=== PATIENT | female | born 1935 | race Caucasian/White ===

== ENCOUNTER 2019-02-10 20:53 | Observation (INO) | payer MEDICARE ==
[2019-02-10] MEDS ORDERED: PANTOPRAZOLE 40 MG/10 ML VIAL IVP ONE (22:08)
--- NOTE | 2019-02-10 22:09 | ED ---
General Adult HPI - General Chief complaint: GI Bleed Stated complaint: Coughing blood, stent on saturday Time Seen by Provider: 02/10/19 21:10 Source: patient Mode of arrival: wheelchair Limitations: no limitations - History of Present Illness Initial comments: Dictation was produced using [employer] dictation software. please excuse any gr ammatical, word or spelling errors. Chief Complaint: 84-year-old female past medical history dyslipidemia hypertension diabetes and coronary artery disease presents with oral bleeding. History of Present Illness: Is an 84-year-old female she was just discharged from [facility] on Saturday for coronary artery disease. Patient had an elective catheterization with stent placement. She was discharged with no significant complications. She has pain in her usual state of health. At approximate 9 PM she was eating ice cream with her family. She noted that there was some blood on her ice cream. Her aspirin was not taking any red ingredients. She then reached for a [employer] and spit up and noted that there is bright red blood. Patient denies any coughing at that time. Patient has any abdominal pain or epigastric pain. Patient does not have a history of ulcer. She has not have been having any postprandial symptoms. Patient denies any coughing during these episodes. The ROS documented in this emergency department record has been reviewed and confirmed by me. Those systems with pertinent positive or negative responses have been documented in the HPI. All other systems are other negative and/or noncontributory. PHYSICAL EXAM: General Impression: Alert and oriented x3, not in acute distress HEENT: Normocephalic atraumatic, extra-ocular movements intact, pupils equal and reactive to light bilaterally, mucous membranes moist, no oral lesions. Cardiovascular: Heart regular rate and rhythm, S1&S2 audible, no murmurs, rubs or gallops Chest: Lungs clear to auscultation bilaterally, no rhonchi, no wheeze, no rales Abdomen: Bowel sounds present, abdomen soft, non-tender, non-distended, no organomegaly Musculoskeletal: Pulses present and equal in all extremities, no peripheral edema Motor: no focal deficits noted Neurological: CN II-XII grossly intact, no focal motor or sensory deficits noted Skin: Intact with no visualized rashes Psych: Normal affect and mood ED course: 84-year-old female presents with bleeding noted from her mouth. Is unclear whether it's hemoptysis or hematemesis given that the bleeding is not associated with coughing or retching. On arrival are within acceptable limits. Patient was observed in emergency department should he have another episode. There was no coughing. There is more suspicion of hematemesis versus hemoptysis.Laboratory evaluation obtained. Leukocytosis of 18.3. This is likely related to recent cardiac catheterization and stress. Coag panel unremarkable. Metabolic panel is negative for any acute issues. Acute abdominal series is read by radiologist. They noted there is patchy bilateral interstitial airspace opacities. Sulci large cardiac silhouette. There is some lucency noted the diaphragmatic region which may represent pneumoperitoneum. Patient denies any abdominal pain whatsoever today. Likely not pneumoperitoneum based on physical examination. Patient continued to have couple episodes of blood in her spit up. Patient given Protonix. We will place patient in observ ation unit with GI on consultation. - Related Data Home Medications Medication Instructions Recorded Confirmed Cyanocobalamin [Vitamin B-12] 1,000 mcg PO DAILY 03/05/15 02/10/19 Multivitamins, Thera [Multivitamin 1 tab PO DAILY 03/05/15 02/10/19 (formulary)] Potassium 99 mg PO DAILY 03/05/15 02/10/19 Atorvastatin [Lipitor] 20 mg PO HS 03/11/15 02/10/19 Aspirin EC [Ecotrin Low Dose] 81 mg PO DAILY 02/10/19 02/10/19 Cetirizine HCl [Zyrtec] 10 mg PO DAILY PRN 02/10/19 02/10/19 Cholecalciferol [Vitamin D3 (25 1,000 unit PO DAILY 02/10/19 02/10/19 Mcg = 1000 Iu)] Clopidogrel [Plavix] 75 mg PO DAILY 02/10/19 02/10/19 Famotidine [Pepcid] 20 mg PO DAILY 02/10/19 02/10/19 Felodipine [Felodipine ER] 10 mg PO DAILY 02/10/19 02/10/19 Ferrous Sulfate [Feosol] 325 mg PO DAILY 02/10/19 02/10/19 L.acidoph,Paracasei, B.lactis 1 cap PO DAILY 02/10/19 02/10/19 [Probiotic] Linagliptin [Tradjenta] 5 mg PO DAILY 02/10/19 02/10/19 amLODIPine [Norvasc] 5 mg PO DAILY 02/10/19 02/10/19 Allergies Allergy/AdvReac Type Severity Reaction Status Date / Time articaine HCl Allergy Rash/Hives Verified 02/10/19 21:21 [From Septocaine] codeine Allergy Rash/Hives Verified 02/10/19 21:21 epinephrine [From Septocaine] Allergy Rash/Hives Verified 02/10/19 21:21 erythromycin base Allergy Rash/Hives Verified 02/10/19 21:21 Iodinated Contrast- Oral and Allergy Rash/Hives Verified 02/10/19 21:21 IV Dye [Iodinated Contrast Media - IV Dye] morphine Allergy Nausea & Verified 02/10/19 21:21 Vomiting phenazopyridine HCl Allergy Rash/Hives Verified 02/10/19 21:21 [From Pyridium] streptomycin Allergy Rash/Hives Verified 02/10/19 21:21 Sulfa (Sulfonamide Allergy Rash/Hives Verified 02/10/19 21:21 Antibiotics) Review of Systems ROS Statement: Those systems with pertinent positive or pertinent negative responses have been documented in the HPI. ROS Other: All systems not noted in ROS Statement are negative. Past Medical History Past Medical History: Hyperlipidemia, Hypertension History of Any Multi-Drug Resistant Organisms: None Reported Past Surgical History: Appendectomy, Heart Catheterization With Stent Additional Past Surgical History / Comment(s): Rt foot hammer toe repair, breast biopsy Past Anesthesia/Blood Transfusion Reactions: No Reported Reaction Past Psychological History: No Psychological Hx Reported Smoking Status: Former smoker Past Alcohol Use History: None Reported Past Drug Use History: None Reported - Past Family History Mother Family Medical History: Diabetes Mellitus General Exam Limitations: no limitations Course Vital Signs 02/10/19 21:05 Temperature 98.1 F Pulse Rate 61 Respiratory 18 Rate Blood Pressure 125/56 O2 Sat by Pulse 94 L Oximetry Medical Decision Making - Lab Data Result diagrams: 02/10/19 22:31 02/10/19 22:31 Lab Results 02/10/19 02/10/19 02/10/19 Range/Units 22:31 22:31 22:31 WBC 18.3 H (3.8-10.6) k/uL RBC 3.83 (3.80-5.40) m/uL Hgb 11.5 (11.4-16.0) gm/dL Hct 35.6 (34.0-46.0) % MCV 93.1 (80.0-100.0) fL MCH 30.0 (25.0-35.0) pg MCHC 32.2 (31.0-37.0) g/dL RDW 16.0 H (11.5-15.5) % Plt Count 343 (150-450) k/uL Neutrophils % 83 % Lymphocytes % 10 % Monocytes % 6 % Eosinophils % 1 % Basophils % 0 % Neutrophils # 15.1 H (1.3-7.7) k/uL Lymphocytes # 1.8 (1.0-4.8) k/uL Monocytes # 1.0 (0-1.0) k/uL Eosinophils # 0.1 (0-0.7) k/uL Basophils # 0.0 (0-0.2) k/uL Anisocytosis Slight PT 10.9 (9.0-12.0) sec INR 1.0 (<1.2) Sodium 141 (137-145) mmol/L Potassium 3.8 (3.5-5.1) mmol/L Chloride 106 (98-107) mmol/L Carbon Dioxide 26 (22-30) mmol/L Anion Gap 9 mmol/L BUN 47 H (7-17) mg/dL Creatinine 1.34 H (0.52-1.04) mg/dL Est GFR (CKD-EPI)AfAm 42 (>60 ml/min/1.73 sqM) Est GFR (CKD-EPI)NonAf 37 (>60 ml/min/1.73 sqM) Glucose 126 H (74-99) mg/dL Calcium 10.1 (8.4-10.2) mg/dL Total Bilirubin 0.4 (0.2-1.3) mg/dL AST 22 (14-36) U/L ALT 17 (9-52) U/L Alkaline Phosphatase 39 (38-126) U/L Total Protein 6.4 (6.3-8.2) g/dL Albumin 3.6 (3.5-5.0) g/dL Disposition Clinical Impression: Hematemesis Disposition: ADMITTED IP TO THIS [facility] Condition: Fair Referrals: Josh Llanos MD [Primary Care Provider] - 1-2 days Time of Disposition: 23:11 Decision Time: 23:11
--- NOTE | 2019-02-10 22:39 | XR ---
EXAM: XR Abdomen 2 Views With XR Chest CLINICAL HISTORY: ITS.REASON XR Reason: Pain TECHNIQUE: Frontal view of the chest, frontal view of the abdomen/pelvis and upright or decubitus view of the abdomen. COMPARISON: No relevant prior studies available. FINDINGS: Lungs: Patchy bilateral interstitial and airspace opacities. Pleural space: No significant pleural effusion. Heart: Enlarged cardiac silhouette. Mediastinum: Unremarkable. Intraperitoneal space: Lucency in the diaphragmatic region, cannot exclude pneumoperitoneum. Gastrointestinal tract: Nonspecific bowel gas pattern. Moderate amount of stool in the colon. Bones/joints: Degenerative changes. IMPRESSION: 1. Patchy bilateral interstitial and airspace opacities. Correlate clinically regarding infection or edema. 2. Enlarged cardiac silhouette. 3. Lucency in the diaphragmatic region, cannot exclude pneumoperitoneum. Correlate with history of recent surgery versus perforated hollow viscus. CT may be considered if indicated. <MYCVCSECTION> Critical [employer] 02/10/19 22:53 Verify Receipt Verified receipt with MELODY Harvey for Dr. Carias on 02/10 22:52 (-04:00)
[2019-02-10 22:45] LABS: Anisocytosis Slight; Basophils % (A) 0 %; Eosinophils # (A) 0.1 k/uL (0-0.7); Eosinophils % (A) 1 %; HCT 35.6 % (34.0-46.0); HGB 11.5 gm/dL (11.4-16.0); Lymphocytes # (A) 1.8 k/uL (1.0-4.8); Lymphocytes % (A) 10 %; MCHC 32.2 g/dL (31.0-37.0); MCV 93.1 fL (80.0-100.0); Mean Platelet Volume 7.7; Monocytes % (A) 6 %; Neutrophils # (A) 15.1 k/uL (1.3-7.7); Neutrophils % (A) 83 %; Platelet Count 343 k/uL (150-450); RBC 3.83 m/uL (3.80-5.40); WBC 18.3 k/uL (3.8-10.6)
[2019-02-10 22:49] LABS: Prothrombin Time 10.9 sec (9.0-12.0)
[2019-02-10 22:53] LABS: Albumin 3.6 g/dL (3.5-5.0); Calcium 10.1 mg/dL (8.4-10.2); Potassium 3.8 mmol/L (3.5-5.1); Total Bilirubin 0.4 mg/dL (0.2-1.3); Total Protein 6.4 g/dL (6.3-8.2)
[2019-02-10] MEDS ORDERED: NALOXONE 0.4 MG/ML 1 ML VIAL IV PRN (23:05)
[2019-02-10] MEDS ORDERED: ONDANSETRON 4 MG/2 ML VIAL IVP PRN (23:05)
[2019-02-11] MEDS: SODIUM CHLORIDE 0.9% 1,000 ML IV SCH ×2 (01:28→09:30)
[2019-02-11] MEDS ORDERED: PANTOPRAZOLE 40 MG/10 ML VIAL IV SCH ×2 (09:00→21:00)
[2019-02-11 11:58] LABS: Anisocytosis Slight; Basophils # (A) 0.1 k/uL (0-0.2); Basophils % (A) 0 %; Eosinophils # (A) 0.5 k/uL (0-0.7); Eosinophils % (A) 4 %; HCT 33.4 % (34.0-46.0); HGB 10.6 gm/dL (11.4-16.0); Lymphocytes # (A) 1.8 k/uL (1.0-4.8); Lymphocytes % (A) 13 %; MCH 30.1 pg (25.0-35.0); MCHC 31.6 g/dL (31.0-37.0); MCV 95.2 fL (80.0-100.0); Mean Platelet Volume 7.9; Monocytes # (A) 0.6 k/uL (0-1.0); Monocytes % (A) 4 %; Neutrophils # (A) 10.6 k/uL (1.3-7.7); Neutrophils % (A) 78 %; Platelet Count 309 k/uL (150-450); RBC 3.51 m/uL (3.80-5.40); RDW 16.2 % (11.5-15.5); WBC 13.7 k/uL (3.8-10.6)
[2019-02-11 12:02] LABS: Glucose,Whole Blood 84 mg/dL (75-99)
[2019-02-11] MEDS: ASPIRIN 81 MG PO SCH ×2 (12:23→14:42)
[2019-02-11] MEDS: CLOPIDOGREL 75 MG TAB PO SCH ×2 (12:23→14:42)
--- NOTE | 2019-02-11 12:30 | P.CONS ---
History of Present Illness - Reason for Consult Consult date: 02/11/19 GI bleed evaluation Requesting physician: Diallo Cerda - Chief Complaint Oral bleeding - History of Present Illness 84-year-old female with a past medical history of CAD with recent heart catheterization PCI drug eluting stent placement 5 days ago for 70% blockage of the LAD at [facility] placed on dual antiplatelet therapy, obesity, diabetes, hypertension, hyperlipidemia. Patient presents with an episode of oral bleeding. She describes it as eating a spoon of vanilla ice cream and noticing some red-colored blood. Patient is unsure if this was coming from her stomach nose or mouth. She did have a small nosebleed yesterday. But she is very adamant that she did not vomit blood. She denies hematochezia or melena. She reports darker color bowel movements secondary to iron therapy. No recent EGD however she did have an EGD colonoscopy around 3 years ago at [facility] to her memory was unremarkable. Admission white count 18.3. Presently 13.7. Hemoglobin 11.5 presently 10.6. MCV 93-95. Platelets 309. INR 1.0. BUN 47. Creatinine 1.3. LFTs within normal limits. Takes Pepcid at home. No history of peptic ulcer. Denies abdominal pain or weight loss. Abdominal chest x-rays reported patchy bilateral interstitial and airspace opacities. Correlate clinically regarding infection or edema. Enlarged cardiac silhouette. Lucency in the diaphragmatic region cannot exclude pneumoperitoneum correlate with recent surgery versus perforated hollow viscus. Review of previous CBCs average hemoglobin trends around 12 range. No NSAIDs excessive aspirin or alcohol consumption. Review of Systems Constitutional: Denies fever, chills, sweats, weight gain, or loss. HEENT: Negative for migraines, blurred vision or loss, earaches, drainage, tinnitus, oral mucosal lesions, dysphagia, or odynophagia. CARDIAC: Negative for chest pain, arrhythmias, or palpitation. RESPIRATORY: Negative for shortness of breath, hemoptysis, cough, or sputum production. GI: See HPI for pertinent findings. : Negative for hematuria, urgency, frequency, polyuria, or dysuria. GYNc: Denies possibility of . Negative vaginal discharge. MUSCULOSKELETAL: Negative for muscle aches, swelling, arthritis, and arthralgia s. NEUROLOGIC: Negative for stroke or TIA. ENDOCRINE: Negative for thyroid problems. SKIN: Negative for rash or itching. PSYCHIATRIC: Negative history for depression and anxiety Past Medical History Past Medical History: Hyperlipidemia, Hypertension History of Any Multi-Drug Resistant Organisms: None Reported Past Surgical History: Appendectomy, Heart Catheterization With Stent Additional Past Surgical History / Comment(s): Rt foot hammer toe repair, breast biopsy, right leg surgery Past Anesthesia/Blood Transfusion Reactions: No Reported Reaction Date of Last Stent Placement:: na pt. dosnt remember Past Psychological History: No Psychological Hx Reported Smoking Status: Former smoker Past Alcohol Use History: None Reported Past Drug Use History: None Reported - Past Family History Mother Family Medical History: Diabetes Mellitus Medications and Allergies Home Medications Medication Instructions Recorded Confirmed Type Cyanocobalamin [Vitamin B-12] 1,000 mcg PO DAILY 03/05/15 02/10/19 History Multivitamins, Thera [Multivitamin 1 tab PO DAILY 03/05/15 02/10/19 History (formulary)] Potassium 99 mg PO DAILY 03/05/15 02/10/19 History Atorvastatin [Lipitor] 20 mg PO HS 03/11/15 02/10/19 History Aspirin EC [Ecotrin Low Dose] 81 mg PO DAILY 02/10/19 02/10/19 History Cetirizine HCl [Zyrtec] 10 mg PO DAILY PRN 02/10/19 02/10/19 History Cholecalciferol [Vitamin D3 (25 1,000 unit PO DAILY 02/10/19 02/10/19 History Mcg = 1000 Iu)] Clopidogrel [Plavix] 75 mg PO DAILY 02/10/19 02/10/19 History Famotidine [Pepcid] 20 mg PO DAILY 02/10/19 02/10/19 History Felodipine [Felodipine ER] 10 mg PO DAILY 02/10/19 02/10/19 History Ferrous Sulfate [Feosol] 325 mg PO DAILY 02/10/19 02/10/19 History L.acidoph,Paracasei, B.lactis 1 cap PO DAILY 02/10/19 02/10/19 History [Probiotic] Linagliptin [Tradjenta] 5 mg PO DAILY 02/10/19 02/10/19 History amLODIPine [Norvasc] 5 mg PO DAILY 02/10/19 02/10/19 History Allergies Allergy/AdvReac Type Severity Reaction Status Date / Time articaine HCl Allergy Rash/Hives Verified 02/10/19 21:21 [From Septocaine] codeine Allergy Rash/Hives Verified 02/10/19 21:21 epinephrine [From Septocaine] Allergy Rash/Hives Verified 02/10/19 21:21 erythromycin base Allergy Rash/Hives Verified 02/10/19 21:21 Iodinated Contrast- Oral and Allergy Rash/Hives Verified 02/10/19 21:21 IV Dye [Iodinated Contrast Media - IV Dye] morphine Allergy Nausea & Verified 02/10/19 21:21 Vomiting phenazopyridine HCl Allergy Rash/Hives Verified 02/10/19 21:21 [From Pyridium] streptomycin Allergy Rash/Hives Verified 02/10/19 21:21 Sulfa (Sulfonamide Allergy Rash/Hives Verified 02/10/19 21:21 Antibiotics) Physical Exam Vitals: Vital Signs Temp Pulse Pulse Resp BP BP Pulse Ox 02/11/19 07:05 97.6 F 71 16 110/56 91 L 02/11/19 01:16 97.8 F 91 15 135/77 92 L 02/11/19 00:08 92 18 149/74 94 L 02/10/19 21:05 98.1 F 61 18 125/56 94 L Intake and Output 02/10/19 02/11/19 02/11/19 22:59 06:59 14:59 Other: Voiding Method Toilet # Voids 1 Weight 97.069 kg General appearance: The patient is alert, oriented, in no acute distress. HET: Head is normocephalic and atraumatic. Pupils are equal and reactive. Oropharynx is clear without lesions. Neck: Supple without lymphadenopathy. Trachea midline. Heart: S1 S2. Regular rate and rhythm. Lungs: No crackles or wheezes are heard. Abdomen: Soft, nontender, nondistended with bowel sounds. No peritoneal signs. No palpable organomegaly or masses. Extremities: Normal skin color and turgor. No cyanosis, rash, ulceration, clubbing, or edema. Radial and pedal pulses are 2/4 bilaterally. Neurological: No focal deficits. Strength and sensation are grossly intact. Results CBC & Chem 7: 02/11/19 11:42 02/10/19 22:31 Labs: Abnormal Lab Results - Last 24 Hours (Table) 02/10/19 02/10/19 02/11/19 Range/Units 22:31 22:31 11:42 WBC 18.3 H 13.7 H (3.8-10.6) k/uL RBC 3.51 L (3.80-5.40) m/uL Hgb 10.6 L (11.4-16.0) gm/dL Hct 33.4 L (34.0-46.0) % RDW 16.0 H 16.2 H (11.5-15.5) % Neutrophils # 15.1 H 10.6 H (1.3-7.7) k/uL BUN 47 H (7-17) mg/dL Creatinine 1.34 H (0.52-1.04) mg/dL Glucose 126 H (74-99) mg/dL Abdominal x-ray: report reviewed (Dr. Mora) Assessment and Plan (1) Anemia Narrative/Plan: 84-year-old female history of underlying iron deficiency anemia recent heart catheterization placement of drug eluting stent LAD 5 days ago at outside facility maintained on dual antiplatelet therapy presents with an isolated episode of oral bleeding and nosebleed unclear source with suspected component of acute blood loss. Clinically she has a benign abdomen without overt symptoms of an acute GI bleed however an underlying occult upper GI bleed cannot be excluded with elevated BUN and episode of oral bleeding. Patient vehemently denies abdominal pain, hematemesis, hematochezia or melena. Chest abdominal x- rays on admission could not exclude pneumoperitoneum. Current Visit: Yes Status: Acute Code(s): D64.9 - ANEMIA, UNSPECIFIED SNOMED Code(s): 890325440 (2) Elevated BUN Current Visit: Yes Status: Acute Code(s): R79.9 - ABNORMAL FINDING OF BLOOD CHEMISTRY, UNSPECIFIED SNOMED Code(s): 295423902 (3) S/P cardiac cath Current Visit: Yes Status: Acute Code(s): Z98.890 - OTHER SPECIFIED POSTPROCEDURAL STATES SNOMED Code(s): 82188856220266 (4) Hx of heart artery stent Current Visit: Yes Status: Acute Code(s): Z95.5 - PRESENCE OF CORONARY ANGIOPLASTY IMPLANT AND GRAFT SNOMED Code(s): 007442190 Plan: 1. STAT CT A/P. 2. GS consult. 3. NPO. 4. Hold DAPT until CT can be reviewed by GS. 5. Protonix 40 mg IV daily. Thank you for this kind referral and the opportunity to participate in the care of your patient. This consultation was discussed with Dr. Mora. The impre ssion and plan of care have been directed as dictated.
[2019-02-11] MEDS ORDERED: LORATADINE 10 MG TAB PO PRN (12:37)
--- NOTE | 2019-02-11 13:17 | CT ---
EXAMINATION TYPE: CT ChestAbdPelvis wo con DATE OF EXAM: 02/11/2019 COMPARISON: Same day acute abdominal series with chest x-ray HISTORY: Questionable free air on Xray. Abnormal x-ray. CT DLP: 1121.8 mGycm. Automated Exposure Control for Dose Reduction was Utilized. TECHNIQUE: CT scan of the thorax, abdomen and pelvis is performed without oral or IV contrast. FINDINGS: LUNGS: Small to tiny bilateral pleural effusions are seen. There is scattered parenchymal fibrosis in cluding bilateral peripheral reticulation with some honeycombing in the mid to lower lungs. There is 9 x 8 mm right mid lung nodule axial image 28 which warrants follow-up. No pneumothorax is seen bilat erally. No suspicious focal infiltrate. MEDIASTINUM: There are no greater than 1 cm noncalcified hilar or mediastinal lymph nodes. Prominent but partially calcified pericarinal lymph node noted axial image 19. No pericardial effusion is seen . Cardiomegaly is present. Coronary artery dilatation and/or stents are seen. LIVER/GB: Dependent gallstone in gallbladder. PANCREAS: No significant abnormality is seen. SPLEEN: Numerous calcifications throughout the spleen. Finding consistent with product of old granulo matous disease. ADRENALS: Low dense thickening to left adrenal gland is consistent with benign lipid rich hyperplasia . KIDNEYS: Cortical thinning of both kidneys is seen. No hydronephrosis is present. There is vascular c alcification of the upper pole of the left kidney axial image 51. BOWEL: No suspicious small and large bowel dilatation. Scattered colonic diverticula without CT evide nce for acute diverticulitis. Poorly distended stomach which is most suboptimally evaluated. GENITAL ORGANS: Anteverted uterus. LYMPH NODES: No greater than 1cm abdominal or pelvic lymph nodes are appreciated. OSSEOUS STRUCTURES: S- shaped scoliosis with moderate multilevel spurring. OTHER: Moderate calcified plaque of aorta extends into branch vessels. IMPRESSION: No free air is present. Moderate to severe parenchymal changes bilateral lungs raise conc kandice for underlying IPF. No acute intrathoracic or intra-abdominal process .
--- NOTE | 2019-02-11 13:50 | P.GSCN ---
<Sharri Gamboa - Last Filed: 02/11/19 16:16> History of Present Illness Consult date: 02/11/19 Reason for Consult: possible free air Requesting physician: Aurea Rios History of present illness: CHIEF COMPLAINT: possible free air HISTORY OF PRESENT ILLNESS: 84 year old female who recently underwent cardiac catheterization with stent placement on Wednesday February 06, 2019 at [facility] and was started on aspirin and plavix. Patient states she was discharged home Saturday and has been feeling well. She was eating ice cream yesterday and when she removed the spoon from her mouth she noticed there was some bright red blood on her spoon. She reports "After that, I spit up a little blood like how a baby spits up". Patient presented to the ER for further evaluation. She reports having a small nosebleed on the way to the hospital also. She denies further bleeding since that time. She denies nausea or vomiting. Denies abdominal pain. She reports having a bowel movement yesterday that was normal in characteristics. Patient denies any bright red blood. She does report her stools are usually darker in color secondary to daily iron. Patient reports last EGD/colonoscopy was two [facility] at [facility]. Patient states she underwent EGD and colonoscopy at that time secondary to anemia. Patient states she was told EGD and colonoscopy were normal. Patient denies history of diverticulosis. General surgery was consulted for further evaluation of possible free air per radiology dictation of x-rays. PAST MEDICAL HISTORY: See list. PAST SURGICAL HISTORY: See list. MEDICATIONS: See list. ALLERGIES: See list. SOCIAL HISTORY: No illicit drug use. REVIEW OF SYSTEMS: CONSTITUTIONAL: Denies fever or chills. HEENT: Denies blurred vision, vision changes, or eye pain. Reports recent nosebleed. ENDOCRINE: Denies heat or cold intolerance. CARDIOVASCULAR: Denies chest pain or pressure. Recent cardiac cath with stent placement. RESPIRATORY: No shortness of breath. GASTROINTESTINAL: See HPI for pertinent information NEURO: Denies history of seizures. PSYCH: No depression or suicidal ideation HEMATOLOGIC: Denies bleeding disorders. Reports history of anemia. LYMPHATIC: The patient denies any lumps and bumps around the neck. GENITOURINARY: Denies any blood in urine or increased urinary frequency. MUSCULOSKELETAL: Denies myalgias. Denies joint swelling. Denies decreased range of motion beyond patients baseline. SKIN: Denies pruitis. Denies rash. PHYSICAL EXAM: VITAL SIGNS: Currently stable. GENERAL: Well-developed in no acute distress. HEENT: No sclera icterus. Extraocular movements grossly intact. Moist buccal mucosa. Head is atraumatic, normocephalic. Hears conversational speech. No nasal drain age. NECK: Supple without lymphadenopathy. CHEST: Non-labored respirations and equal bilateral excursions. CARDIOVASCULAR: Regular rate with regular rhythm. Palpable 2+ radial pulses. ABDOMEN: Obese. Soft. Nondistended. Nontender. Positive bowel sounds. Ecchymosis to left lower quadrant and right lower quadrant. No signs of peritonitis. MUSCULOSKELETAL: No clubbing, cyanosis or edema. NEUROLOGIC: No focal or lateralizing signs. Cranial nerves II through XII grossly intact. PSYCH: Appropriate affect. Alert and oriented to person, place and time. SKIN: Well perfused. Good skin turgor. LABORATORY DATA: Laboratory data on admission reveals white count 18.3. Hemoglobin 11.5. Sodium 141. Potassium 3.8. BUN 47. Creatinine 1.34. Repeat white count this morning 13.7. Hemoglobin 10.6. IMAGING: Per radiology dictation: 1. Abdomen and chest XR: Patchy bilateral interstitial and airspace opacities. Correlate clinically regarding infection or edema. Enlarged cardiac silhouette. Lucency in diaphragmatic region. Cannot exclude pneumoperitoneum. Correlate with history of recent surgery versus perforated hollow viscus. 2. CT abdomen/pelvis: No free air is present. No suspicious small or large bowel dilation. Scattered colonic diverticula without CT evidence for acute diverticulitis. ASSESSMENT: 1. Episode of bleeding from oral cavity and nosebleed, resolved, possible upper GI bleed 2. Pneumoperitoneum, ruled out 3. Coronary artery disease with recent stent placement, started on aspirin and plavix 4. History of iron deficiency anemia with possible component of acute blood loss anemia PLAN: Patient clinically doing well without pneumoperitoneum. No surgical intervention recommended. Okay to resume aspirin and plavix from surgical standpoint. Will defer to medicine Okay to resume diet from a surgical standpoint. Will defer to GI Nurse practitioner note has been reviewed by physician. Signing provider agrees with the documented findings, assessment, and plan of care. Past Medical History Past Medical History: Hyperlipidemia, Hypertension History of Any Multi-Drug Resistant Organisms: None Reported Past Surgical History: Appendectomy, Heart Catheterization With Stent Additional Past Surgical History / Comment(s): Rt foot hammer toe repair, breast biopsy, right leg surgery Past Anesthesia/Blood Transfusion Reactions: No Reported Reaction Date of Last Stent Placement:: na pt. dosnt remember Past Psychological History: No Psychological Hx Reported Smoking Status: Former smoker Past Alcohol Use History: None Reported Past Drug Use History: None Reported - Past Family History Mother Family Medical History: Diabetes Mellitus Medications and Allergies Home Medications Medication Instructions Recorded Confirmed Type Cyanocobalamin [Vitamin B-12] 1,000 mcg PO DAILY 03/05/15 02/10/19 History Multivitamins, Thera [Multivitamin 1 tab PO DAILY 03/05/15 02/10/19 History (formulary)] Potassium 99 mg PO DAILY 03/05/15 02/10/19 History Atorvastatin [Lipitor] 20 mg PO HS 03/11/15 02/10/19 History Aspirin EC [Ecotrin Low Dose] 81 mg PO DAILY 02/10/19 02/10/19 History Cetirizine HCl [Zyrtec] 10 mg PO DAILY PRN 02/10/19 02/10/19 History Cholecalciferol [Vitamin D3 (25 1,000 unit PO DAILY 02/10/19 02/10/19 History Mcg = 1000 Iu)] Clopidogrel [Plavix] 75 mg PO DAILY 02/10/19 02/10/19 History Famotidine [Pepcid] 20 mg PO DAILY 02/10/19 02/10/19 History Felodipine [Felodipine ER] 10 mg PO DAILY 02/10/19 02/10/19 History Ferrous Sulfate [Feosol] 325 mg PO DAILY 02/10/19 02/10/19 History L.acidoph,Paracasei, B.lactis 1 cap PO DAILY 02/10/19 02/10/19 History [Probiotic] Linagliptin [Tradjenta] 5 mg PO DAILY 02/10/19 02/10/19 History amLODIPine [Norvasc] 5 mg PO DAILY 02/10/19 02/10/19 History Allergies Allergy/AdvReac Type Severity Reaction Status Date / Time articaine HCl Allergy Rash/Hives Verified 02/10/19 21:21 [From Septocaine] codeine Allergy Rash/Hives Verified 02/10/19 21:21 epinephrine [From Septocaine] Allergy Rash/Hives Verified 02/10/19 21:21 erythromycin base Allergy Rash/Hives Verified 02/10/19 21:21 Iodinated Contrast- Oral and Allergy Rash/Hives Verified 02/10/19 21:21 IV Dye [Iodinated Contrast Media - IV Dye] morphine Allergy Nausea & Verified 02/10/19 21:21 Vomiting phenazopyridine HCl Allergy Rash/Hives Verified 02/10/19 21:21 [From Pyridium] streptomycin Allergy Rash/Hives Verified 02/10/19 21:21 Sulfa (Sulfonamide Allergy Rash/Hives Verified 02/10/19 21:21 Antibiotics) Surgical - Exam Vital Signs Temp Pulse Resp BP Pulse Ox 98.1 F 61 18 125/56 94 L 02/10/19 21:05 02/10/19 21:05 02/10/19 21:05 02/10/19 21:05 02/10/19 21:05 Results - Labs 02/11/19 11:42 02/10/19 22:31 Abnormal Lab Results - Last 24 Hours (Table) 02/10/19 02/10/19 02/11/19 Range/Units 22:31 22:31 11:42 WBC 18.3 H 13.7 H (3.8-10.6) k/uL RBC 3.51 L (3.80-5.40) m/uL Hgb 10.6 L (11.4-16.0) gm/dL Hct 33.4 L (34.0-46.0) % RDW 16.0 H 16.2 H (11.5-15.5) % Neutrophils # 15.1 H 10.6 H (1.3-7.7) k/uL BUN 47 H (7-17) mg/dL Creatinine 1.34 H (0.52-1.04) mg/dL Glucose 126 H (74-99) mg/dL Diabetes panel 02/10/19 Range/Units 22:31 Sodium 141 (137-145) mmol/L Potassium 3.8 (3.5-5.1) mmol/L Chloride 106 (98-107) mmol/L Carbon Dioxide 26 (22-30) mmol/L BUN 47 H (7-17) mg/dL Creatinine 1.34 H (0.52-1.04) mg/dL Glucose 126 H (74-99) mg/dL Calcium 10.1 (8.4-10.2) mg/dL AST 22 (14-36) U/L ALT 17 (9-52) U/L Alkaline Phosphatase 39 (38-126) U/L Total Protein 6.4 (6.3-8.2) g/dL Albumin 3.6 (3.5-5.0) g/dL Calcium panel 02/10/19 Range/Units 22:31 Calcium 10.1 (8.4-10.2) mg/dL Albumin 3.6 (3.5-5.0) g/dL Pituitary panel 02/10/19 Range/Units 22:31 Sodium 141 (137-145) mmol/L Potassium 3.8 (3.5-5.1) mmol/L Chloride 106 (98-107) mmol/L Carbon Dioxide 26 (22-30) mmol/L BUN 47 H (7-17) mg/dL Creatinine 1.34 H (0.52-1.04) mg/dL Glucose 126 H (74-99) mg/dL Calcium 10.1 (8.4-10.2) mg/dL Adrenal panel 02/10/19 Range/Units 22:31 Sodium 141 (137-145) mmol/L Potassium 3.8 (3.5-5.1) mmol/L Chloride 106 (98-107) mmol/L Carbon Dioxide 26 (22-30) mmol/L BUN 47 H (7-17) mg/dL Creatinine 1.34 H (0.52-1.04) mg/dL Glucose 126 H (74-99) mg/dL Calcium 10.1 (8.4-10.2) mg/dL Total Bilirubin 0.4 (0.2-1.3) mg/dL AST 22 (14-36) U/L ALT 17 (9-52) U/L Alkaline Phosphatase 39 (38-126) U/L Total Protein 6.4 (6.3-8.2) g/dL Albumin 3.6 (3.5-5.0) g/dL Assessment and Plan (1) Mouth bleeding Current Visit: Yes Status: Acute Code(s): K13.79 - OTHER LESIONS OF ORAL MUCOSA SNOMED Code(s): 86661063 (2) Hx of heart artery stent Current Visit: Yes Status: Acute Code(s): Z95.5 - PRESENCE OF CORONARY ANGIOPLASTY IMPLANT AND GRAFT SNOMED Code(s): 624469720 (3) S/P cardiac cath Current Visit: Yes Status: Acute Code(s): Z98.890 - OTHER SPECIFIED POSTPROCEDURAL STATES SNOMED Code(s): 32395544684174 <Kati Ames N - Last Filed: 02/11/19 19:17> History of Present Illness History of present illness: Patient seen and evaluated. She reports recently being seen at [facility] for stent placement. She went to the bathroom today denies any hematemesis or blood in her stools earlier this afternoon including at the time of my assessment. I personally reviewed her abdominal x-ray which demonstrated no free air that is disconcordant with the radiologist's interpretation. I personally reviewed her computed tomography scan also demonstrated an umbilical hernia and she is asymptomatic. No surgical intervention. Patient is clear from a surgical standpoint for discharge when medically stable. Surgical - Exam Vital Signs Temp Pulse Resp BP Pulse Ox 98.1 F 61 18 125/56 94 L 02/10/19 21:05 02/10/19 21:05 02/10/19 21:05 02/10/19 21:05 02/10/19 21:05 Results - Labs 02/11/19 11:42 02/10/19 22:31 Abnormal Lab Results - Last 24 Hours (Table) 02/10/19 02/10/19 02/11/19 Range/Units 22:31 22:31 11:42 WBC 18.3 H 13.7 H (3.8-10.6) k/uL RBC 3.51 L (3.80-5.40) m/uL Hgb 10.6 L (11.4-16.0) gm/dL Hct 33.4 L (34.0-46.0) % RDW 16.0 H 16.2 H (11.5-15.5) % Neutrophils # 15.1 H 10.6 H (1.3-7.7) k/uL BUN 47 H (7-17) mg/dL Creatinine 1.34 H (0.52-1.04) mg/dL Glucose 126 H (74-99) mg/dL Diabetes panel 02/10/19 Range/Units 22:31 Sodium 141 (137-145) mmol/L Potassium 3.8 (3.5-5.1) mmol/L Chloride 106 (98-107) mmol/L Carbon Dioxide 26 (22-30) mmol/L BUN 47 H (7-17) mg/dL Creatinine 1.34 H (0.52-1.04) mg/dL Glucose 126 H (74-99) mg/dL Calcium 10.1 (8.4-10.2) mg/dL AST 22 (14-36) U/L ALT 17 (9-52) U/L Alkaline Phosphatase 39 (38-126) U/L Total Protein 6.4 (6.3-8.2) g/dL Albumin 3.6 (3.5-5.0) g/dL Calcium panel 02/10/19 Range/Units 22:31 Calcium 10.1 (8.4-10.2) mg/dL Albumin 3.6 (3.5-5.0) g/dL Pituitary panel 02/10/19 Range/Units 22:31 Sodium 141 (137-145) mmol/L Potassium 3.8 (3.5-5.1) mmol/L Chloride 106 (98-107) mmol/L Carbon Dioxide 26 (22-30) mmol/L BUN 47 H (7-17) mg/dL Creatinine 1.34 H (0.52-1.04) mg/dL Glucose 126 H (74-99) mg/dL Calcium 10.1 (8.4-10.2) mg/dL Adrenal panel 02/10/19 Range/Units 22:31 Sodium 141 (137-145) mmol/L Potassium 3.8 (3.5-5.1) mmol/L Chloride 106 (98-107) mmol/L Carbon Dioxide 26 (22-30) mmol/L BUN 47 H (7-17) mg/dL Creatinine 1.34 H (0.52-1.04) mg/dL Glucose 126 H (74-99) mg/dL Calcium 10.1 (8.4-10.2) mg/dL Total Bilirubin 0.4 (0.2-1.3) mg/dL AST 22 (14-36) U/L ALT 17 (9-52) U/L Alkaline Phosphatase 39 (38-126) U/L Total Protein 6.4 (6.3-8.2) g/dL Albumin 3.6 (3.5-5.0) g/dL
[2019-02-11] MEDS: INSULIN ASPART (NovoLOG) 100 UNIT/ML VIAL SQ SCH ×3 (14:06→22:21)
[2019-02-11] MEDS: FERROUS SULFATE 325 MG TAB PO SCH (14:41)
--- NOTE | 2019-02-11 15:36 | P.HPIM ---
History of Present Illness H&P Date: 02/11/19 Chief Complaint: Blood from the mouth History of presenting complaint: This is a very pleasant 84-year-old patient of Dr. Dr. Josh Llanos. Chronic stable medical conditions include hypertension, hyperlipidemia, coronary artery disease with stent. Patient had a stent placed about a week ago at an outside hospital. Patient is on aspirin and Plavix. Patient noticed yesterday when she opened her mouth blood was coming out. She is unable to tell me if she coughed it up or she vomited. She stated that she simply opened about the blood came out. It happened a few occasions. No abdominal pain. No tongue biting. No history of peptic ulcer disease. Patient does feel a bit tired. Admitted for the same. GI was consulted. Review of systems: GEN.: Tired EYES: None HEENT: None NECK: None RESPIRATORY: None CARDIOVASCULAR: None GASTROINTESTINAL: None GENITOURINARY: None MUSCULOSKELETAL: Some pain in the joints LYMPHATICS: None HEMATOLOGICAL: None PSYCHIATRY: None NEUROLOGICAL: None Past medical history: Hypertension, hyperlipidemia coronary artery disease with stent 1 week ago Social history: . Did smoke in the past. No significant drink alcohol. Physical examination: VITAL SIGNS: 98.7, 80, 16, 135/73, 93% room air GENERAL: BMI 37.9, sitting up in a chair, comfortable. EYES: Pupils equal. Conjunctiva normal. HEENT: External appearance of nose and ears normal, oral cavity grossly normal. NECK: JVD not raised; masses not palpable. HEART: First and second heart sounds are normal; no edema. LUNGS: Respiratory rate normal; clear to auscultation. ABDOMEN: Soft, nontender, liver spleen not palpable, no masses palpable. PSYCH: Alert and oriented x3; mood and affect normal. NEUROLOGICAL: Cranial nerves grossly intact; no facial asymmetry, power and sensation grossly intact. LYMPHATICS: No lymph nodes palpable in the axilla and neck MUSCULAR skeletal: Evidence of OA especially in the hands and knees Investigations, reviewed and the clinical context: White count 18.3, hemoglobin 11.5, repeat 10.6 platelets 343 potassium 3.8. Bun 47 and creatinine 1.34 Assessment: -This is a patient who is on aspirin and Plavix states that she presented with bleeding through the oral cavity. It is unclear if this bleeding was from the mouth or the GI tract as patient is unable to tell us if she at least vomited or coughed up blood. -Obesity BMI 37.9 -Hyperlipidemia -Essential hypertension -Coronary artery disease with a stent placed a week ago -Primary osteoarthritis of the hands and knees( Plan: Cardiology and gastroenterology was consulted. All medications resumed. Aspirin Plavix was okay to be continued by GI. Care was discussed with the patient. Follow with my consultants. Watch and repeat H&H Past Medical History Past Medical History: Hyperlipidemia, Hypertension History of Any Multi-Drug Resistant Organisms: None Reported Past Surgical History: Appendectomy, Heart Catheterization With Stent Additional Past Surgical History / Comment(s): Rt foot hammer toe repair, breast biopsy, right leg surgery Past Anesthesia/Blood Transfusion Reactions: No Reported Reaction Date of Last Stent Placement:: na pt. dosnt remember Past Psychological History: No Psychological Hx Reported Smoking Status: Former smoker Past Alcohol Use History: None Reported Past Drug Use History: None Reported - Past Family History Mother Family Medical History: Diabetes Mellitus Medications and Allergies Home Medications Medication Instructions Recorded Confirmed Type Cyanocobalamin [Vitamin B-12] 1,000 mcg PO DAILY 03/05/15 02/10/19 History Multivitamins, Thera [Multivitamin 1 tab PO DAILY 03/05/15 02/10/19 History (formulary)] Potassium 99 mg PO DAILY 03/05/15 02/10/19 History Atorvastatin [Lipitor] 20 mg PO HS 03/11/15 02/10/19 History Aspirin EC [Ecotrin Low Dose] 81 mg PO DAILY 02/10/19 02/10/19 History Cetirizine HCl [Zyrtec] 10 mg PO DAILY PRN 02/10/19 02/10/19 History Cholecalciferol [Vitamin D3 (25 1,000 unit PO DAILY 02/10/19 02/10/19 History Mcg = 1000 Iu)] Clopidogrel [Plavix] 75 mg PO DAILY 02/10/19 02/10/19 History Famotidine [Pepcid] 20 mg PO DAILY 02/10/19 02/10/19 History Felodipine [Felodipine ER] 10 mg PO DAILY 02/10/19 02/10/19 History Ferrous Sulfate [Feosol] 325 mg PO DAILY 02/10/19 02/10/19 History L.acidoph,Paracasei, B.lactis 1 cap PO DAILY 02/10/19 02/10/19 History [Probiotic] Linagliptin [Tradjenta] 5 mg PO DAILY 02/10/19 02/10/19 History amLODIPine [Norvasc] 5 mg PO DAILY 02/10/19 02/10/19 History Allergies Allergy/AdvReac Type Severity Reaction Status Date / Time articaine HCl Allergy Rash/Hives Verified 02/10/19 21:21 [From Septocaine] codeine Allergy Rash/Hives Verified 02/10/19 21:21 epinephrine [From Septocaine] Allergy Rash/Hives Verified 02/10/19 21:21 erythromycin base Allergy Rash/Hives Verified 02/10/19 21:21 Iodinated Contrast- Oral and Allergy Rash/Hives Verified 02/10/19 21:21 IV Dye [Iodinated Contrast Media - IV Dye] morphine Allergy Nausea & Verified 02/10/19 21:21 Vomiting phenazopyridine HCl Allergy Rash/Hives Verified 02/10/19 21:21 [From Pyridium] streptomycin Allergy Rash/Hives Verified 02/10/19 21:21 Sulfa (Sulfonamide Allergy Rash/Hives Verified 02/10/19 21:21 Antibiotics) Physical Exam Vitals: Vital Signs Temp Pulse Pulse Resp BP BP Pulse Ox 02/11/19 14:52 98.7 F 80 16 135/73 93 L 02/11/19 07:05 97.6 F 71 16 110/56 91 L 02/11/19 01:16 97.8 F 91 15 135/77 92 L 02/11/19 00:08 92 18 149/74 94 L 02/10/19 21:05 98.1 F 61 18 125/56 94 L Intake and Output 02/11/19 02/11/19 02/11/19 06:59 14:59 22:59 Other: Voiding Method Toilet # Voids 1 3 Results CBC & Chem 7: 02/11/19 11:42 02/10/19 22:31 Labs: Abnormal Lab Results - Last 24 Hours (Table) 02/10/19 02/10/19 02/11/19 Range/Units 22:31 22:31 11:42 WBC 18.3 H 13.7 H (3.8-10.6) k/uL RBC 3.51 L (3.80-5.40) m/uL Hgb 10.6 L (11.4-16.0) gm/dL Hct 33.4 L (34.0-46.0) % RDW 16.0 H 16.2 H (11.5-15.5) % Neutrophils # 15.1 H 10.6 H (1.3-7.7) k/uL BUN 47 H (7-17) mg/dL Creatinine 1.34 H (0.52-1.04) mg/dL Glucose 126 H (74-99) mg/dL Thrombosis Risk Factor Assmnt - Choose All That Apply Each Risk Factor Represents 3 Points: Age 75 years or older, History of DVT/PE Thrombosis Risk Factor Assessment Total Risk Factor Score: 6 Thrombosis Risk Factor Assessment Level: High Risk
[2019-02-11 16:40] LABS: Glucose,Whole Blood 96 mg/dL (75-99)
--- NOTE | 2019-02-11 17:44 | P.CRDCN ---
History of Present Illness Consult date: 02/11/19 History of present illness: This is a 84-year-old female with history of hypertension, hyperlipidemia who was recently evaluated by Dr. Lazarus Biggs. Apparently, patient was having some issues with her breathing. She was sent to see ent physician at [facility], and also a attenuator and meal attendant. She was told to have stage III renal failure. She apparently had a stress test and subsequently had a cardiac catheterization and stent placement of the left anterior descending coronary artery about a week ago. She was on aspirin and Plavix. Yesterday she noticed some bleeding in the nose and subsequently notices some blood in the mouth Also. She was concerned and came to the emergency room. She was seen by traffic court referee and also surgeon. They could not find any obvious source of bleeding. At this time is suggested that patient go back on aspirin and Plavix and continue monitoring her hemoglobin. If there is any further drop in hemoglo bin or any further evidence of bleeding, further evaluation with endoscopy will be considered. Patient denied any chest pain and apparently did not have any chest pain before the stent placement. Her white count is elevated. There is a slight drop in hemoglobin. No evidence of blood in the stool. Patient has a chronically dark stools from iron supplement. No complaints of abdominal pain Review of Systems As per the chart Past Medical History Past Medical History: Hyperlipidemia, Hypertension History of Any Multi-Drug Resistant Organisms: None Reported Past Surgical History: Appendectomy, Heart Catheterization With Stent Additional Past Surgical History / Comment(s): Rt foot hammer toe repair, breast biopsy, right leg surgery Past Anesthesia/Blood Transfusion Reactions: No Reported Reaction Date of Last Stent Placement:: na pt. dosnt remember Past Psychological History: No Psychological Hx Reported Smoking Status: Former smoker Past Alcohol Use History: None Reported Past Drug Use History: None Reported - Past Family History Mother Family Medical History: Diabetes Mellitus Medications and Allergies Home Medications Medication Instructions Recorded Confirmed Type Cyanocobalamin [Vitamin B-12] 1,000 mcg PO DAILY 03/05/15 02/10/19 History Multivitamins, Thera [Multivitamin 1 tab PO DAILY 03/05/15 02/10/19 History (formulary)] Potassium 99 mg PO DAILY 03/05/15 02/10/19 History Atorvastatin [Lipitor] 20 mg PO HS 03/11/15 02/10/19 History Aspirin EC [Ecotrin Low Dose] 81 mg PO DAILY 02/10/19 02/10/19 History Cetirizine HCl [Zyrtec] 10 mg PO DAILY PRN 02/10/19 02/10/19 History Cholecalciferol [Vitamin D3 (25 1,000 unit PO DAILY 02/10/19 02/10/19 History Mcg = 1000 Iu)] Clopidogrel [Plavix] 75 mg PO DAILY 02/10/19 02/10/19 History Famotidine [Pepcid] 20 mg PO DAILY 02/10/19 02/10/19 History Felodipine [Felodipine ER] 10 mg PO DAILY 02/10/19 02/10/19 History Ferrous Sulfate [Feosol] 325 mg PO DAILY 02/10/19 02/10/19 History L.acidoph,Paracasei, B.lactis 1 cap PO DAILY 02/10/19 02/10/19 History [Probiotic] Linagliptin [Tradjenta] 5 mg PO DAILY 02/10/19 02/10/19 History amLODIPine [Norvasc] 5 mg PO DAILY 02/10/19 02/10/19 History Allergies Allergy/AdvReac Type Severity Reaction Status Date / Time articaine HCl Allergy Rash/Hives Verified 02/10/19 21:21 [From Septocaine] codeine Allergy Rash/Hives Verified 02/10/19 21:21 epinephrine [From Septocaine] Allergy Rash/Hives Verified 02/10/19 21:21 erythromycin base Allergy Rash/Hives Verified 02/10/19 21:21 Iodinated Contrast- Oral and Allergy Rash/Hives Verified 02/10/19 21:21 IV Dye [Iodinated Contrast Media - IV Dye] morphine Allergy Nausea & Verified 02/10/19 21:21 Vomiting phenazopyridine HCl Allergy Rash/Hives Verified 02/10/19 21:21 [From Pyridium] streptomycin Allergy Rash/Hives Verified 02/10/19 21:21 Sulfa (Sulfonamide Allergy Rash/Hives Verified 02/10/19 21:21 Antibiotics) Physical Exam Vitals: Vital Signs Temp Pulse Pulse Resp BP BP Pulse Ox 02/11/19 14:52 98.7 F 80 16 135/73 93 L 02/11/19 07:05 97.6 F 71 16 110/56 91 L 02/11/19 01:16 97.8 F 91 15 135/77 92 L 02/11/19 00:08 92 18 149/74 94 L 02/10/19 21:05 98.1 F 61 18 125/56 94 L Intake and Output 02/11/19 02/11/19 02/11/19 06:59 14:59 22:59 Other: Voiding Method Toilet # Voids 1 3 GENERAL EXAM: Patient is alert and oriented and doesn't appear to be in any acute distress HEENT: Normocephalic. Normal reaction of pupils, equal size, normal range of extraocular motion. No erythema or exudates in the throat. NECK: No masses, no nuchal rigidity. CHEST: No chest wall deformity. LUNGS: Equal air entry with no crackles or wheeze. HEART: S1 and S2 normal with no audible mumurs or gallops. Regular rhythm, femorals equal on both sides.. ABDOMEN: No hepatosplenomegaly, normal bowel sounds, no guarding or rigidity. SKIN: No rashes CENTRAL NERVOUS SYSTEM: No focal deficits. EXTREMITIES: No cyanosis, clubbing or edema. Results 02/11/19 11:42 02/10/19 22:31 Cardiac Enzymes 02/10/19 Range/Units 22:31 AST 22 (14-36) U/L Coagulation 02/10/19 Range/Units 22:31 PT 10.9 (9.0-12.0) sec CBC 02/10/19 02/11/19 Range/Units 22:31 11:42 WBC 18.3 H 13.7 H (3.8-10.6) k/uL RBC 3.83 3.51 L (3.80-5.40) m/uL Hgb 11.5 10.6 L (11.4-16.0) gm/dL Hct 35.6 33.4 L (34.0-46.0) % Plt Count 343 309 (150-450) k/uL Comprehensive Metabolic Panel 02/10/19 Range/Units 22:31 Sodium 141 (137-145) mmol/L Potassium 3.8 (3.5-5.1) mmol/L Chloride 106 (98-107) mmol/L Carbon Dioxide 26 (22-30) mmol/L BUN 47 H (7-17) mg/dL Creatinine 1.34 H (0.52-1.04) mg/dL Glucose 126 H (74-99) mg/dL Calcium 10.1 (8.4-10.2) mg/dL AST 22 (14-36) U/L ALT 17 (9-52) U/L Alkaline Phosphatase 39 (38-126) U/L Total Protein 6.4 (6.3-8.2) g/dL Albumin 3.6 (3.5-5.0) g/dL Current Medications Generic Name Dose Route Start Last Admin Trade Name Freq PRN Reason Stop Dose Admin Amlodipine Besylate 10 mg 02/12/19 09:00 Norvasc PO DAILY [facility] Aspirin 81 mg 02/11/19 12:00 02/11/19 14:42 Aspirin PO 81 mg DAILY [facility] Administration Atorvastatin Calcium 20 mg 02/11/19 21:00 Lipitor PO HS [facility] Cholecalciferol 1,000 unit 02/12/19 09:00 Vitamin D3 (25 Mcg = 1000 Iu) PO DAILY [facility] Clopidogrel Bisulfate 75 mg 02/11/19 12:00 02/11/19 14:42 Plavix PO 75 mg DAILY [facility] Administration Cyanocobalamin 1,000 mcg 02/12/19 09:00 Vitamin B-12 PO DAILY [facility] Ferrous Sulfate 325 mg 02/11/19 12:00 02/11/19 14:41 Feosol PO 325 mg DAILY [facility] Administration Sodium Chloride 1,000 mls @ 100 mls/hr 02/10/19 23:15 02/11/19 09:30 Saline 0.9% IV 100 mls/hr .Q10H [facility] Administration Insulin Aspart 0 unit 02/11/19 12:30 02/11/19 17:17 Novolog SQ Not Given ACHS [facility] Protocol Lactobacillus Acidoph/Bulgaricus 1 each 02/12/19 09:00 Lactinex PO DAILY [facility] Linagliptin 5 mg 02/12/19 09:00 Tradjenta PO DAILY [facility] Loratadine 10 mg 02/11/19 12:37 Claritin PO DAILY PRN Allergy Symptoms Multivitamins 1 each 02/12/19 09:00 Theragran PO DAILY [facility] Naloxone HCl 0.2 mg 02/10/19 23:05 Narcan IV Q2M PRN Opioid Reversal Ondansetron HCl 4 mg 02/10/19 23:05 Zofran IVP Q8HR PRN Nausea And Vomiting Pantoprazole Sodium 40 mg 02/12/19 09:00 Protonix IV DAILY [facility] Potassium Chloride 10 meq 02/12/19 09:00 K-Dur 10 PO DAILY [facility] Intake and Output 02/11/19 02/11/19 02/11/19 06:59 14:59 22:59 Other: Voiding Method Toilet # Voids 1 3 02/11/19 11:42 02/10/19 22:31 EKG Interpretations (text) Sinus rhythm with first-degree heart block Assessment and Plan (1) Ischemic heart disease Current Visit: Yes Status: Acute Code(s): I25.9 - CHRONIC ISCHEMIC HEART DISEASE, UNSPECIFIED SNOMED Code(s): 968929069 (2) Anemia Current Visit: Yes Status: Acute Code(s): D64.9 - ANEMIA, UNSPECIFIED SNOMED Code(s): 729509437 (3) Mouth bleeding Current Visit: Yes Status: Acute Code(s): K13.79 - OTHER LESIONS OF ORAL MUCOSA SNOMED Code(s): 84165118 (4) History of intravascular stent placement Current Visit: Yes Status: Acute Code(s): Z95.828 - PRESENCE OF OTHER VASCULAR IMPLANTS AND GRAFTS SNOMED Code(s): 051023050 (5) Hx of heart artery stent Current Visit: Yes Status: Acute Code(s): Z95.5 - PRESENCE OF CORONARY ANGIOPLASTY IMPLANT AND GRAFT SNOMED Code(s): 773496083 (6) History of hypertension Current Visit: Yes Status: Acute Code(s): Z86.79 - PERSONAL HISTORY OF OTHER DISEASES OF THE CIRCULATORY SYSTEM SNOMED Code(s): 857788585 (7) Diabetes mellitus Current Visit: Yes Status: Acute Code(s): E11.9 - TYPE 2 DIABETES MELLITUS WITHOUT COMPLICATIONS SNOMED Code(s): 79029416 Plan: No obvious source of bleeding at this time. Patient is resumed on aspirin and Plavix. Continue monitoring for any further bleeding. Cardiac-joel, patient is stable without any chest pain or shortness of breath. We'll follow
--- NOTE | 2019-02-11 18:22 | P.PN ---
Progress Note - Text Progress Note Date: 02/11/19 Patient seen and evaluated. She reports recently being seen at [facility] for stent placement. She went to the bathroom today denies any hematemesis or blood in her stools earlier this afternoon including at the time of my assessment. I personally reviewed her abdominal x-ray which demonstrated no free air that is disconcordant with the radiologist's interpretation. I personally reviewed her computed tomography scan also demonstrated an umbilical hernia and she is asymptomatic. No surgical intervention. Patient is clear from a surgical standpoint for discharge when medically stable.
[2019-02-11] MEDS ORDERED: ACETAMINOPHEN TAB 325 MG TAB PO PRN (19:59)
[2019-02-11 20:53] LABS: Glucose,Whole Blood 97 mg/dL (75-99)
[2019-02-11] MEDS ORDERED: ATORVASTATIN 20 MG TAB PO SCH (21:00)
[2019-02-12] MEDS: SODIUM CHLORIDE 0.9% 1,000 ML IV SCH ×2 (00:16→10:02)
[2019-02-12 07:00] LABS: Glucose,Whole Blood 88 mg/dL (75-99)
[2019-02-12 07:20] LABS: Anisocytosis Slight; Basophils # (A) 0.1 k/uL (0-0.2); Basophils % (A) 1 %; Eosinophils # (A) 0.7 k/uL (0-0.7); Eosinophils % (A) 5 %; HCT 32.7 % (34.0-46.0); HGB 10.5 gm/dL (11.4-16.0); Hypochromasia Slight; Lymphocytes # (A) 1.9 k/uL (1.0-4.8); Lymphocytes % (A) 14 %; MCH 30.6 pg (25.0-35.0); MCHC 32.2 g/dL (31.0-37.0); MCV 95.1 fL (80.0-100.0); Mean Platelet Volume 7.9; Monocytes # (A) 0.6 k/uL (0-1.0); Monocytes % (A) 4 %; Neutrophils # (A) 10.4 k/uL (1.3-7.7); Neutrophils % (A) 75 %; Platelet Count 292 k/uL (150-450); RBC 3.44 m/uL (3.80-5.40); RDW 16.4 % (11.5-15.5); WBC 13.8 k/uL (3.8-10.6)
[2019-02-12 08:23] VITALS: BP 132/73; PULSE 75; RESP 18; TEMP 97.6
--- NOTE | 2019-02-12 08:41 | P.PN ---
Subjective Progress Note Date: 02/12/19 Principal diagnosis: GI bleed evaluation No active bleeding. Feels well. Hungry. Hgb 10.[address] CAP negative for free air. Objective - Vital Signs Vital signs: Vital Signs Temp 97.6 F 02/12/19 07:27 Pulse 75 02/12/19 07:27 Resp 18 02/12/19 07:27 BP 132/73 02/12/19 07:27 Pulse Ox 92 L 02/12/19 07:27 Intake & Output 02/11/19 02/12/19 02/12/19 18:59 06:59 18:59 Intake Total 1150 Balance 1150 Intake: Intake, IV Titration 1150 Amount Sodium Chloride 0.9% 1, 1150 000 ml @ 100 mls/hr IV . Q10H [facility] Rx#:[id number] Other: Voiding Method Toilet Toilet # Voids 3 1 - Exam General appearance: The patient is alert, oriented, in no acute distress. HET: Head is normocephalic and atraumatic. Pupils are equal and reactive. Oropharynx is clear without lesions. Neck: Supple without lymphadenopathy. Trachea midline. Heart: S1 S2. Regular rate and rhythm. Lungs: No crackles or wheezes are heard. Abdomen: Soft, nontender, nondistended with bowel sounds. No peritoneal signs. No palpable organomegaly or masses. Extremities: Normal skin color and turgor. No cyanosis, rash, ulceration, clubbing, or edema. Radial and pedal pulses are 2/4 bilaterally. Neurological: No focal deficits. Strength and sensation are grossly intact. - Labs CBC & Chem 7: 02/12/19 06:58 02/10/19 22:31 Labs: Abnormal Lab Results - Last 24 Hours (Table) 02/11/19 02/12/19 Range/Units 11:42 06:58 WBC 13.7 H 13.8 H (3.8-10.6) k/uL RBC 3.51 L 3.44 L (3.80-5.40) m/uL Hgb 10.6 L 10.5 L (11.4-16.0) gm/dL Hct 33.4 L 32.7 L (34.0-46.0) % RDW 16.2 H 16.4 H (11.5-15.5) % Neutrophils # 10.6 H 10.4 H (1.3-7.7) k/uL Assessment and Plan (1) Anemia Narrative/Plan: 84-year-old female history of underlying iron deficiency anemia recent heart catheterization placement of drug eluting stent LAD 6 days ago at outside [facility] maintained on dual antiplatelet therapy presents with an isolated episode of oral bleeding and nosebleed unclear source with suspected component of acute blood loss. Clinically she has a benign abdomen without overt symptoms of an acute GI bleed however an underlying occult upper GI bleed cannot be excluded with elevated BUN and episode of oral bleeding. Patient vehemently denies abdominal pain, hematemesis, hematochezia or melena. Chest abdominal x-rays on admission could not exclude pneumoperitoneum follow-up CT chest abdomen and pelvis negative for free air. Current Visit: Yes Status: Acute Code(s): D64.9 - ANEMIA, UNSPECIFIED SNOMED Code(s): 054880278 (2) Elevated BUN Current Visit: Yes Status: Acute Code(s): R79.9 - ABNORMAL FINDING OF BLOOD CHEMISTRY, UNSPECIFIED SNOMED Code(s): 797738726 (3) S/P cardiac cath Current Visit: Yes Status: Acute Code(s): Z98.890 - OTHER SPECIFIED POSTPROCEDURAL STATES SNOMED Code(s): 40215682601850 (4) Hx of heart artery stent Current Visit: Yes Status: Acute Code(s): Z95.5 - PRESENCE OF CORONARY ANGIOPLASTY IMPLANT AND GRAFT SNOMED Code(s): 861483697 Plan: 1. General surgical evaluation appreciated. CT chest abdomen and pelvis ne gative for free air. Clinically no active bleeding. Hemoglobin is stable. Will allow cardiac diet and observe. Inpatient endoscopic exams not planned at this time. Continue GI prophylaxis aspirin and Plavix secondary to recent cardiac stent placement. Assessment and plan a care discussed with Dr. Mora
[2019-02-12] MEDS ORDERED: amLODIPine 5 MG TAB PO SCH (09:00)
[2019-02-12] MEDS ORDERED: amLODIPine 10 MG TAB PO SCH (09:00)
[2019-02-12] MEDS ORDERED: LACTOBACILLUS ACIDOPH & BULGAR 1 EACH PACKET PO SCH (09:00)
[2019-02-12] MEDS ORDERED: CYANOCOBALAMIN 500 MCG TAB PO SCH (09:00)
[2019-02-12] MEDS ORDERED: MULTIVITAMINS, THERA 1 EACH TAB PO SCH (09:00)
[2019-02-12] MEDS ORDERED: LINAGLIPTIN 5 MG TABLET PO SCH (09:00)
[2019-02-12] MEDS ORDERED: POTASSIUM CHLORIDE ER 10 MEQ TAB.ER.PRT PO SCH (09:00)
[2019-02-12] MEDS ORDERED: CHOLECALCIFEROL 1,000 UNIT TAB PO SCH (09:00)
[2019-02-12] MEDS ORDERED: PANTOPRAZOLE 40 MG/10 ML VIAL IV SCH (09:00)
[2019-02-12] MEDS: INSULIN ASPART (NovoLOG) 100 UNIT/ML VIAL SQ SCH ×2 (10:00→12:47)
[2019-02-12] MEDS: CLOPIDOGREL 75 MG TAB PO SCH (10:06)
[2019-02-12] MEDS: ASPIRIN 81 MG PO SCH (10:07)
[2019-02-12] MEDS: FERROUS SULFATE 325 MG TAB PO SCH (10:07)
--- NOTE | 2019-02-12 11:49 | P.PN ---
Subjective Progress Note Date: 02/12/19 This 84-year-old female was admitted with blood from nose and mouth and suspected bleeding. Since admission, no bleeding is observed. Seen by gastroenterology and surgical services. They recommended that patient be restarted on aspirin and Plavix. She hasn't had any recurrence of bleeding. Denies any chest pain or shortness of breath. Patient is being discharged home Objective - Vital Signs Vital signs: Vital Signs Temp 97.6 F 02/12/19 07:27 Pulse 75 02/12/19 07:27 Resp 18 02/12/19 07:27 BP 132/73 02/12/19 07:27 Pulse Ox 92 L 02/12/19 07:27 Intake & Output 02/11/19 02/12/19 02/12/19 18:59 06:59 18:59 Intake Total 1150 Balance 1150 Intake: Intake, IV Titration 1150 Amount Sodium Chloride 0.9% 1, 1150 000 ml @ 100 mls/hr IV . Q10H [facility] Rx#:[id number] Other: Voiding Method Toilet Toilet # Voids 3 1 - Exam GENERAL EXAM: Patient is alert and oriented and doesn't appear to be in any acute distress HEENT: Normocephalic. Normal reaction of pupils, equal size, normal range of extraocular motion. No erythema or exudates in the throat. NECK: No masses, no nuchal rigidity. CHEST: No chest wall deformity. LUNGS: Equal air entry with no crackles or wheeze. HEART: S1 and S2 normal with no audible mumurs or gallops. Regular rhythm, femorals equal on both sides.. ABDOMEN: No hepatosplenomegaly, normal bowel sounds, no guarding or rigidity. SKIN: No rashes CENTRAL NERVOUS SYSTEM: No focal deficits. EXTREMITIES: No cyanosis, clubbing or edema. - Labs CBC & Chem 7: 02/12/19 06:58 02/10/19 22:31 Labs: Abnormal Lab Results - Last 24 Hours (Table) 02/11/19 02/12/19 Range/Units 11:42 06:58 WBC 13.7 H 13.8 H (3.8-10.6) k/uL RBC 3.51 L 3.44 L (3.80-5.40) m/uL Hgb 10.6 L 10.5 L (11.4-16.0) gm/dL Hct 33.4 L 32.7 L (34.0-46.0) % RDW 16.2 H 16.4 H (11.5-15.5) % Neutrophils # 10.6 H 10.4 H (1.3-7.7) k/uL Assessment and Plan (1) Ischemic heart disease Current Visit: Yes Status: Acute Code(s): I25.9 - CHRONIC ISCHEMIC HEART DISEASE, UNSPECIFIED SNOMED Code(s): 126846663 (2) Anemia Current Visit: Yes Status: Acute Code(s): D64.9 - ANEMIA, UNSPECIFIED SNOMED Code(s): 499154995 (3) Mouth bleeding Current Visit: Yes Status: Acute Code(s): K13.79 - OTHER LESIONS OF ORAL MUCOSA SNOMED Code(s): 27450274 (4) History of intravascular stent placement Current Visit: Yes Status: Acute Code(s): Z95.828 - PRESENCE OF OTHER VASCULAR IMPLANTS AND GRAFTS SNOMED Code(s): 331579876 (5) Hx of heart artery stent Current Visit: Yes Status: Acute Code(s): Z95.5 - PRESENCE OF CORONARY ANGIOPLASTY IMPLANT AND GRAFT SNOMED Code(s): 809477310 (6) History of hypertension Current Visit: Yes Status: Acute Code(s): Z86.79 - PERSONAL HISTORY OF OTHER DISEASES OF THE CIRCULATORY SYSTEM SNOMED Code(s): 692748736 (7) Diabetes mellitus Current Visit: Yes Status: Acute Code(s): E11.9 - TYPE 2 DIABETES MELLITUS WITHOUT COMPLICATIONS SNOMED Code(s): 46870885 Plan: Patient is critically stable. Her hemoglobin is about 10.5. No further drop. No complaints of any chest pain or shortness of breath. Back on aspirin and Plavix. He discharged home today. 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
--- NOTE | 2019-02-12 12:05 | P.PN ---
<Sharri Gamboa Jesse - Last Filed: 02/12/19 12:03> Subjective Progress Note Date: 02/12/19 CHIEF COMPLAINT: possible free air HISTORY OF PRESENT ILLNESS: patient seen and examined this morning. She is sitting in the chair. Patient denies any further episodes of bleeding. Denies abdominal pain. Denies nausea or vomiting. Tolerating diet. Patient is hoping to be discharged home today. PHYSICAL EXAM: VITAL SIGNS: Currently stable. GENERAL: Well-developed in no acute distress. HEENT: No sclera icterus. Extraocular movements grossly intact. Moist buccal mucosa. Head is atraumatic, normocephalic. Hears conversational speech. No nasal drainage. NECK: Supple without lymphadenopathy. CHEST: Non-labored respirations and equal bilateral excursions. CARDIOVASCULAR: Regular rate with regular rhythm. Palpable 2+ radial pulses. ABDOMEN: Obese. Soft. Nondistended. Nontender. Positive bowel sounds. Ecchymosis to left lower quadrant and right lower quadrant. No signs of peritonitis. MUSCULOSKELETAL: No clubbing, cyanosis or edema. NEUROLOGIC: No focal or lateralizing signs. Cranial nerves II through XII grossly intact. PSYCH: Appropriate affect. Alert and oriented to person, place and time. SKIN: Well perfused. Good skin turgor. ASSESSMENT: 1. Episode of bleeding from oral cavity and nosebleed, resolved 2. Pneumoperitoneum, ruled out 3. Coronary artery disease with recent stent placement, started on aspirin and plavix 4. History of iron deficiency anemia with possible component of acute blood loss anemia PLAN: Continue current diet Continue aspirin and Plavix No surgical intervention recommended. Patient is stable for discharge from a surgical standpoint. We will sign off. please reconsult if needed. Nurse practitioner note has been reviewed by physician. Signing provider agrees with the documented findings, assessment, and plan of care. Objective - Vital Signs Vital signs: Vital Signs Temp 97.6 F 02/12/19 07:27 Pulse 75 02/12/19 07:27 Resp 18 02/12/19 07:27 BP 132/73 02/12/19 07:27 Pulse Ox 92 L 02/12/19 07:27 Intake & Output 02/11/19 02/12/19 02/12/19 18:59 06:59 18:59 Intake Total 1150 Balance 1150 Intake: Intake, IV Titration 1150 Amount Sodium Chloride 0.9% 1, 1150 000 ml @ 100 mls/hr IV . Q10H [facility] Rx#:[id number] Other: Voiding Method Toilet Toilet # Voids 3 1 - Labs CBC & Chem 7: 02/12/19 06:58 02/10/19 22:31 Labs: Abnormal Lab Results - Last 24 Hours (Table) 02/12/19 Range/Units 06:58 WBC 13.8 H (3.8-10.6) k/uL RBC 3.44 L (3.80-5.40) m/uL Hgb 10.5 L (11.4-16.0) gm/dL Hct 32.7 L (34.0-46.0) % RDW 16.4 H (11.5-15.5) % Neutrophils # 10.4 H (1.3-7.7) k/uL Assessment and Plan (1) Mouth bleeding Current Visit: Yes Status: Acute Code(s): K13.79 - OTHER LESIONS OF ORAL MUCOSA SNOMED Code(s): 26249461 (2) Hx of heart artery stent Current Visit: Yes Status: Acute Code(s): Z95.5 - PRESENCE OF CORONARY ANGIOPLASTY IMPLANT AND GRAFT SNOMED Code(s): 691810589 (3) S/P cardiac cath Current Visit: Yes Status: Acute Code(s): Z98.890 - OTHER SPECIFIED POSTPROCEDURAL STATES SNOMED Code(s): 47487031458692 <Kati Ames N - Last Filed: 02/12/19 15:16> Subjective Agree with discharge. Objective - Vital Signs Vital signs: Vital Signs Temp 97.6 F 02/12/19 07:27 Pulse 75 02/12/19 07:27 Resp 18 02/12/19 07:27 BP 132/73 02/12/19 07:27 Pulse Ox 92 L 02/12/19 07:27 Intake & Output 02/11/19 02/12/19 02/12/19 18:59 06:59 18:59 Intake Total 1150 300 Balance 1150 300 Intake: Intake, IV Titration 1150 Amount Sodium Chloride 0.9% 1, 1150 000 ml @ 100 mls/hr IV . Q10H [facility] Rx#:[id number] Oral 300 Other: Voiding Method Toilet Toilet # Voids 3 1 - Labs CBC & Chem 7: 02/12/19 06:58 02/10/19 22:31 Labs: Abnormal Lab Results - Last 24 Hours (Table) 02/12/19 02/12/19 Range/Units 06:58 12:02 WBC 13.8 H (3.8-10.6) k/uL RBC 3.44 L (3.80-5.40) m/uL Hgb 10.5 L (11.4-16.0) gm/dL Hct 32.7 L (34.0-46.0) % RDW 16.4 H (11.5-15.5) % Neutrophils # 10.4 H (1.3-7.7) k/uL POC Glucose (mg/dL) 118 H (75-99) mg/dL
[2019-02-12 12:13] LABS: Glucose,Whole Blood 118 mg/dL (75-99)
[2019-02-12 14:35] LABS: Hemoglobin A1C 5.8 % (4.0-6.0)
--- NOTE | 2019-02-12 22:35 | P.DS ---
Providers Date of admission: 02/10/19 23:07 Expected date of discharge: 02/12/19 Attending physician: Diallo Cerda Consults: 02/11/19 12:24 Consult Physician Stat Consulting Provider: Kati Ames Consult Reason/Comments: possible free air Do you want consulting provider notified?: Yes 02/11/19 14:15 Consult Physician Routine Consulting Provider: Nacho Atwood Consult Reason/Comments: stent placement last week, bleeding Do you want consulting provider notified?: Yes Primary care physician: Josh Llanos [facility] Course: History of presenting complaint: This is a very pleasant 84-year-old patient of Dr. Dr. Josh Llanos. Chronic stable medical conditions include hypertension, hyperlipidemia, coronary artery disease with stent. Patient had a stent placed about a week ago at an outside hospital. Patient is on aspirin and Plavix. Patient noticed yesterday when she opened her mouth blood was coming out. She is unable to tell me if she coughed it up or she vomited. She stated that she simply opened about the blood came out. It happened a few occasions. No abdominal pain. No tongue biting. No history of peptic ulcer disease. Patient does feel a bit tired. Admitted for the same. GI was consulted. His possible the bleeding was from the oral cavity. It was not felt to be from the lung or upper GI. No further episodes. Patient medically to go home. Hemodynamically stable. Cleared by all the services to go home. Consultation: Dr. Ferrell from surgery Dr. María Mora from GI Dr. Alvarez from cardiology Physical examination: VITAL SIGNS: r 97.6, 75, 18, 132/73, 92% room air GENERAL: BMI 37.9, sitting up in a chair, comfortable. EYES: Pupils equal. Conjunctiva normal. HEENT: External appearance of nose and ears normal, oral cavity grossly normal. NECK: JVD not raised; masses not palpable. HEART: First and second heart sounds are normal; no edema. LUNGS: Respiratory rate normal; clear to auscultation. ABDOMEN: Soft, nontender, liver spleen not palpable, no masses palpable. PSYCH: Alert and oriented x3; mood and affect normal. Investigations, reviewed and the clinical context: Hemoglobin 10.5 Assessment: -This is a patient who is on aspirin and Plavix states that she presented with bleeding through the oral cavity. Possible bleeding from the oral cavity -Obesity BMI 37.9 -Hyperlipidemia -Essential hypertension -Coronary artery disease with a stent placed a week ago -Primary osteoarthritis of the hands and knees( Disposition: Home Patient Condition at Discharge: Stable Plan - Discharge Summary Discharge Rx Participant: No New Discharge Prescriptions: New Famotidine [Pepcid] 20 mg PO BID #60 tablet Continue Cyanocobalamin [Vitamin B-12] 1,000 mcg PO DAILY Multivitamins, Thera [Multivitamin (formulary)] 1 tab PO DAILY Potassium 99 mg PO DAILY Atorvastatin [Lipitor] 20 mg PO HS Linagliptin [Tradjenta] 5 mg PO DAILY L.acidoph,Paracasei, B.lactis [Probiotic] 1 cap PO DAILY Ferrous Sulfate [Iron (65 MG Elemental)] 325 mg PO DAILY Cholecalciferol [Vitamin D3 (25 Mcg = 1000 Iu)] 1,000 unit PO DAILY Cetirizine HCl [Zyrtec] 10 mg PO DAILY PRN PRN Reason: Allergy Symptoms Aspirin EC [Ecotrin Low Dose] 81 mg PO DAILY Felodipine [Felodipine ER] 10 mg PO DAILY Famotidine [Pepcid] 20 mg PO DAILY Clopidogrel [Plavix] 75 mg PO DAILY Discontinued amLODIPine [Norvasc] 5 mg PO DAILY Discharge Medication List Cyanocobalamin [Vitamin B-12] 1,000 mcg PO DAILY 03/05/15 [History] Multivitamins, Thera [Multivitamin (formulary)] 1 tab PO DAILY 03/05/15 [History] Potassium 99 mg PO DAILY 03/05/15 [History] Atorvastatin [Lipitor] 20 mg PO HS 03/11/15 [History] Aspirin EC [Ecotrin Low Dose] 81 mg PO DAILY 02/10/19 [History] Cetirizine HCl [Zyrtec] 10 mg PO DAILY PRN 02/10/19 [History] Cholecalciferol [Vitamin D3 (25 Mcg = 1000 Iu)] 1,000 unit PO DAILY 02/10/19 [History] Clopidogrel [Plavix] 75 mg PO DAILY 02/10/19 [History] Famotidine [Pepcid] 20 mg PO DAILY 02/10/19 [History] Felodipine [Felodipine ER] 10 mg PO DAILY 02/10/19 [History] Ferrous Sulfate [Iron (65 MG Elemental)] 325 mg PO DAILY 02/10/19 [History] L.acidoph,Paracasei, B.lactis [Probiotic] 1 cap PO DAILY 02/10/19 [History] Linagliptin [Tradjenta] 5 mg PO DAILY 02/10/19 [History] Famotidine [Pepcid] 20 mg PO BID #60 tablet 02/12/19 [Rx] Follow up Appointment(s)/Referral(s): Josh Llanos MD [Primary Care Provider] - 02/16/19 2:15 pm Kati Ames MD [STAFF PHYSICIAN] - As Needed (NO FOLLOW UP NEEDED. ) Angelica Mora MD [STAFF PHYSICIAN] - 04/01/19 1:45 pm Ambulatory/Diagnostic Orders: Complete Blood Count w/diff [LAB.AMB] Time Frame: 02/16/19, Location: None Selected Patient Instructions/Handouts: Hematemesis (GEN) Discharge Disposition: HOME SELF-CARE
[2019-02-13] MEDS ORDERED: PANTOPRAZOLE 40 MG TABLET PO SCH (07:30)
== END 2019-02-12 15:57 | disposition home or self-care (01) ==
LOC: EC 20:53 → 4SSUR 23:07
PROVIDERS: ADMIT Hospitalist; ATTEND Hospitalist
DX: R58 Hemorrhage, not elsewhere classified (principal); I25.10 Atherosclerotic heart disease of native coronary artery without angina pectoris; I12.9 Hypertensive chronic kidney disease with stage 1 through stage 4 chronic kidney disease, or unspecified chronic kidney disease; N18.3 Chronic kidney disease, stage 3 (moderate); E78.5 Hyperlipidemia, unspecified; E11.9 Type 2 diabetes mellitus without complications; D64.9 Anemia, unspecified; R79.89 Other specified abnormal findings of blood chemistry; D50.9 Iron deficiency anemia, unspecified; K57.30 Diverticulosis of large intestine without perforation or abscess without bleeding; E66.9 Obesity, unspecified; Z68.37 Body mass index [BMI] 37.0-37.9, adult; K42.9 Umbilical hernia without obstruction or gangrene; M17.0 Bilateral primary osteoarthritis of knee; M19.042 Primary osteoarthritis, left hand; M19.041 Primary osteoarthritis, right hand; D72.829 Elevated white blood cell count, unspecified; Z79.82 Long term (current) use of aspirin; Z79.02 Long term (current) use of antithrombotics/antiplatelets; Z79.84 Long term (current) use of oral hypoglycemic drugs; Z79.899 Other long term (current) drug therapy; Z88.5 Allergy status to narcotic agent; Z88.2 Allergy status to sulfonamides; Z88.4 Allergy status to anesthetic agent; Z88.1 Allergy status to other antibiotic agents; Z91.041 Radiographic dye allergy status; Z88.8 Allergy status to other drugs, medicaments and biological substances; Z90.49 Acquired absence of other specified parts of digestive tract; Z87.891 Personal history of nicotine dependence; Z87.09 Personal history of other diseases of the respiratory system; Z95.5 Presence of coronary angioplasty implant and graft; Z83.3 Family history of diabetes mellitus
CPT/HCPCS: 96376 ×2; 96361; 96374; 99285; 36415; 93005; 86900; 86901; 80053; 85025 ×3; 85610; 86850; 83036; 74022; 71250; 74176; G0378 ×3; C9113 ×3

== ENCOUNTER 2019-03-10 18:06 | Inpatient (IN) | payer MEDICARE ==
--- NOTE | 2019-03-10 19:01 | ED ---
General Adult HPI - General Chief complaint: Shortness of Breath Stated complaint: TIRED FOLLOWING STENT PUT IN FEBRUARY Time Seen by Provider: 03/10/19 18:23 Source: patient, family, RN notes reviewed Mode of arrival: wheelchair Limitations: no limitations - History of Present Illness Initial comments: Patient is a pleasant 84-year-old female presenting to the emergency department fatigue. Symptoms have progressed over the past one month. Patient did have heart catheterization with stent placement a month ago. Symptoms have progressively worsened since that time. Patient has dyspnea with exertion. No dyspnea at rest. Patient gets very dyspneic and fatigued with walking short distances, even 10 feet. Patient does have some occasional chest tightness. No leg pain or leg swelling. No fevers. No cough. - Related Data Home Medications Medication Instructions Recorded Confirmed Cyanocobalamin [Vitamin B-12] 1,000 mcg PO DAILY 03/05/15 03/10/19 Multivitamins, Thera [Multivitamin 1 tab PO DAILY 03/05/15 03/10/19 (formulary)] Potassium 99 mg PO DAILY 03/05/15 03/10/19 Atorvastatin [Lipitor] 20 mg PO HS 03/11/15 03/10/19 Aspirin EC [Ecotrin Low Dose] 81 mg PO DAILY 02/10/19 03/10/19 Cetirizine HCl [Zyrtec] 10 mg PO DAILY PRN 02/10/19 03/10/19 Cholecalciferol [Vitamin D3 (25 2,000 unit PO DAILY 02/10/19 03/10/19 Mcg = 1000 Iu)] Clopidogrel [Plavix] 75 mg PO DAILY 02/10/19 03/10/19 Famotidine [Pepcid] 20 mg PO DAILY 02/10/19 03/10/19 Ferrous Sulfate [Iron (65 MG 325 mg PO DAILY 02/10/19 03/10/19 Elemental)] L.acidoph,Paracasei, B.lactis 1 cap PO DAILY 02/10/19 03/10/19 [Probiotic] Linagliptin [Tradjenta] 5 mg PO DAILY 02/10/19 03/10/19 Allopurinol [Zyloprim] 100 mg PO DAILY 03/10/19 03/10/19 amLODIPine [Norvasc] 5 mg PO DAILY 03/10/19 03/10/19 Allergies Allergy/AdvReac Type Severity Reaction Status Date / Time articaine HCl Allergy Rash/Hives Verified 03/10/19 19:26 [From Septocaine] codeine Allergy Rash/Hives Verified 03/10/19 19:26 epinephrine [From Septocaine] Allergy Rash/Hives Verified 03/10/19 19:26 erythromycin base Allergy Rash/Hives Verified 03/10/19 19:26 Iodinated Contrast- Oral and Allergy Rash/Hives Verified 03/10/19 19:26 IV Dye [Iodinated Contrast Media - IV Dye] morphine Allergy Nausea & Verified 03/10/19 19:26 Vomiting phenazopyridine HCl Allergy Rash/Hives Verified 03/10/19 19:26 [From Pyridium] streptomycin Allergy Rash/Hives Verified 03/10/19 19:26 Sulfa (Sulfonamide Allergy Rash/Hives Verified 03/10/19 19:26 Antibiotics) Review of Systems ROS Statement: Those systems with pertinent positive or pertinent negative responses have been documented in the HPI. ROS Other: All systems not noted in ROS Statement are negative. Constitutional: Denies: fever Eyes: Denies: eye pain ENT: Denies: ear pain Respiratory: Reports: as per HPI Cardiovascular: Reports: as per HPI Endocrine: Reports: fatigue Gastrointestinal: Denies: abdominal pain Genitourinary: Denies: dysuria Musculoskeletal: Denies: back pain Skin: Denies: rash Neurological: Denies: headache, confusion Past Medical History Past Medical History: Diabetes Mellitus, Hyperlipidemia Additional Past Medical History / Comment(s): gout History of Any Multi-Drug Resistant Organisms: None Reported Past Surgical History: Appendectomy, Heart Catheterization With Stent Additional Past Surgical History / Comment(s): Rt foot hammer toe repair, breast biopsy, right leg surgery Past Anesthesia/Blood Transfusion Reactions: No Reported Reaction Date of Last Stent Placement:: na pt. dosnt remember Past Psychological History: No Psychological Hx Reported Smoking Status: Former smoker Past Alcohol Use History: None Reported Past Drug Use History: None Reported - Past Family History Mother Family Medical History: Diabetes Mellitus General Exam Limitations: no limitations General appearance: alert, in no apparent distress Head exam: Present: atraumatic Eye exam: Present: normal appearance, PERRL ENT exam: Present: normal oropharynx Neck exam: Present: normal inspection Respiratory exam: Present: normal lung sounds bilaterally Cardiovascular Exam: Present: regular rate, normal rhythm GI/Abdominal exam: Present: soft. Absent: tenderness Extremities exam: Present: normal inspection. Absent: pedal edema, calf tenderness Neurological exam: Present: alert Psychiatric exam: Present: normal affect, normal mood Skin exam: Present: normal color Course Vital Signs 03/10/19 18:11 Temperature 97.9 F Pulse Rate 101 H Respiratory 26 H Rate Blood Pressure 135/72 O2 Sat by Pulse 91 L Oximetry EKG Findings - EKG Comments: EKG Findings:: Sinus rhythm and 99. For screening AV block ID 220. QRS 70. QT 372. QTC 477. Normal axis. Normal QRS. No acute ST change. Medical Decision Making - Medical Decision Making Patient reevaluated and resting comfortably in bed. Patient and family updated on results and plan. Case was discussed in detail with Dr. Rangel who does request VQ scan on Lovenox. Consults will also be placed with cardiology and pu lmonary. - Lab Data Result diagrams: 03/10/19 18:30 03/10/19 18:30 Lab Results 03/10/19 03/10/19 03/10/19 Range/Units 18:30 18:30 18:30 WBC 9.0 (3.8-10.6) k/uL RBC 2.98 L (3.80-5.40) m/uL Hgb 8.9 L D (11.4-16.0) gm/dL Hct 29.8 L (34.0-46.0) % MCV 99.8 (80.0-100.0) fL MCH 30.0 (25.0-35.0) pg MCHC 30.1 L (31.0-37.0) g/dL RDW 17.8 H (11.5-15.5) % Plt Count 399 (150-450) k/uL Neutrophils % 72 % Lymphocytes % 15 % Monocytes % 8 % Eosinophils % 2 % Basophils % 0 % Neutrophils # 6.5 (1.3-7.7) k/uL Lymphocytes # 1.4 (1.0-4.8) k/uL Monocytes # 0.7 (0-1.0) k/uL Eosinophils # 0.2 (0-0.7) k/uL Basophils # 0.0 (0-0.2) k/uL Hypochromasia Marked Poikilocytosis Slight Anisocytosis Slight Macrocytosis Slight PT 10.6 (9.0-12.0) sec INR 1.0 (<1.2) APTT 20.4 L (22.0-30.0) sec D-Dimer 0.71 H (<0.60) mg/L FEU Sodium 140 (137-145) mmol/L Potassium 4.0 (3.5-5.1) mmol/L Chloride 108 H (98-107) mmol/L Carbon Dioxide 21 L (22-30) mmol/L Anion Gap 11 mmol/L BUN 35 H (7-17) mg/dL Creatinine 1.39 H (0.52-1.04) mg/dL Est GFR (CKD-EPI)AfAm 40 (>60 ml/min/1.73 sqM) Est GFR (CKD-EPI)NonAf 35 (>60 ml/min/1.73 sqM) Glucose 167 H (74-99) mg/dL Calcium 9.2 (8.4-10.2) mg/dL Total Bilirubin 0.3 (0.2-1.3) mg/dL AST 23 (14-36) U/L ALT 13 (9-52) U/L Alkaline Phosphatase 47 (38-126) U/L Troponin I (0.000-0.034) ng/mL NT-Pro-B Natriuret Pep pg/mL Total Protein 6.3 (6.3-8.2) g/dL Albumin 3.3 L (3.5-5.0) g/dL 03/10/19 03/10/19 Range/Units 18:30 18:30 WBC (3.8-10.6) k/uL RBC (3.80-5.40) m/uL Hgb (11.4-16.0) gm/dL Hct (34.0-46.0) % MCV (80.0-100.0) fL MCH (25.0-35.0) pg MCHC (31.0-37.0) g/dL RDW (11.5-15.5) % Plt Count (150-450) k/uL Neutrophils % % Lymphocytes % % Monocytes % % Eosinophils % % Basophils % % Neutrophils # (1.3-7.7) k/uL Lymphocytes # (1.0-4.8) k/uL Monocytes # (0-1.0) k/uL Eosinophils # (0-0.7) k/uL Basophils # (0-0.2) k/uL Hypochromasia Poikilocytosis Anisocytosis Macrocytosis PT (9.0-12.0) sec INR (<1.2) APTT (22.0-30.0) sec D-Dimer (<0.60) mg/L FEU Sodium (137-145) mmol/L Potassium (3.5-5.1) mmol/L Chloride (98-107) mmol/L Carbon Dioxide (22-30) mmol/L Anion Gap mmol/L BUN (7-17) mg/dL Creatinine (0.52-1.04) mg/dL Est GFR (CKD-EPI)AfAm (>60 ml/min/1.73 sqM) Est GFR (CKD-EPI)NonAf (>60 ml/min/1.73 sqM) Glucose (74-99) mg/dL Calcium (8.4-10.2) mg/dL Total Bilirubin (0.2-1.3) mg/dL AST (14-36) U/L ALT (9-52) U/L Alkaline Phosphatase (38-126) U/L Troponin I <0.012 (0.000-0.034) ng/mL NT-Pro-B Natriuret Pep 679 pg/mL Total Protein (6.3-8.2) g/dL Albumin (3.5-5.0) g/dL - Radiology Data Radiology results: image reviewed (Chest x-ray shows diffuse interstitial changes) Disposition Clinical Impression: Dyspnea, Fatigue Disposition: ADMITTED IP TO THIS HOSP Is patient prescribed a controlled substance at d/c from ED?: No Referrals: Josh Llanos MD [Primary Care Provider] - 1-2 days Decision Time: 21:02
--- NOTE | 2019-03-10 19:47 | XR ---
EXAMINATION: XR chest 2V DATE AND TIME: 03/10/2019 7:17 PM CLINICAL INDICATION: PHH; difficulty breathing TECHNIQUE: Departmental protocol COMPARISON: 03/06/2015 FINDINGS: There is a bilateral groundglass and consolidative opacity pattern throughout the bilateral lungs, gr eater on the right. The pattern suggests multifocal pneumonia if clinically supported, although asymm etric pulmonary edema would be within the differential diagnosis. There is no pneumothorax or other abnormal gas collections. Suspect small bilateral pleural effusions. The cardiac silhouette is moderately enlarged. The remainder of the mediastinal silhouette is unremar kable. The skeletal structures and soft tissues are negative for acute findings. IMPRESSION: Diffuse lung parenchymal processes, greater on the right.
[2019-03-10 19:58] LABS: Albumin 3.3 g/dL (3.5-5.0); Calcium 9.2 mg/dL (8.4-10.2); Total Bilirubin 0.3 mg/dL (0.2-1.3); Total Protein 6.3 g/dL (6.3-8.2)
[2019-03-10 20:01] LABS: Anisocytosis Slight; Basophils % (A) 0 %; Eosinophils # (A) 0.2 k/uL (0-0.7); Eosinophils % (A) 2 %; HCT 29.8 % (34.0-46.0); Hypochromasia Marked; Lymphocytes # (A) 1.4 k/uL (1.0-4.8); Lymphocytes % (A) 15 %; MCHC 30.1 g/dL (31.0-37.0); MCV 99.8 fL (80.0-100.0); Macrocytosis Slight; Mean Platelet Volume 7.1; Monocytes # (A) 0.7 k/uL (0-1.0); Monocytes % (A) 8 %; Neutrophils # (A) 6.5 k/uL (1.3-7.7); Neutrophils % (A) 72 %; Platelet Count 399 k/uL (150-450); Poikilocytosis Slight; RBC 2.98 m/uL (3.80-5.40); RDW 17.8 % (11.5-15.5)
[2019-03-10 20:06] LABS: Partial Thromboplastin Time 20.4 sec (22.0-30.0); Prothrombin Time 10.6 sec (9.0-12.0)
[2019-03-10 20:15] LABS: HGB 8.9 gm/dL (11.4-16.0)
[2019-03-10 20:41] LABS: D-Dimer 0.71 mg/L FEU (<0.60)
[2019-03-10] MEDS ORDERED: IPRATROPIUM-ALBUTEROL 3 ML NEB INHALATION PRN (21:06)
[2019-03-10] MEDS ORDERED: methylPREDNISolone SOD SUCCI 125 MG/2 ML VIAL IV STA (21:06)
[2019-03-10] MEDS ORDERED: LEVOFLOXACIN 750MG-D5W PMX 750 MG in DEXTROSE/WATER 1 150ML.BAG IVPB STA (21:08)
[2019-03-10] MEDS ORDERED: ENOXAPARIN 80 MG/0.8 ML SYRINGE SQ ONE (21:15)
[2019-03-10 22:37] VITALS: BMI 36.1
[2019-03-10] MEDS: methylPREDNISolone SOD SUCCI 125 MG/2 ML VIAL IV SCH (23:57)
[2019-03-11] MEDS: methylPREDNISolone SOD SUCCI 125 MG/2 ML VIAL IV SCH ×3 (06:13→17:33)
[2019-03-11 06:25] LABS: Glucose,Whole Blood 176 mg/dL (75-99)
[2019-03-11 07:13] LABS: Anisocytosis Slight; Basophils % (A) 0 %; Eosinophils % (A) 0 %; HCT 31.1 % (34.0-46.0); Hypochromasia Marked; Lymphocytes # (A) 0.8 k/uL (1.0-4.8); Lymphocytes % (A) 12 %; MCH 29.3 pg (25.0-35.0); MCV 101.1 fL (80.0-100.0); Macrocytosis Slight; Mean Platelet Volume 7.4; Monocytes # (A) 0.1 k/uL (0-1.0); Monocytes % (A) 1 %; Neutrophils # (A) 5.3 k/uL (1.3-7.7); Neutrophils % (A) 85 %; Platelet Count 403 k/uL (150-450); Poikilocytosis Slight; RBC 3.08 m/uL (3.80-5.40); RDW 17.2 % (11.5-15.5); WBC 6.3 k/uL (3.8-10.6)
[2019-03-11 07:27] LABS: Calcium 9.2 mg/dL (8.4-10.2); Potassium 4.8 mmol/L (3.5-5.1)
[2019-03-11] MEDS: IPRATROPIUM-ALBUTEROL 3 ML NEB INHALATION SCH ×4 (08:11→19:24)
--- NOTE | 2019-03-11 09:48 | P.CRDCN ---
History of Present Illness Consult date: 03/11/19 Chief complaint: Shortness of breath History of present illness: This is a pleasant 84-year-old female patient with a past medical hist ory significant for coronary artery disease and status post coronary artery stenting with unknown details, the procedure was performed about one month ago at [facility], chronic kidney disease, hypertension, dyslipidemia, and chronic anemia, presented to the hospital complaining of sh ortness of breath. The patient was experiencing shortness of breath about 6 weeks ago before a heart catheterization was performed and revealed severe coronary artery disease where at that point she underwent coronary artery stenting. She stated that the shortness of breath never get better. For the last few weeks, she has been experiencing shortness of breath even with minimal exertion including walking for a few steps and sometimes carrying a conversation. No orthopnea or PND. She was experiencing bilateral lower extremities edema and the dose of Lasix was doubled by her primary media monitor and she stated that the edema has improved. No dizziness or lightheadedness, heart racing or fluttering, or syncope. No chest pain or chest discomfort. No cough, sputum, fever, or chills. No abdominal pain or abdominal discomfort. She underwent an EKG which revealed sinus tachycardia. There was some concern about PE and because of that the patient was sent for VQ scan which is a still pending. The chest x-ray did not show any acute abnormalities. The BNP came in to be around 800 only. On physical examination, she does not seems to be in fluid overload at this point. The troponin came in to be unremarkable. The hemoglobin is 9.0. The creatinine is 1.8. Past Medical History Past Medical History: Coronary Artery Disease (CAD), Diabetes Mellitus, Hyperlipidemia, Pneumonia Additional Past Medical History / Comment(s): gout History of Any Multi-Drug Resistant Organisms: None Reported Past Surgical History: Appendectomy, Heart Catheterization With Stent, Ortho pedic Surgery Additional Past Surgical History / Comment(s): Rt foot hammer toe repair, breast biopsy, right leg and ankle surgery, cataract repair in 2008, colonoscopy/egd in 2016 Past Anesthesia/Blood Transfusion Reactions: No Reported Reaction Date of Last Stent Placement:: 02/06/2019 Past Psychological History: No Psychological Hx Reported Smoking Status: Former smoker Past Alcohol Use History: None Reported Additional Past Alcohol Use History / Comment(s): pt. stopped smoking in 1993 Past Drug Use History: None Reported - Past Family History Mother Family Medical History: Diabetes Mellitus Medications and Allergies Home Medications Medication Instructions Recorded Confirmed Type Cyanocobalamin [Vitamin B-12] 1,000 mcg PO DAILY 03/05/15 03/10/19 History Multivitamins, Thera [Multivitamin 1 tab PO DAILY 03/05/15 03/10/19 History (formulary)] Potassium 99 mg PO DAILY 03/05/15 03/10/19 History Atorvastatin [Lipitor] 20 mg PO HS 03/11/15 03/10/19 History Aspirin EC [Ecotrin Low Dose] 81 mg PO DAILY 02/10/19 03/10/19 History Cetirizine HCl [Zyrtec] 10 mg PO DAILY PRN 02/10/19 03/10/19 History Cholecalciferol [Vitamin D3 (25 2,000 unit PO DAILY 02/10/19 03/10/19 History Mcg = 1000 Iu)] Clopidogrel [Plavix] 75 mg PO DAILY 02/10/19 03/10/19 History Famotidine [Pepcid] 20 mg PO DAILY 02/10/19 03/10/19 History Ferrous Sulfate [Iron (65 MG 325 mg PO DAILY 02/10/19 03/10/19 History Elemental)] L.acidoph,Paracasei, B.lactis 1 cap PO DAILY 02/10/19 03/10/19 History [Probiotic] Linagliptin [Tradjenta] 5 mg PO DAILY 02/10/19 03/10/19 History Allopurinol [Zyloprim] 100 mg PO DAILY 03/10/19 03/10/19 History Furosemide [Lasix] 40 mg PO DAILY 03/10/19 03/10/19 History amLODIPine [Norvasc] 5 mg PO DAILY 03/10/19 03/10/19 History Allergies Allergy/AdvReac Type Severity Reaction Status Date / Time articaine HCl Allergy Rash/Hives Verified 03/10/19 22:20 [From Septocaine] codeine Allergy Rash/Hives Verified 03/10/19 22:20 epinephrine [From Septocaine] Allergy Rash/Hives Verified 03/10/19 22:20 erythromycin base Allergy Rash/Hives Verified 03/10/19 22:20 Iodinated Contrast- Oral and Allergy Rash/Hives Verified 03/10/19 22:20 IV Dye [Iodinated Contrast Media - IV Dye] morphine Allergy Nausea & Verified 03/10/19 22:20 Vomiting phenazopyridine HCl Allergy Rash/Hives Verified 03/10/19 22:20 [From Pyridium] streptomycin Allergy Rash/Hives Verified 03/10/19 22:20 Sulfa (Sulfonamide Allergy Rash/Hives Verified 03/10/19 22:20 Antibiotics) Physical Exam Vitals: Vital Signs Temp Pulse Pulse Resp BP BP Pulse Ox 03/11/19 03:22 83 16 139/63 92 L 03/11/19 01:50 98.2 F 91 16 170/70 94 L 03/10/19 22:00 98.5 F 94 19 152/71 97 03/10/19 21:43 91 18 143/59 97 03/10/19 18:11 97.9 F 101 H 26 H 135/72 91 L Intake and Output 03/10/19 03/11/19 03/11/19 22:59 06:59 14:59 Intake Total 360 Balance 360 Intake: Oral 360 Other: Voiding Method Toilet Toilet # Voids 1 Weight 92.533 kg 92.4 kg - Respiratory Respiratory: bilateral: diminished - Cardiovascular Rhythm: regular Heart sounds: normal: S1, S2 Results 03/11/19 06:55 03/11/19 06:55 Cardiac Enzymes 03/10/19 03/10/19 Range/Units 18:30 18:30 AST 23 (14-36) U/L Troponin I <0.012 (0.000-0.034) ng/mL Coagulation 03/10/19 Range/Units 18:30 PT 10.6 (9.0-12.0) sec APTT 20.4 L (22.0-30.0) sec CBC 03/10/19 03/11/19 Range/Units 18:30 06:55 WBC 9.0 6.3 (3.8-10.6) k/uL RBC 2.98 L 3.08 L (3.80-5.40) m/uL Hgb 8.9 L D 9.0 L (11.4-16.0) gm/dL Hct 29.8 L 31.1 L (34.0-46.0) % Plt Count 399 403 (150-450) k/uL Comprehensive Metabolic Panel 03/10/19 03/11/19 Range/Units 18:30 06:55 Sodium 140 141 (137-145) mmol/L Potassium 4.0 4.8 (3.5-5.1) mmol/L Chloride 108 H 109 H (98-107) mmol/L Carbon Dioxide 21 L 23 (22-30) mmol/L BUN 35 H 31 H (7-17) mg/dL Creatinine 1.39 H 1.18 H (0.52-1.04) mg/dL Glucose 167 H 160 H (74-99) mg/dL Calcium 9.2 9.2 (8.4-10.2) mg/dL AST 23 (14-36) U/L ALT 13 (9-52) U/L Alkaline Phosphatase 47 (38-126) U/L Total Protein 6.3 (6.3-8.2) g/dL Albumin 3.3 L (3.5-5.0) g/dL Current Medications Generic Name Dose Route Start Last Admin Trade Name Freq PRN Reason Stop Dose Admin Albuterol/Ipratropium 3 ml 03/11/19 08:00 03/11/19 08:11 Duoneb 0.5 Mg-3 Mg/3 Ml Soln INHALATION Not Given RT-QID MACKENZIE Albuterol/Ipratropium 3 ml 03/10/19 21:06 Duoneb 0.5 Mg-3 Mg/3 Ml Soln INHALATION RT-Q4H PRN Shortness Of Breath Or Wheezing Enoxaparin Sodium 80 mg 03/11/19 21:00 Lovenox SQ HS MACKENZIE Levofloxacin 750 mg/ IV 150 mls @ 100 mls/hr 03/12/19 09:00 Solution IVPB Q48H [facility] Methylprednisolone Sodium Succinate 60 mg 03/11/19 00:00 03/11/19 06:13 Solu-Medrol IV 60 mg Q6HR MACKENZIE Administration Sodium Chloride 10 ml 03/11/19 09:00 Saline Flush IV BID MACKENZIE Intake and Output 03/10/19 03/11/19 03/11/19 22:59 06:59 14:59 Intake Total 360 Balance 360 Intake: Oral 360 Other: Voiding Method Toilet Toilet # Voids 1 Weight 92.533 kg 92.4 kg 03/11/19 06:55 03/11/19 06:55 Assessment and Plan Assessment: Assessment #1 shortness of breath which is likely to be multi-factorial #2 coronary artery disease and status post coronary artery stenting #3 chronic kidney disease #4 multiple comorbid conditions Plan #1 rule out acute coronary event. Will follow-up with the serial cardiac enzymes #2 obtain an echocardiogram was Doppler to assess the LV function and for any intracardiac valves abnormalities #3 follow-up with a VQ scan to rule out a PE #4 the patient doesn't seems to be in any overt congestive heart failure at this point #5 follow-up with the patient Thank you for allowing us participate in her care and we will follow-up with her.
--- NOTE | 2019-03-11 09:49 | NM ---
EXAMINATION TYPE: NM pul vent and perfuse DATE OF EXAM: 03/11/2019 COMPARISON: Chest x-ray 03/10/2019 HISTORY: Difficulty breathing and dyspnea elevated d-dimer TECHNIQUE: Utilizing inhalation of 36.8 mCi Tc 99m DTPA aerosol and intravenous injection of 5.1 mCi of Tc 99m MAA, ventilation and perfusion images are acquired post injection in multiple projections. FINDINGS: Ventilation appears worse than the perfusion. Moderate to large perfusion defects are not evident. IMPRESSION: Low probability for pulmonary embolism
[2019-03-11 12:19] LABS: Glucose,Whole Blood 115 mg/dL (75-99)
[2019-03-11 13:07] LABS: Anisocytosis Slight; Basophils % (A) 0 %; Eosinophils % (A) 0 %; HCT 31.2 % (34.0-46.0); HGB 9.1 gm/dL (11.4-16.0); Hypochromasia Marked; Lymphocytes % (A) 13 %; MCH 30.1 pg (25.0-35.0); MCHC 29.3 g/dL (31.0-37.0); MCV 102.7 fL (80.0-100.0); Macrocytosis Moderate; Mean Platelet Volume 7.7; Monocytes # (A) 0.3 k/uL (0-1.0); Monocytes % (A) 4 %; Neutrophils # (A) 6.1 k/uL (1.3-7.7); Neutrophils % (A) 81 %; Platelet Count 412 k/uL (150-450); Poikilocytosis Slight; RBC 3.04 m/uL (3.80-5.40); RDW 17.5 % (11.5-15.5); WBC 7.6 k/uL (3.8-10.6)
--- NOTE | 2019-03-11 13:44 | CT ---
EXAMINATION TYPE: CT chest wo con DATE OF EXAM: 03/11/2019 COMPARISON: 02/11/2019 HISTORY: Dyspnea CT DLP: 793.5 mGycm, Automated exposure control for dose reduction was used. CONTRAST: None TECHNIQUE: Axial images were obtained at 1 mm thick sections at 10 mm intervals. This will limit po rtions of the examination which may not be visualized within the [id number]. Images were obtained in the prone and supine views. FINDINGS: Portion of the thyroid visualized is normal. Pulmonary fibrosis is evident. Some chronic bronchitis may be present. No bronchiectasis is evident. A 0.7 cm nodules within the right middle lobe, present previously and stable. No enlarged mediastinal or hilar adenopathy is evident. The ascending aorta diameter at the level o f the main pulmonary artery is 2.9 cm. The main pulmonary artery diameter at the bifurcation is 2.[address] sections are obtained through the upper abdomen. Abdomen is essentially unremarkable. IMPRESSIONS: 1. Stable appearing pulmonary fibrosis. 2. Stable nodule right middle lobe.
[2019-03-11] MEDS ORDERED: LORATADINE 10 MG TAB PO PRN (15:46)
[2019-03-11] MEDS: amLODIPine 5 MG TAB PO SCH (16:43)
[2019-03-11] MEDS: ALLOPURINOL 100 MG TAB PO SCH (16:43)
[2019-03-11] MEDS: FUROSEMIDE 40 MG TAB PO SCH (16:44)
[2019-03-11] MEDS: POTASSIUM CHLORIDE ER 10 MEQ TAB.ER.PRT PO SCH (16:44)
[2019-03-11] MEDS: CLOPIDOGREL 75 MG TAB PO SCH (16:44)
[2019-03-11] MEDS: LINAGLIPTIN 5 MG TABLET PO SCH (16:44)
[2019-03-11 16:47] LABS: Glucose,Whole Blood 180 mg/dL (75-99)
--- NOTE | 2019-03-11 17:32 | CONS ---
CONSULTATION PULMONARY/CRITICAL CARE CONSULTATION: DATE OF CONSULTATION: 03/11/2019 This is a very pleasant 84-year-old female who states that about a month ago she had a stent placed in her coronary artery. Since that time, she has been complaining of fatigue, weakness and shortness of breath on exertion. The patient states that it has been progressive in nature since that time. Her shortness of breath is never at rest, it is only on exertion. She denies any cough or phlegm production. She does have some occasional chest tightness. No chest pain or chest pressure. No fever or chills. No nausea, vomiting or diarrhea. The patient was a heavy smoker in the past. She may have some underlying COPD. In addition, her chest x-ray showed evidence of diffuse interstitial changes which could relate to either interstitial edema, CHF and/or interstitial lung disease. A ventilation-perfusion lung scan was low probability for pulmonary embolism. HOME MEDICATIONS: Include vitamin B12, multiple vitamins, potassium, Lipitor, aspirin, Zyrtec, vitamin D3, Plavix, famotidine, iron, lactobacillus acidophilus, Tradjenta, Zyloprim, Norvasc. ALLERGIES: Multiple include SEPTOCAINE, CODEINE, ERYTHROMYCIN, IVP DYE, MORPHINE, PYRIDIUM, STREPTOMYCIN and SULFA ANTIBIOTICS. PAST MEDICAL HISTORY: Includes CAD with recent stent placement about 1 month ago, diabetes, hyperlipidemia, gout, and possible underlying COPD from heavy tobacco use. SURGICAL HISTORY: Includes among other things heart catheterization with stent, appendectomy, right foot hammertoe repair, breast biopsy and right leg surgery. SOCIAL HISTORY: Positive for significant tobacco use. She smoked for more than 40 years at 1-2 packs a day. Quit a couple years back. Alcohol is denied. Illicit drug use is denied. FAMILY HISTORY: Positive for mother with diabetes. REVIEW OF SYSTEMS: CONSTITUTIONAL: Weakness and fatigue. NEUROLOGIC: Negative. HEENT: Negative. CARDIOVASCULAR: Negative. PULMONARY: Shortness of breath on exertion. GI: Negative. : Negative RHEUMATOLOGIC: Negative. IMMUNOLOGIC: Negative. ENDOCRINOLOGIC: Negative. DERMATOLOGIC: Negative. PHYSICAL EXAMINATION: VITAL SIGNS: Current vital signs are reviewed. Temperature 97.7, heart rate 72, respiratory rate 18, blood pressure 140/61, mean 87, 2 L saturation 96%. She appears in no acute distress. She does have some mild conversational dyspnea as she was getting up from the toilet to go back in the bed. No audible wheezing. No use of accessory muscles. HEENT examination is grossly unremarkable. Mucous membranes are moist. No oral lesions. NECK: Supple. Full range of motion. No adenopathy or thyromegaly. Neck veins are flat. CARDIOVASCULAR examination reveals regular rhythm rate. S1, S2 normal. No murmur. No S3 or S4. LUNGS: Reveal some bibasilar crackles. It could be on the basis of heart failure and/or interstitial fibrosis. No rhonchi or wheezes. Breath sounds equal. She is not particularly restricted in her breathing. ABDOMEN: Soft. Bowel sounds are heard. No masses are noted. EXTREMITIES are intact. No cyanosis, clubbing, or edema. SKIN: Without rash. NEUROLOGIC examination is brief but nonfocal. LABORATORY DATA: Includes a white count of 6.3, hemoglobin 9, hematocrit 31.1, platelet count 403,000. PT/INR normal. PTT is 20.4. D-dimer 0.71. Sodium and potassium normal. Chloride 109, CO2 23, anion gap is 9. BUN and creatinine were 31 and 1.18. Total bilirubin is 0.3. Calcium 9.2, albumin 3.3. N terminal proBNP 679. A chest x-ray was done. It is showing a diffuse lung process, a bit more on the right side than on the left side. This could be interstitial fibrosis and/or interstitial edema. A ventilation-perfusion lung scan was low probability for pulmonary embolism. Medications are reviewed. They include Lovenox, DuoNeb, Levaquin, Solu-Medrol 60 q.6h and a basic IV. ASSESSMENT: 1. Shortness of breath, which may be multifactorial. It may relate to underlying chronic obstructive pulmonary disease as the patient was a previous heavy smoker, interstitial lung disease/pulmonary fibrosis, and/or interstitial edema. 2. Recent stent placement for coronary artery disease. 3. Previous history of heavy tobacco use. 4. History of hyperlipidemia. 5. Diabetes mellitus. 6. Multiple orthopedic procedures. 7. Dyspnea on exertion. 8. Obesity. PLAN: The patient will be scheduled to get a high-resolution CT scan. In addition, the patient should get a followup in our office for complete pulmonary function test. Additional recommendations and suggestions are forthcoming. The patient will be treated for COPD. Please see my orders and my recommendations with regard to medications. MMODL / IJN: [id number] /
[2019-03-11] MEDS: SYMBICORT 160-4.5 MCG INHALER INHALATION SCH (19:23)
[2019-03-11] MEDS ORDERED: ENOXAPARIN 80 MG/0.8 ML SYRINGE SQ SCH (21:00)
[2019-03-11] MEDS ORDERED: ATORVASTATIN 20 MG TAB PO SCH (21:00)
[2019-03-11 21:02] LABS: Glucose,Whole Blood 249 mg/dL (75-99)
--- NOTE | 2019-03-11 21:06 | P.HPIM ---
History of Present Illness H&P Date: 03/11/19 Chief Complaint: Shortness of breath History of presenting complaint: This is a 84-year-old patient of Dr. Josh Llanos. Chronic stable medical conditions include obesity, hyperlipidemia, hypertension, coronary artery disease with stent, primary osteoarthritis. Patient presents with worsening short of breath which has been progressive. Coming on for quite some time. It is coming on only with a few steps now patient has slight edema. Always uses 2 pillows. Has a slight cough. No fever no chills. No sputum production. Admitted for the same. Review of systems: GEN.: Tired EYES: None HEENT: None NECK: None RESPIRATORY: As above CARDIOVASCULAR: None GASTROINTESTINAL: None GENITOURINARY: None MUSCULOSKELETAL: Some pain in the joints LYMPHATICS: None HEMATOLOGICAL: None PSYCHIATRY: None NEUROLOGICAL: None Past medical history: Hypertension, hyperlipidemia coronary artery disease with stent , obesity Social history: . Did smoke in the past. Stopped smoking in 1993 No significant drink alcohol. Physical examination: VITAL SIGNS: 97.9, 101, 96, 135/72, 91% room air GENERAL: BMI 36.1, propped up in bed, tired appearing. EYES: Pupils equal. Conjunctiva normal. HEENT: External appearance of nose and ears normal, oral cavity grossly normal. NECK: JVD not raised; masses not palpable. HEART: First and second heart sounds are normal; minimal edema. LUNGS: Respiratory rate increased, decreased breath sounds. ABDOMEN: Soft, nontender, liver spleen not palpable, no masses palpable. PSYCH: Alert and oriented x3; mood and affect normal. NEUROLOGICAL: Cranial nerves grossly intact; no facial asymmetry, power and sensation grossly intact. LYMPHATICS: No lymph nodes palpable in the axilla and neck MUSCULAR skeletal: Evidence of OA especially in the hands and knees Investigations, reviewed and the clinical context: White count 6.3 hemoglobin 9 platelets. 3 potassium 4.8 BUN 31 and creatinine 1 .18 Patient's creatinine on February 10 was 1.34 EKG tracing personally reviewed by me shows first-degree AV block no specific findings Computed tomography scan of the chest pelvis and abdomen from February 11 shows scattered parenchymal fibrosis some honeycombing and metoprolol lungs, gallstones numerous calcification throughout the spleen cortical thinning over the kidneys Checks x-ray film was reviewed by me shows bilateral scattered infiltrates Assessment: -This is a patient was at progressive short of breath coming on for quite some time. More so recently. Patient's computed tomography scan from a month ago where show evidence of pulmonary fibrosis. Which most likely blistered the patient's reason for the same. Patient's BNP is minimally raised. -Obesity BMI 37.9 -Hyperlipidemia -Essential hypertension -Coronary artery disease with a stent -Primary osteoarthritis of the hands and knees( -Obesity BMI 36.1 -Chronic kidney disease stage III from nephrosclerosis -First-degree AV block Plan: Cardiology and pulmonary was consulted. Home medications resumed. Care was discussed with the patient. Given patient's age options are rather limited. And patient left to manage with oxygen. Patient reluctant to follow with pulmonary as an outpatient. Prognosis guarded. Past Medical History Past Medical History: Coronary Artery Disease (CAD), Diabetes Mellitus, Hyperlipidemia, Pneumonia Additional Past Medical History / Comment(s): gout History of Any Multi-Drug Resistant Organisms: None Reported Past Surgical History: Appendectomy, Heart Catheterization With Stent, O rthopedic Surgery Additional Past Surgical History / Comment(s): Rt foot hammer toe repair, breast biopsy, right leg and ankle surgery, cataract repair in 2008, colonoscopy/egd in 2016 Past Anesthesia/Blood Transfusion Reactions: No Reported Reaction Date of Last Stent Placement:: 02/06/2019 Past Psychological History: No Psychological Hx Reported Smoking Status: Former smoker Past Alcohol Use History: None Reported Additional Past Alcohol Use History / Comment(s): pt. stopped smoking in 1993 Past Drug Use History: None Reported - Past Family History Mother Family Medical History: Diabetes Mellitus Medications and Allergies Home Medications Medication Instructions Recorded Confirmed Type Cyanocobalamin [Vitamin B-12] 1,000 mcg PO DAILY 03/05/15 03/10/19 History Multivitamins, Thera [Multivitamin 1 tab PO DAILY 03/05/15 03/10/19 History (formulary)] Potassium 99 mg PO DAILY 03/05/15 03/10/19 History Atorvastatin [Lipitor] 20 mg PO HS 03/11/15 03/10/19 History Aspirin EC [Ecotrin Low Dose] 81 mg PO DAILY 02/10/19 03/10/19 History Cetirizine HCl [Zyrtec] 10 mg PO DAILY PRN 02/10/19 03/10/19 History Cholecalciferol [Vitamin D3 (25 2,000 unit PO DAILY 02/10/19 03/10/19 History Mcg = 1000 Iu)] Clopidogrel [Plavix] 75 mg PO DAILY 02/10/19 03/10/19 History Famotidine [Pepcid] 20 mg PO DAILY 02/10/19 03/10/19 History Ferrous Sulfate [Iron (65 MG 325 mg PO DAILY 02/10/19 03/10/19 History Elemental)] L.acidoph,Paracasei, B.lactis 1 cap PO DAILY 02/10/19 03/10/19 History [Probiotic] Linagliptin [Tradjenta] 5 mg PO DAILY 02/10/19 03/10/19 History Allopurinol [Zyloprim] 100 mg PO DAILY 03/10/19 03/10/19 History Furosemide [Lasix] 40 mg PO DAILY 03/10/19 03/10/19 History amLODIPine [Norvasc] 5 mg PO DAILY 03/10/19 03/10/19 History Allergies Allergy/AdvReac Type Severity Reaction Status Date / Time articaine HCl Allergy Rash/Hives Verified 03/10/19 22:20 [From Septocaine] codeine Allergy Rash/Hives Verified 03/10/19 22:20 epinephrine [From Septocaine] Allergy Rash/Hives Verified 03/10/19 22:20 erythromycin base Allergy Rash/Hives Verified 03/10/19 22:20 Iodinated Contrast- Oral and Allergy Rash/Hives Verified 03/10/19 22:20 IV Dye [Iodinated Contrast Media - IV Dye] morphine Allergy Nausea & Verified 03/10/19 22:20 Vomiting phenazopyridine HCl Allergy Rash/Hives Verified 03/10/19 22:20 [From Pyridium] streptomycin Allergy Rash/Hives Verified 03/10/19 22:20 Sulfa (Sulfonamide Allergy Rash/Hives Verified 03/10/19 22:20 Antibiotics) Physical Exam Vitals: Vital Signs Temp Pulse Pulse Resp BP BP Pulse Ox 03/11/19 19:42 84 03/11/19 19:25 80 03/11/19 16:38 82 03/11/19 16:27 82 03/11/19 16:15 97.9 F 88 18 132/60 89 L 03/11/19 12:05 84 17 128/55 97 03/11/19 11:09 74 03/11/19 10:58 72 03/11/19 08:00 97.7 F 91 18 140/61 96 03/11/19 03:22 83 16 139/63 92 L 03/11/19 01:50 98.2 F 91 16 170/70 94 L 03/10/19 22:00 98.5 F 94 19 152/71 97 03/10/19 21:43 91 18 143/59 97 Intake and Output 03/11/19 03/11/19 03/11/19 06:59 14:59 22:59 Intake Total 720 360 Balance 720 360 Intake: Oral 720 360 Other: Voiding Method Toilet # Voids 1 1 1 Weight 92.4 kg Results CBC & Chem 7: 03/11/19 12:23 03/11/19 06:55 Labs: Abnormal Lab Results - Last 24 Hours (Table) 03/11/19 03/11/19 03/11/19 Range/Units 06:12 06:55 06:55 RBC 3.08 L (3.80-5.40) m/uL Hgb 9.0 L (11.4-16.0) gm/dL Hct 31.1 L (34.0-46.0) % MCV 101.1 H (80.0-100.0) fL MCHC 29.0 L (31.0-37.0) g/dL RDW 17.2 H (11.5-15.5) % Lymphocytes # 0.8 L (1.0-4.8) k/uL Chloride 109 H (98-107) mmol/L BUN 31 H (7-17) mg/dL Creatinine 1.18 H (0.52-1.04) mg/dL Glucose 160 H (74-99) mg/dL POC Glucose (mg/dL) 176 H (75-99) mg/dL 03/11/19 03/11/19 03/11/19 Range/Units 12:16 12:23 16:43 RBC 3.04 L (3.80-5.40) m/uL Hgb 9.1 L (11.4-16.0) gm/dL Hct 31.2 L (34.0-46.0) % MCV 102.7 H (80.0-100.0) fL MCHC 29.3 L (31.0-37.0) g/dL RDW 17.5 H (11.5-15.5) % Lymphocytes # (1.0-4.8) k/uL Chloride (98-107) mmol/L BUN (7-17) mg/dL Creatinine (0.52-1.04) mg/dL Glucose (74-99) mg/dL POC Glucose (mg/dL) 115 H 180 H (75-99) mg/dL Thrombosis Risk Factor Assmnt - Choose All That Apply Any of the Below Risk Factors Present?: Yes Each Factor Represents 1 point: Obesity (BMI >25) Other Risk Factors: Yes Each Risk Factor Represents 3 Points: Age 75 years or older, History of DVT/PE Other congenital or acquired thrombophilia - If yes, enter type in comment: No Thrombosis Risk Factor Assessment Total Risk Factor Score: 7 Thrombosis Risk Factor Assessment Level: High Risk
[2019-03-11] MEDS: INSULIN ASPART (NovoLOG) 100 UNIT/ML VIAL SQ SCH (21:18)
[2019-03-11] MEDS: methylPREDNISolone SOD SUCCI 40 MG/ML 1 ML VIAL IV SCH (23:57)
[2019-03-12 06:56] LABS: Glucose,Whole Blood 191 mg/dL (75-99)
[2019-03-12] MEDS ORDERED: INSULIN ASPART (NovoLOG) 100 UNIT/ML VIAL SQ SCH (07:30)
[2019-03-12] MEDS: SYMBICORT 160-4.5 MCG INHALER INHALATION SCH (08:11)
[2019-03-12] MEDS: IPRATROPIUM-ALBUTEROL 3 ML NEB INHALATION SCH ×3 (08:11→16:21)
[2019-03-12] MEDS: ALLOPURINOL 100 MG TAB PO SCH (08:14)
[2019-03-12] MEDS: amLODIPine 5 MG TAB PO SCH (08:14)
[2019-03-12] MEDS: POTASSIUM CHLORIDE ER 10 MEQ TAB.ER.PRT PO SCH (08:14)
[2019-03-12] MEDS: methylPREDNISolone SOD SUCCI 40 MG/ML 1 ML VIAL IV SCH (08:14)
[2019-03-12] MEDS: CLOPIDOGREL 75 MG TAB PO SCH (08:14)
[2019-03-12] MEDS: FUROSEMIDE 40 MG TAB PO SCH (08:14)
[2019-03-12] MEDS: INSULIN ASPART (NovoLOG) 100 UNIT/ML VIAL SQ SCH ×2 (08:15→12:28)
[2019-03-12] MEDS: LINAGLIPTIN 5 MG TABLET PO SCH (08:58)
[2019-03-12] MEDS ORDERED: FAMOTIDINE 20 MG TAB PO SCH (09:00)
[2019-03-12] MEDS ORDERED: FERROUS SULFATE 325 MG TAB PO SCH (09:00)
[2019-03-12] MEDS ORDERED: MULTIVITAMINS, THERA 1 EACH TAB PO SCH (09:00)
[2019-03-12] MEDS ORDERED: CYANOCOBALAMIN 500 MCG TAB PO SCH (09:00)
[2019-03-12] MEDS ORDERED: CHOLECALCIFEROL 1,000 UNIT TAB PO SCH (09:00)
[2019-03-12] MEDS ORDERED: LACTOBACILLUS ACIDOPH & BULGAR 1 EACH PACKET PO SCH (09:00)
[2019-03-12] MEDS ORDERED: ASPIRIN 81 MG PO SCH (09:00)
[2019-03-12] MEDS ORDERED: LEVOFLOXACIN 750MG-D5W PMX 750 MG in DEXTROSE/WATER 1 150ML.BAG IVPB SCH (09:00)
--- NOTE | 2019-03-12 10:33 | PN ---
PROGRESS NOTE DATE OF SERVICE: March 12, 2019 This is a very pleasant 84-year-old female who has seen my partner in the past. She recently had a stent placed for coronary artery disease. Since that time, she has been complaining of fatigue, weakness, shortness of breath on exertion. The symptoms have been progressive in nature. Her shortness of breath is never at rest only on exertion. She had no cough or phlegm production. She does have occasional chest tightness. My impression was that her shortness of breath was likely multifactorial in part related to underlying COPD from previous tobacco use and/or interstitial edema and/or interstitial lung disease. I suspected interstitial lung disease based on the examination, which revealed bibasilar crackles. Anyway, I did order a high-resolution CT scan and it did show evidence of pulmonary fibrosis. Her primary doctor is Dr. Josh Llanos. She needs to follow up with Dr. Contreras in the future for better staging of her chronic lung disease and to determine what portion of her lung disease relates to COPD if any and what portion of her lung disease symptoms relate to interstitial lung disease. She is feeling better today. Other medical problems include CAD, previous history of heavy tobacco use, hyperlipidemia, diabetes, and multiple orthopedic procedures. PHYSICAL EXAMINATION: VITAL SIGNS: Current vital signs include temperature 97.4, heart rate 76, respiratory rate 20, blood pressure 144/70, mean 94 and 2 L saturation 97%. Appears in no acute distress. HEENT: Examination is grossly unremarkable. NECK: Supple. Full range of motion. No adenopathy. Neck veins are flat. CARDIOVASCULAR: Examination reveals regular rhythm and rate. S1, S2 normal. No S3, S4, or murmur. LUNGS: Reveal bibasilar crackles. There are a few scattered rhonchi. Slight prolongation on forced maneuver. ABDOMEN: Soft. Bowel sounds are heard. No masses or tenderness. EXTREMITIES: Are intact. No cyanosis, clubbing, or edema. SKIN: Without rash. NEUROLOGIC: Examination is brief but nonfocal. Today, I explained the CAT scan results to the patient. The patient has seen Dr. Contreras in the past. She was a heavy smoker. Again, it is probably a component of both disease processes which is making her short of breath. No labs today to speak of. Microbiologic studies are negative. MEDICATIONS: Her medications are reviewed. From the pulmonary standpoint, she is on Symbicort, DuoNeb and Solu-Medrol. ASSESSMENT: 1. Shortness of breath, likely multifactorial, in part relating to underlying chronic obstructive pulmonary disease exacerbation, pulmonary fibrosis, and/or mild interstitial edema. 2. Recent stent placement for coronary artery disease with significant fatigue and weakness afterwards. 3. Previous history of heavy tobacco use. 4. History of hyperlipidemia. 5. Diabetes mellitus. 6. Multiple orthopedic procedures. 7. Dyspnea on exertion. 8. Obesity. PLAN: The patient is doing reasonably well. The patient will follow up with Dr. Contreras post discharge. She will need complete pulmonary function testing. A 6-minute walk distance would also be beneficial. Additional recommendations and suggestions are forthcoming. The patient has seen Dr. Contreras in the past. MMODL / IJN: [id number] /
[2019-03-12] MEDS ORDERED: ISOSORBIDE MONONITRATE ER 30 MG TAB.ER.24H PO SCH (11:00)
[2019-03-12 11:30] LABS: Glucose,Whole Blood 212 mg/dL (75-99)
[2019-03-12 12:56] VITALS: BP 95/52; PULSE 98; RESP 16; TEMP 97.6
--- NOTE | 2019-03-12 14:42 | CDI ---
Documentation Clarification Form Date: 03/12/2019 2:34:35 PM From: Claudia Williamson CCS, CCDS Admit Date: 03/10/2019 9:06:00 PM Patient Name: Remberto Hernandez Visit Number: [id number] Discharge Date: ATTENTION: The Clinical Documentation Specialists (CDI) and [facility] Coding Staff appreciate your assistance in clarifying documentation. Please respond to the clarification below the line at the bottom and electronically sign. The CDI & [facility] Coding staff will review the response and follow-up if needed. Please note: Queries are made part of the Legal Health Record. If you have any questions, please contact the author of this message via ITS. Dr. Carlitos Cummings: A diagnosis of anemia lacks specificity to accurately reflect your patients severity of condition and clarification is needed. Per the cardiology consult: ".....chronic kidney disease, hypertension, dyslipidemia, and chronic anemia, presented to the hospital complaining of shortness of breath." History/Risk Factors: CAD, CKD III, DM II, Hypertension, Hyperlipidemia, Pneumonia & former heavy smoker. Clinical indicators: Patient had a coronary stent placed recently & now presents with fatigue & SOB. Had bilateral extremity edema recently, Lasix was doubled with some improvement. Diagnosed with possible COPD, pulmonary fibrosis and/or interstitial edema. Hemoglobin: 8.9* - 9.0* - 9.1* Hematocrit: 29.8* - 31.1* - 31.2* Treatment: H/H, IV Solumedrol, IV Levaquin, INH Albuterol, po Plavix, Norvasc, Lasix, Tradjenta, KDur, Feosol In order to capture the severity of condition, please clarify the type of anemia and etiology if known: Acute blood loss anemia Acute on chronic blood loss anemia Chronic blood loss anemia Iron deficiency anemia Hemolytic anemia Drug induced anemia Nutritional anemia Anemia of chronic kidney disease Unable to determine Other, please specify Iron Deficiency anemia MTDD
--- NOTE | 2019-03-12 19:14 | ECHOF ---
Referral Reason:dyspnea MEASUREMENTS -------- HEIGHT: 160.0 cm WEIGHT: 92.1 kg BP: IVSd: 0.7 cm (0.6 - 1.1) LVIDd: 4.7 cm (3.9 - 5.3) LVPWd: 1.1 cm (0.6 - 1.1) IVSs: 1.2 cm LVIDs: 2.8 cm LVPWs: 1.2 cm RVIDd: 2.8 cm (< 3.3) LAESV Index (A-L): 28.67 ml/m Ao Diam: 2.6 cm (2.0 - 3.7) LA Diam: 3.1 cm (2.7 - 3.8) AV Cusp: 1.8 cm (1.5 - 2.6) EPSS: 0.9 cm MV E Delfino: 0.76 m/s MV DecT: 188 ms MV A Delfino: 1.00 m/s MV E/A Ratio: 0.76 RAP: 5.00 mmHg RVSP: 10.41 mmHg MV EF SLOPE: 58.51 mm/s (70 - 150) MV EXCURSION: 15.27 mm (> 18.000) FINDINGS -------- Sinus rhythm. This was a technically difficult study with suboptimal views. The left ventricular size is normal. Left ventricular wall thickness is normal. Overall left vent ricular systolic function is normal with, an EF between 55 - 60 %. The right ventricle is normal in size. The left atrial size is normal. Normal LA size by volume 22+/-6 ml/m2. The right atrial size is normal. Lumason used Interatrial and interventricular septum intact. The aortic valve is trileaflet and appears structurally normal. The mitral valve is normal. The mitral valve leaflets are mildly thickened. Mild mitral annular c alcification present. There is trace mitral regurgitation. The tricuspid valve appears structurally normal. Trace tricuspid regurgitation present. Right adrienne tricular systolic pressure is normal at < 35 mmHg. There is no pulmonic regurgitation present. The aortic root size is normal. IVC Not well visulized. The pulmonary veins were not recorded. There is no pericardial effusion. CONCLUSIONS -------- 1. Sinus rhythm. 2. This was a technically difficult study with suboptimal views. 3. The left ventricular size is normal. 4. Left ventricular wall thickness is normal. 5. Overall left ventricular systolic function is normal with, an EF between 55 - 60 %. 6. The right ventricle is normal in size. 7. The left atrial size is normal. 8. Normal LA size by volume 22+/-6 ml/m2. 9. The right atrial size is normal. 10. Lumason used 11. Interatrial and interventricular septum intact. 12. The aortic valve is trileaflet and appears structurally normal. 13. The mitral valve is normal. 14. The mitral valve leaflets are mildly thickened. 15. Mild mitral annular calcification present. 16. There is trace mitral regurgitation. 17. The tricuspid valve appears structurally normal. 18. Trace tricuspid regurgitation present. 19. Right ventricular systolic pressure is normal at < 35 mmHg. 20. There is no pulmonic regurgitation present. 21. The aortic root size is normal. 22. IVC Not well visulized. 23. The pulmonary veins were not recorded. 24. There is no pericardial effusion. LEARNING OFFICER: Leidy Neves RDCS
--- NOTE | 2019-03-13 22:41 | P.DS ---
Providers Date of admission: 03/10/19 21:06 Expected date of discharge: 03/12/19 Attending physician: Diallo Cerda Consults: 03/10/19 21:05 Consult Physician Urgent Consulting Provider: Zev Holcomb Consult Reason/Comments: dyspnea Do you want consulting provider notified?: Yes Consult Physician Urgent Consulting Provider: Carlitos Cummings Consult Reason/Comments: dyspnea Do you want consulting provider notified?: Yes Primary care physician: Josh Llanos [place] Hospital Course: Hospital course: This is a 84-year-old patient of Dr. Josh Llanos. Chronic stable medical conditions include obesity, hyperlipidemia, hypertension, coronary artery disease with stent, primary osteoarthritis. Patient presents with worsening short of breath which has been progressive. Coming on for quite some time. It is coming on only with a few steps now patient has slight edema. Always uses 2 pillows. Has a slight cough. No fever no chills. No sputum production. Admitted for the same. Computed tomography scan was done and that didn't short time ago did confirm Probably fibrosis responsible for patient's symptoms. Options are limited. This was discussed with the patient. He'll follow-up with pulmonary as an outpatient. Care was discussed at length with the patient. Questions were answered Discussion and discharge planning more than 35 minutes Consultation: Dr. Rea from pulmonary Dr. Cummings from cardiology Physical examination: VITAL SIGNS: 97.6, 98, 16, 95/52, 94% at 2 L GENERAL: BMI 36.1, propped up in bed, tired appearing. EYES: Pupils equal. Conjunctiva normal. HEENT: External appearance of nose and ears normal, oral cavity grossly normal. NECK: JVD not raised; masses not palpable. HEART: First and second heart sounds are normal; minimal edema. LUNGS: Respiratory rate increased, decreased breath sounds. ABDOMEN: Soft, nontender, liver spleen not palpable, no masses palpable. PSYCH: Alert and oriented x3; mood and affect normal. Investigations, reviewed and the clinical context: White count 6.3 hemoglobin 9 platelets. 3 potassium 4.8 BUN 31 and creatinine 1.18 Patient's creatinine on February 10 was 1.34 EKG tracing personally reviewed by me shows first-degree AV block no specific findings Computed tomography scan of the chest pelvis and abdomen from February 11 shows scattered parenchymal fibrosis some honeycombing and metoprolol lungs, g allstones numerous calcification throughout the spleen cortical thinning over the kidneys Checks x-ray film was reviewed by me shows bilateral scattered infiltrates 2-D echo shows EF of 55-60% Discharge diagnosis: -Bilateral pulmonary fibrosis, progressive, causing progressive short of breath -Gallstones asymptomatic. -Obesity BMI 37.9 -Hyperlipidemia -Essential hypertension -Coronary artery disease with a stent -Primary osteoarthritis of the hands and knees( -Obesity BMI 36.1 -Chronic kidney disease stage III from nephrosclerosis -First-degree AV block Disposition: Home Patient Condition at Discharge: Stable Plan - Discharge Summary Discharge Rx Participant: No New Discharge Prescriptions: New Ipratropium-Albuterol Nebulize [Duoneb 0.5 mg-3 mg/3 ml Soln] 3 ml INHALATION RT-QID #120 ampul.neb Isosorbide Mononitrate ER [Imdur] 30 mg PO DAILY #30 tab.er.24h predniSONE 10 mg PO DAILY #30 tab Budesonide-Formot 160-4.5 Mcg [Symbicort 160-4.5 Mcg Inhaler] 2 puff INHALATION RT-BID #1 puff Continue Cyanocobalamin [Vitamin B-12] 1,000 mcg PO DAILY Multivitamins, Thera [Multivitamin (formulary)] 1 tab PO DAILY Potassium 99 mg PO DAILY Atorvastatin [Lipitor] 20 mg PO HS Linagliptin [Tradjenta] 5 mg PO DAILY L.acidoph,Paracasei, B.lactis [Probiotic] 1 cap PO DAILY Ferrous Sulfate [Iron (65 MG Elemental)] 325 mg PO DAILY Cholecalciferol [Vitamin D3 (25 Mcg = 1000 Iu)] 2,000 unit PO DAILY Cetirizine HCl [Zyrtec] 10 mg PO DAILY PRN PRN Reason: Allergy Symptoms Aspirin EC [Ecotrin Low Dose] 81 mg PO DAILY Famotidine [Pepcid] 20 mg PO DAILY Clopidogrel [Plavix] 75 mg PO DAILY amLODIPine [Norvasc] 5 mg PO DAILY Allopurinol [Zyloprim] 100 mg PO DAILY Changed Furosemide [Lasix] 20 mg PO DAILY #0 Discharge Medication List Cyanocobalamin [Vitamin B-12] 1,000 mcg PO DAILY 03/05/15 [History] Multivitamins, Thera [Multivitamin (formulary)] 1 tab PO DAILY 03/05/15 [History] Potassium 99 mg PO DAILY 03/05/15 [History] Atorvastatin [Lipitor] 20 mg PO HS 03/11/15 [History] Aspirin EC [Ecotrin Low Dose] 81 mg PO DAILY 02/10/19 [History] Cetirizine HCl [Zyrtec] 10 mg PO DAILY PRN 02/10/19 [History] Cholecalciferol [Vitamin D3 (25 Mcg = 1000 Iu)] 2,000 unit PO DAILY 02/10/19 [History] Clopidogrel [Plavix] 75 mg PO DAILY 02/10/19 [History] Famotidine [Pepcid] 20 mg PO DAILY 02/10/19 [History] Ferrous Sulfate [Iron (65 MG Elemental)] 325 mg PO DAILY 02/10/19 [History] L.acidoph,Paracasei, B.lactis [Probiotic] 1 cap PO DAILY 02/10/19 [History] Linagliptin [Tradjenta] 5 mg PO DAILY 02/10/19 [History] Allopurinol [Zyloprim] 100 mg PO DAILY 03/10/19 [History] amLODIPine [Norvasc] 5 mg PO DAILY 03/10/19 [History] Budesonide-Formot 160-4.5 Mcg [Symbicort 160-4.5 Mcg Inhaler] 2 puff INHALATION RT-BID #1 puff 03/12/19 [Rx] Furosemide [Lasix] 20 mg PO DAILY #0 03/12/19 [Rx] Ipratropium-Albuterol Nebulize [Duoneb 0.5 mg-3 mg/3 ml Soln] 3 ml INHALATION RT-QID #120 ampul.neb 03/12/19 [Rx] Isosorbide Mononitrate ER [Imdur] 30 mg PO DAILY #30 tab.er.24h 03/12/19 [Rx] predniSONE 10 mg PO DAILY #30 tab 03/12/19 [Rx] Follow up Appointment(s)/Referral(s): Umesh Contreras MD [STAFF PHYSICIAN] - 04/03/19 9:00 am Carlitos Cummings MD [STAFF PHYSICIAN] - 03/30/19 9:30 am Josh Llanos MD [Primary Care Provider] - 03/18/19 10:30 am Patient Instructions/Handouts: Prednisone (By mouth), Isosorbide Mononitrate (By mouth), Ipratropium/Albuterol (By breathing), Budesonide/Formoterol (By breathing), Dyspnea (DC), Fatigue (DC) Discharge Disposition: HOME SELF-CARE
--- NOTE | 2019-03-16 01:16 | CDI ---
Documentation Clarification Form Date: 03/16/19 From: Miguel Angel Harper Phone: call to [phone] Admit Date: 03/10/2019 9:06:00 PM Patient Name: Remberto Hernandez Visit Number: [id number] Discharge Date: 03/12/2019 3:10:00 PM ATTENTION: The Clinical Documentation Specialists (CDI) and [facility] Coding Staff appreciate your assistance in clarifying documentation. Please respond to the clarification below the line at the bottom and electronically sign. The CDI & [facility] Coding staff will review the response and follow-up if needed. Please note: Queries are made part of the Legal Health Record. If you have any questions, please contact the author of this message via ITS. Dr. Diallo Cerda, Documentation of COPD Exacerbation is located in the 03/12/19 Progress note documented by Zev Trinidad. History/Risk Factors: COPD/pulmonary fibrosis. Significant history of respiratory disorders/disease Present or past smoker/PPD : past heavy smoker. Treatment: IV solumedrol, Iv levaquin Nebulizers : Yes Steroids : solumedrol Antibiotics: levaquin. Per Discharge summary note SOB likely related to pulmonary fibrosis. In your professional opinion, can you please clarify if the above findings and treatment signify any of the following? Acute Exacerbation of Chronic Obstructive Pulmonary Disease (COPD) Emphysema Other condition, please specify Unable to determine. No change in discharge diagnosis MTDD
== END 2019-03-12 15:10 | disposition home or self-care (01) | DRG 198 ==
LOC: EC 18:06 → 3SCARD 21:06 → 3NMEDONC 03-12 00:12
PROVIDERS: ADMIT Hospitalist; ATTEND Hospitalist
DX: J84.10 Pulmonary fibrosis, unspecified (principal); I12.9 Hypertensive chronic kidney disease with stage 1 through stage 4 chronic kidney disease, or unspecified chronic kidney disease; N18.3 Chronic kidney disease, stage 3 (moderate); D64.9 Anemia, unspecified; I44.0 Atrioventricular block, first degree; I25.10 Atherosclerotic heart disease of native coronary artery without angina pectoris; E11.22 Type 2 diabetes mellitus with diabetic chronic kidney disease; E78.5 Hyperlipidemia, unspecified; E66.9 Obesity, unspecified; M19.041 Primary osteoarthritis, right hand; J44.9 Chronic obstructive pulmonary disease, unspecified; K80.20 Calculus of gallbladder without cholecystitis without obstruction; M19.042 Primary osteoarthritis, left hand; M10.9 Gout, unspecified; Z68.37 Body mass index [BMI] 37.0-37.9, adult; Z95.5 Presence of coronary angioplasty implant and graft; Z79.899 Other long term (current) drug therapy; Z79.82 Long term (current) use of aspirin; Z79.02 Long term (current) use of antithrombotics/antiplatelets; Z79.84 Long term (current) use of oral hypoglycemic drugs; Z87.891 Personal history of nicotine dependence; Z83.3 Family history of diabetes mellitus
CPT/HCPCS: 36415; 71046; 71250; 78582; 80048; 80053; 83605; 83880; 84484; 85025; 85379; 85610; 85730; 87040; 93005; 93306; 94640; 96365; 96372; 96375; 99285

== ENCOUNTER → 2019-03-20 | Outpatient (CLI) | payer MEDICARE ==
--- NOTE | 2019-03-25 08:07 | US ---
EXAMINATION TYPE: US transvaginal DATE OF EXAM: 03/20/2019 COMPARISON: NONE CLINICAL HISTORY: D64.9 ANEMIA. TECHNIQUE: . Transabdominal sonographic images of the pelvis were acquired. Transvaginal sonographi c images were medically necessary to better assess the following anatomy: Date of LMP: EXAM MEASUREMENTS: Uterus: 6.0 x 3.2 x 4.5cm Endometrial Stripe: 1.0 cm Right Ovary: not visualized atrophy Left Ovary: not visualized atrophy 1. Uterus: 6.0 x 3.2 x 4.5cm 2. Endometrium: thickened 3. Right Ovary: not visualized atrophy 4. Left Ovary: not visualized atrophy 5. Bilateral Adnexa: wnl 6. Posterior cul-de-sac: wnl IMPRESSION: 1. Mild endometrial thickening. 2. Nonvisualization of the ovaries. No adnexal masses seen.
== END | disposition home or self-care (01) ==
LOC: RADUSWWP 15:27
PROVIDERS: ATTEND Family Medicine
DX: R93.89 Abnormal findings on diagnostic imaging of other specified body structures (principal); D64.9 Anemia, unspecified
CPT/HCPCS: 76830

== ENCOUNTER 2019-03-22 18:50 | Inpatient (IN) | payer MEDICARE ==
--- NOTE | 2019-03-22 19:49 | XR ---
EXAMINATION TYPE: XR chest 2V DATE OF EXAM: 03/22/2019 COMPARISON: 03/10/2019 HISTORY: Syncope TECHNIQUE: Frontal and lateral views of the chest are obtained. FINDINGS: There is pulmonary interstitial edema. Heart is enlarged. There are chest leads. There is no pleural effusion. IMPRESSION: Chronic coarse pulmonary interstitial infiltrates consistent with acute and chronic inte rstitial pneumonia. No change compared to recent exam. I see no pleural fluid to suggest heart failur e.
[2019-03-22 19:50] LABS: Basophils % (A) 0 %; Eosinophils # (A) 0.1 k/uL (0-0.7); Eosinophils % (A) 1 %; HCT 33.1 % (34.0-46.0); HGB 9.5 gm/dL (11.4-16.0); Hypochromasia Marked; Lymphocytes % (A) 11 %; MCH 27.8 pg (25.0-35.0); MCHC 28.8 g/dL (31.0-37.0); Mean Platelet Volume 7.5; Monocytes # (A) 0.6 k/uL (0-1.0); Monocytes % (A) 7 %; Neutrophils # (A) 7.5 k/uL (1.3-7.7); Neutrophils % (A) 80 %; Platelet Count 372 k/uL (150-450); RBC 3.43 m/uL (3.80-5.40); RDW 15.3 % (11.5-15.5); WBC 9.3 k/uL (3.8-10.6)
--- NOTE | 2019-03-22 19:56 | ED ---
General Adult HPI - General Chief complaint: Syncope Stated complaint: syncope Time Seen by Provider: 03/22/19 18:57 Source: patient, EMS Mode of arrival: EMS Limitations: no limitations - History of Present Illness Initial comments: Dictation was produced using [employer] (formerly [employer]) dictation software. please excuse any grammatical, word or spelling errors. Chief Complaint: 84-year-old female past medical history of coronary artery dis ease, diabetes, dyslipidemia pneumonia presents after episode of syncope. History of Present Illness: An 84-year-old female she has multiple cardiac comorbidities presents after episode of syncope. Patient does not quite recall that event. Patient is with her family member. He states he went to go get her some food to eat. He came back home and so that she was on the ground. He is unknown how long she was down for. Patient does report losing consciousness. Denies any headache or head trauma at this time. Patient does complain of some mild palpitations at this time. Denies any chest pain. She states that prior to the episode of syncope she got very short winded. Patient has any history of seizures. She was told that she had A. fib in the past however she is not on any medications for it currently. The ROS documented in this emergency department record has been reviewed and confirmed by me. Those systems with pertinent positive or negative responses have been documented in the HPI. All other systems are other negative and/or noncontributory. PHYSICAL EXAM: General Impression: Alert and oriented x3, not in acute distress HEENT: Normocephalic atraumatic, extra-ocular movements intact, pupils equal and reactive to light bilaterally, mucous membranes moist, left lateral tongue avulsion Cardiovascular: Irregular Chest: Lungs clear to auscultation bilaterally, no rhonchi, no wheeze, no rales Abdomen: Bowel sounds present, abdomen soft, non-tender, non-distended, no organomegaly Musculoskeletal: Pulses present and equal in all extremities, no peripheral edema Motor: no focal deficits noted Neurological: CN II-XII grossly intact, no focal motor or sensory deficits noted Skin: Intact with no visualized rashes Psych: Normal affect and mood ED course: 84-year-old female presents with episode of syncope. Vital signs upon arrival shows heart rate of 121, first vital signs within acceptable limits. EKG shows atrial fibrillation. Patient does not have a history of atrial fibrillation is not any anticoagulation medication. She is not on any rate controlling medications. Patient does not know exactly on the time of onset of her symptoms was. Laboratory evaluation obtained. CBC and marble coag panel unremarkable. Metabolic panel is negative. Urinalysis is negative. Patient does have a left lateral tongue avulsions. It's quite possible that patient suffered a seizure. She does not have any other symptoms to suggest seizure. It is unclear whether patient was postictal after the syncopal event given that event was unwitnessed. She does not have any lactic acidosis that would favor diagnosis of seizure. Nonetheless, patient has new onset atrial fibrillation she started on heparin. She is currently not in rapid ventricular rate after fluid administration. We will withhold any rate controlling medications at this time. EKG interpretation: Ventricular rate 104, atrial fibrillation rapid ventricular rate, care 70, QTC 405. No NH prolongation, no QTC prolongation, no ST or T-wave changes noted. EKG compared to 03/10/2019 showing no changes. There is findings of no onset atrial fibrillation. - Related Data Home Medications Medication Instructions Recorded Confirmed Cyanocobalamin [Vitamin B-12] 1,000 mcg PO DAILY 03/05/15 03/22/19 Multivitamins, Thera [Multivitamin 1 tab PO DAILY 03/05/15 03/22/19 (formulary)] Potassium 99 mg PO DAILY 03/05/15 03/22/19 Atorvastatin [Lipitor] 20 mg PO HS 03/11/15 03/22/19 Aspirin EC [Ecotrin Low Dose] 81 mg PO DAILY 02/10/19 03/22/19 Cetirizine HCl [Zyrtec] 10 mg PO DAILY PRN 02/10/19 03/22/19 Cholecalciferol [Vitamin D3 (25 2,000 unit PO DAILY 02/10/19 03/22/19 Mcg = 1000 Iu)] Clopidogrel [Plavix] 75 mg PO DAILY 02/10/19 03/22/19 Famotidine [Pepcid] 20 mg PO DAILY 02/10/19 03/22/19 Ferrous Sulfate [Iron (65 MG 325 mg PO DAILY 02/10/19 03/22/19 Elemental)] Linagliptin [Tradjenta] 5 mg PO DAILY 02/10/19 03/22/19 Allopurinol [Zyloprim] 100 mg PO DAILY 03/10/19 03/22/19 amLODIPine [Norvasc] 5 mg PO DAILY 03/10/19 03/22/19 L.acidoph,Paracasei, B.lactis 1 cap PO DAILY 03/22/19 03/22/19 [Probiotic] predniSONE See Taper PO DAILY 03/22/19 03/22/19 Previous Rx's Medication Instructions Recorded Budesonide-Formot 160-4.5 Mcg 2 puff INHALATION RT-BID #1 puff 03/12/19 [Symbicort 160-4.5 Mcg Inhaler] Ipratropium-Albuterol Nebulize 3 ml INHALATION RT-QID #120 03/12/19 [Duoneb 0.5 mg-3 mg/3 ml Soln] ampul.neb Isosorbide Mononitrate ER [Imdur] 30 mg PO DAILY #30 tab.er.24h 03/12/19 Allergies Allergy/AdvReac Type Severity Reaction Status Date / Time articaine HCl Allergy Rash/Hives Verified 03/22/19 19:21 [From Septocaine] codeine Allergy Rash/Hives Verified 03/22/19 19:21 epinephrine [From Septocaine] Allergy Rash/Hives Verified 03/22/19 19:21 erythromycin base Allergy Rash/Hives Verified 03/22/19 19:21 Iodinated Contrast- Oral and Allergy Rash/Hives Verified 03/22/19 19:21 IV Dye [Iodinated Contrast Media - IV Dye] morphine Allergy Nausea & Verified 03/22/19 19:21 Vomiting phenazopyridine HCl Allergy Rash/Hives Verified 03/22/19 19:21 [From Pyridium] streptomycin Allergy Rash/Hives Verified 03/22/19 19:21 Sulfa (Sulfonamide Allergy Rash/Hives Verified 03/22/19 19:21 Antibiotics) Review of Systems ROS Statement: Those systems with pertinent positive or pertinent negative responses have been documented in the HPI. ROS Other: All systems not noted in ROS Statement are negative. Past Medical History Past Medical History: Coronary Artery Disease (CAD), Diabetes Mellitus, Hyperlipidemia, Pneumonia Additional Past Medical History / Comment(s): gout History of Any Multi-Drug Resistant Organisms: None Reported Past Surgical History: Appendectomy, Heart Catheterization With Stent, Orthopedic Surgery Additional Past Surgical History / Comment(s): Rt foot hammer toe repair, breast biopsy, right leg and ankle surgery, cataract repair in 2008, colonoscopy/egd in 2017 Past Anesthesia/Blood Transfusion Reactions: No Reported Reaction Date of Last Stent Placement:: 02/06/2019 Past Psychological History: No Psychological Hx Reported Smoking Status: Former smoker Past Alcohol Use History: None Reported Past Drug Use History: None Reported - Past Family History Mother Family Medical History: Diabetes Mellitus General Exam Limitations: no limitations Course Vital Signs 03/22/19 03/22/19 03/22/19 19:01 21:12 21:57 Temperature 97.7 F Pulse Rate 121 H 97 89 Respiratory 18 20 20 Rate Blood Pressure 148/83 150/73 140/72 O2 Sat by Pulse 93 L 97 97 Oximetry Medical Decision Making - Lab Data Result diagrams: 03/22/19 18:59 03/22/19 18:59 Lab Results 03/22/19 03/22/19 03/22/19 Range/Units 18:59 18:59 18:59 WBC 9.3 (3.8-10.6) k/uL RBC 3.43 L (3.80-5.40) m/uL Hgb 9.5 L (11.4-16.0) gm/dL Hct 33.1 L (34.0-46.0) % MCV 96.5 D (80.0-100.0) fL MCH 27.8 (25.0-35.0) pg MCHC 28.8 L (31.0-37.0) g/dL RDW 15.3 (11.5-15.5) % Plt Count 372 (150-450) k/uL Neutrophils % 80 % Lymphocytes % 11 % Monocytes % 7 % Eosinophils % 1 % Basophils % 0 % Neutrophils # 7.5 (1.3-7.7) k/uL Lymphocytes # 1.0 (1.0-4.8) k/uL Monocytes # 0.6 (0-1.0) k/uL Eosinophils # 0.1 (0-0.7) k/uL Basophils # 0.0 (0-0.2) k/uL Hypochromasia Marked PT 11.5 (9.0-12.0) sec INR 1.1 (<1.2) APTT 18.9 L (22.0-30.0) sec Sodium 138 (137-145) mmol/L Potassium 4.0 (3.5-5.1) mmol/L Chloride 106 (98-107) mmol/L Carbon Dioxide 23 (22-30) mmol/L Anion Gap 9 mmol/L BUN 43 H (7-17) mg/dL Creatinine 1.32 H (0.52-1.04) mg/dL Est GFR (CKD-EPI)AfAm 43 (>60 ml/min/1.73 sqM) Est GFR (CKD-EPI)NonAf 37 (>60 ml/min/1.73 sqM) Glucose 134 H (74-99) mg/dL Calcium 9.6 (8.4-10.2) mg/dL Magnesium 2.1 (1.6-2.3) mg/dL Total Bilirubin 0.5 (0.2-1.3) mg/dL AST 24 (14-36) U/L ALT 33 (9-52) U/L Alkaline Phosphatase 37 L (38-126) U/L Troponin I (0.000-0.034) ng/mL Total Protein 6.3 (6.3-8.2) g/dL Albumin 3.6 (3.5-5.0) g/dL TSH 4.970 H (0.465-4.680) mIU/L Urine Color Urine Appearance (Clear) Urine pH (5.0-8.0) Ur Specific [place] (1.001-1.035) Urine Protein (Negative) Urine Glucose (UA) (Negative) Urine Ketones (Negative) Urine Blood (Negative) Urine Nitrite (Negative) Urine Bilirubin (Negative) Urine Urobilinogen (<2.0) mg/dL Ur Leukocyte Esterase (Negative) Urine RBC (0-5) /hpf Urine WBC (0-5) /hpf Ur Squamous Epith Cells (0-4) /hpf Urine Bacteria (None) /hpf Hyaline Casts (0-2) /lpf Urine Mucus (None) /hpf 03/22/19 03/22/19 Range/Units 18:59 20:00 WBC (3.8-10.6) k/uL RBC (3.80-5.40) m/uL Hgb (11.4-16.0) gm/dL Hct (34.0-46.0) % MCV (80.0-100.0) fL MCH (25.0-35.0) pg MCHC (31.0-37.0) g/dL RDW (11.5-15.5) % Plt Count (150-450) k/uL Neutrophils % % Lymphocytes % % Monocytes % % Eosinophils % % Basophils % % Neutrophils # (1.3-7.7) k/uL Lymphocytes # (1.0-4.8) k/uL Monocytes # (0-1.0) k/uL Eosinophils # (0-0.7) k/uL Basophils # (0-0.2) k/uL Hypochromasia PT (9.0-12.0) sec INR (<1.2) APTT (22.0-30.0) sec Sodium (137-145) mmol/L Potassium (3.5-5.1) mmol/L Chloride (98-107) mmol/L Carbon Dioxide (22-30) mmol/L Anion Gap mmol/L BUN (7-17) mg/dL Creatinine (0.52-1.04) mg/dL Est GFR (CKD-EPI)AfAm (>60 ml/min/1.73 sqM) Est GFR (CKD-EPI)NonAf (>60 ml/min/1.73 sqM) Glucose (74-99) mg/dL Calcium (8.4-10.2) mg/dL Magnesium (1.6-2.3) mg/dL Total Bilirubin (0.2-1.3) mg/dL AST (14-36) U/L ALT (9-52) U/L Alkaline Phosphatase (38-126) U/L Troponin I <0.012 (0.000-0.034) ng/mL Total Protein (6.3-8.2) g/dL Albumin (3.5-5.0) g/dL TSH (0.465-4.680) mIU/L Urine Color Light Yellow Urine Appearance Clear (Clear) Urine pH 5.0 (5.0-8.0) Ur Specific [place] 1.012 (1.001-1.035) Urine Protein Negative (Negative) Urine Glucose (UA) Negative (Negative) Urine Ketones Negative (Negative) Urine Blood Negative (Negative) Urine Nitrite Negative (Negative) Urine Bilirubin Negative (Negative) Urine Urobilinogen <2.0 (<2.0) mg/dL Ur Leukocyte Esterase Trace H (Negative) Urine RBC 2 (0-5) /hpf Urine WBC 4 (0-5) /hpf Ur Squamous Epith Cells <1 (0-4) /hpf Urine Bacteria Occasional H (None) /hpf Hyaline Casts 3 H (0-2) /lpf Urine Mucus Rare H (None) /hpf Disposition Clinical Impression: Syncope, Atrial fibrillation Disposition: ADMITTED IP TO THIS HOSP Condition: Fair Referrals: Josh Llanos MD [Primary Care Provider] - 1-2 days Decision Time: 22:04
[2019-03-22] MEDS ORDERED: HEPARIN SODIUM,PORCINE 5,000 UNIT/ML 1 ML VIAL IV ONE (19:57)
[2019-03-22] MEDS ORDERED: HEPARIN SODIUM,PORCINE 5,000 UNIT/ML 1 ML VIAL IV PRN (19:57)
[2019-03-22] MEDS ORDERED: HEPARIN SOD,PORK IN 0.45% NACL 25,000 UNIT in 0.45% NACL 1 250ML.BAG IV SCH (20:00)
[2019-03-22 20:01] LABS: MCV 96.5 fL (80.0-100.0)
[2019-03-22 20:04] LABS: Albumin 3.6 g/dL (3.5-5.0); Calcium 9.6 mg/dL (8.4-10.2); INR 1.1 (<1.2); Magnesium 2.1 mg/dL (1.6-2.3); Prothrombin Time 11.5 sec (9.0-12.0); Total Bilirubin 0.5 mg/dL (0.2-1.3); Total Protein 6.3 g/dL (6.3-8.2)
[2019-03-22 20:17] LABS: Appearance,Urine Clear (Clear); Bacteria,Urine Occasional /hpf; Bilirubin,Urine Negative (Negative); Blood,Urine Negative (Negative); Color,Urine Light Yellow; Glucose,Urine (UA) Negative (Negative); Hyaline Casts,Urine 3 /lpf (0-2); Ketones,Urine Negative (Negative); Leukocyte Esterase,Urine Trace (Negative); Mucus,Urine Rare /hpf; Nitrite,Urine Negative (Negative); Protein,Urine Negative (Negative); RBC,Urine 2 /hpf (0-5); Specific Gravity,Urine 1.012 (1.001-1.035); Squamous Epithelial Cell,Urine <1 /hpf (0-4); Urobilinogen,Urine <2.0 mg/dL (<2.0)
[2019-03-22 20:22] LABS: Partial Thromboplastin Time 18.9 sec (22.0-30.0)
--- NOTE | 2019-03-22 20:26 | CT ---
EXAMINATION TYPE: CT brain george stout DATE OF EXAM: 03/22/2019 COMPARISON: None HISTORY: Syncopal episode. Headache. Neck pain. CT DLP: 1316.3 mGycm Automated exposure control for dose reduction was used. TECHNIQUE: CT scan of the head and cervical spine are performed without contrast. FINDINGS: There is some cerebral cortical atrophy. 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 There is no mass effect nor midlin e shift. There is no sign of intracranial hemorrhage. There is 1 cm area of hypodensity in the right internal capsule consistent with old lacunar infarct. Cervical vertebra have normal alignment. There is degenerative disc space narrowing at C5-6 and C6-7 with spur formation. Facet joints are intact. There is multilevel mild hypertrophic facet arthropathy . The skull base is intact. I see no bony destructive process. IMPRESSION: Old mild chronic ischemic changes in the left frontal lobe and right internal capsule. No acute intra cranial abnormality. Spondylotic changes in the lower cervical spine. No fracture.
--- NOTE | 2019-03-22 20:40 | XR ---
EXAMINATION TYPE: XR pelvis AP view DATE OF EXAM: 03/22/2019 COMPARISON: NONE HISTORY: Pain TECHNIQUE: Single view FINDINGS: Pelvic ring is intact. Proximal femurs and hip joints are intact. There is vascular calcifi cation. Sacroiliac joints appear normal. IMPRESSION: Normal exam. No fracture seen.
[2019-03-22] MEDS ORDERED: ACETAMINOPHEN TAB 325 MG TAB PO PRN (22:05)
[2019-03-22] MEDS ORDERED: NALOXONE 0.4 MG/ML 1 ML VIAL IV PRN (22:05)
[2019-03-22] MEDS: SODIUM CHLORIDE 0.9% 1,000 ML IV SCH (22:30)
[2019-03-23] MEDS ORDERED: LORATADINE 10 MG TAB PO PRN (00:47)
--- NOTE | 2019-03-23 00:51 | P.HPIM ---
History of Present Illness H&P Date: 03/23/19 The patient is an 84-year-old female with a PMH of coronary artery disease, hypertension, hyperlipidemia, recently diagnosed pulmonary fibrosis, COPD, diabetes mellitus who presented to the ED after an episode of loss of consciousness. The patient notes that she was in her usual state of health at home and was working in her kitchen standing up, when she suddenly lost consciousness, with no preceding symptoms. She woke up after an unknown amount of time with her by her side. She was down for an unknown amount of time. The patient does note that after she regained consciousness she did have confusion for a brief period time, had bit her tongue on the left side, and had urinary incontinence. She denied chest pain, shortness of breath, palpitations, nausea, vomiting, or diaphoresis prior to or after the event. She notes that she has never previously lost consciousness. The patient also denied recent fever, chills, cough, or diarrhea. She underwent an extensive evaluation in the emergency room with pelvis x-ray that was unremarkable, head and C-spine CT which revealed chronic ischemic changes, chest x-ray with chronic parenchymal changes, and an EKG which showed A. fib with RVR at 104 bpm. Laboratory evaluation revealed a WBC count of 9.3, hemoglobin of 9.5, platelets 372, BUN 43, creatinine 1.32, glucose 134, TSH 4.97, troponin less than 0.012. The patient is admitted to the medicine service for further management. Review of Systems Pertinent positives and negatives as discussed in HPI, a complete review of systems was performed and all other systems are negative. Past Medical History Past Medical History: Coronary Artery Disease (CAD), Diabetes Mellitus, Hyperlipidemia, Pneumonia Additional Past Medical History / Comment(s): gout, anemia, pleural effusion History of Any Multi-Drug Resistant Organisms: None Reported Past Surgical History: Appendectomy, Heart Catheterization With Stent, Orthopedic Surgery Additional Past Surgical History / Comment(s): Rt foot hammer toe repair, breast biopsy, right leg and ankle surgery, cataract repair in 2008, colonoscopy/egd in 2016 Past Anesthesia/Blood Transfusion Reactions: No Reported Reaction Date of Last Stent Placement:: 02/06/2019 Past Psychological History: No Psychological Hx Reported Smoking Status: Former smoker Past Alcohol Use History: None Reported Additional Past Alcohol Use History / Comment(s): pt. stopped smoking in 1993 Past Drug Use History: None Reported - Past Family History Father History Unknown: Yes Mother Family Medical History: Diabetes Mellitus Medications and Allergies Home Medications Medication Instructions Recorded Confirmed Type Cyanocobalamin [Vitamin B-12] 1,000 mcg PO DAILY 03/05/15 03/22/19 History Multivitamins, Thera [Multivitamin 1 tab PO DAILY 03/05/15 03/22/19 History (formulary)] Potassium 99 mg PO DAILY 03/05/15 03/22/19 History Atorvastatin [Lipitor] 20 mg PO HS 03/11/15 03/22/19 History Aspirin EC [Ecotrin Low Dose] 81 mg PO DAILY 02/10/19 03/22/19 History Cetirizine HCl [Zyrtec] 10 mg PO DAILY PRN 02/10/19 03/22/19 History Cholecalciferol [Vitamin D3 (25 2,000 unit PO DAILY 02/10/19 03/22/19 History Mcg = 1000 Iu)] Clopidogrel [Plavix] 75 mg PO DAILY 02/10/19 03/22/19 History Famotidine [Pepcid] 20 mg PO DAILY 02/10/19 03/22/19 History Ferrous Sulfate [Iron (65 MG 325 mg PO DAILY 02/10/19 03/22/19 History Elemental)] Linagliptin [Tradjenta] 5 mg PO DAILY 02/10/19 03/22/19 History Allopurinol [Zyloprim] 100 mg PO DAILY 03/10/19 03/22/19 History amLODIPine [Norvasc] 5 mg PO DAILY 03/10/19 03/22/19 History Budesonide-Formot 160-4.5 Mcg 2 puff INHALATION RT-BID #1 puff 03/12/19 03/22/19 Rx [Symbicort 160-4.5 Mcg Inhaler] Ipratropium-Albuterol Nebulize 3 ml INHALATION RT-QID #120 03/12/19 03/22/19 Rx [Duoneb 0.5 mg-3 mg/3 ml Soln] ampul.neb Isosorbide Mononitrate ER [Imdur] 30 mg PO DAILY #30 tab.er.24h 03/12/19 03/22/19 Rx L.acidoph,Paracasei, B.lactis 1 cap PO DAILY 03/22/19 03/22/19 History [Probiotic] predniSONE See Taper PO DAILY 03/22/19 03/22/19 History Allergies Allergy/AdvReac Type Severity Reaction Status Date / Time articaine HCl Allergy Rash/Hives Verified 03/22/19 19:21 [From Septocaine] codeine Allergy Rash/Hives Verified 03/22/19 19:21 epinephrine [From Septocaine] Allergy Rash/Hives Verified 03/22/19 19:21 erythromycin base Allergy Rash/Hives Verified 03/22/19 19:21 Iodinated Contrast- Oral and Allergy Rash/Hives Verified 03/22/19 19:21 IV Dye [Iodinated Contrast Media - IV Dye] morphine Allergy Nausea & Verified 03/22/19 19:21 Vomiting phenazopyridine HCl Allergy Rash/Hives Verified 03/22/19 19:21 [From Pyridium] streptomycin Allergy Rash/Hives Verified 03/22/19 19:21 Sulfa (Sulfonamide Allergy Rash/Hives Verified 03/22/19 19:21 Antibiotics) Physical Exam Vitals: Vital Signs Temp Pulse Pulse Resp BP BP Pulse Ox 03/22/19 22:28 96 20 146/78 97 03/22/19 22:16 98.4 F 114 H 18 103/59 98 03/22/19 21:57 89 20 140/72 97 03/22/19 21:12 97 20 150/73 97 03/22/19 19:01 97.7 F 121 H 18 148/83 93 L Intake and Output 03/22/19 03/22/19 03/23/19 14:59 22:59 06:59 Other: # Voids 1 Weight 92.079 kg General: non toxic, no distress, appears at stated age, obese Derm: no unusual rashes/lesions no unusual ecchymoses, warm, dry Head: atraumatic, normocephalic, symmetric Eyes: EOMI, no lid lag, anicteric sclera, pupils equal round reactive to light ENT: Nose and ears atraumatic, no thrush, no pharyngeal erythema, Neck: No thyromegaly, no cervical lymphadenopathy, trachea midline, supple Mouth: no lip lesion, mucus membranes moist, left lateral tongue bite rik with bruising Cardiovascular: Irregularly irregular, no murmur, positive posterior tibial pulse bilateral, no edema, capillary refill less than 2 seconds Lungs: CTA bilateral, no rhonchi, no rales , no accessory muscle use Abdominal: soft, nontender to palpation, no guarding, no appreciable organomegaly, normal bowel sounds Ext: no gross muscle atrophy, muscle strength 4 out of 5 in all 4 extremities grossly, no contractures, Neuro: CN II-XI grossly intact, light touch intact all 4 extremities, finger to nose within normal limits, Psych: Alert, oriented, appropriate affect Results CBC & Chem 7: 03/22/19 18:59 03/22/19 18:59 Labs: Abnormal Lab Results - Last 24 Hours (Table) 03/22/19 03/22/19 03/22/19 Range/Units 18:59 18:59 18:59 RBC 3.43 L (3.80-5.40) m/uL Hgb 9.5 L (11.4-16.0) gm/dL Hct 33.1 L (34.0-46.0) % MCHC 28.8 L (31.0-37.0) g/dL APTT 18.9 L (22.0-30.0) sec BUN 43 H (7-17) mg/dL Creatinine 1.32 H (0.52-1.04) mg/dL Glucose 134 H (74-99) mg/dL Alkaline Phosphatase 37 L (38-126) U/L TSH 4.970 H (0.465-4.680) mIU/L Ur Leukocyte Esterase (Negative) Urine Bacteria (None) /hpf Hyaline Casts (0-2) /lpf Urine Mucus (None) /hpf 03/22/19 Range/Units 20:00 RBC (3.80-5.40) m/uL Hgb (11.4-16.0) gm/dL Hct (34.0-46.0) % MCHC (31.0-37.0) g/dL APTT (22.0-30.0) sec BUN (7-17) mg/dL Creatinine (0.52-1.04) mg/dL Glucose (74-99) mg/dL Alkaline Phosphatase (38-126) U/L TSH (0.465-4.680) mIU/L Ur Leukocyte Esterase Trace H (Negative) Urine Bacteria Occasional H (None) /hpf Hyaline Casts 3 H (0-2) /lpf Urine Mucus Rare H (None) /hpf Thrombosis Risk Factor Assmnt - Choose All That Apply Each Factor Represents 1 point: Obesity (BMI >25) Other Risk Factors: Yes Each Risk Factor Represents 3 Points: Age 75 years or older Thrombosis Risk Factor Assessment Total Risk Factor Score: 4 Thrombosis Risk Factor Assessment Level: Moderate Risk Assessment and Plan Plan: Loss of consciousness, possibly secondary to seizure vs cardiogenic in setting of newly diagnosed Afib w/ RVR -Fall, seizure, aspiration precaution -Consult neurology and cardiology -C/w Heparin infusion -Echocardiogram -Cardiac monitoring Normocytic anemia -Worse from baseline -Obtain anemia workup -Monitor CBC CKD stage III -Monitor BMP Diabetes mellitus -MARYSOL -Blood glucose monitoring Chronic conditions: Pulmonary fibrosis, coronary artery disease, hypertension, hyperlipidemia, COPD -Continue with home meds DVT prophylaxis -Heparin infusion The patient is admitted with an anticipated less than 2 midnight stay for evaluation of loss of consciousness. CODE STATUS:Full Code Discussed with: Patient Anticipated discharge date: 03/24/[address]: Home A total of 40 minutes was spent on the care of this complex patient more than 50% of the time was spent in counseling and care coordination.
[2019-03-23 06:21] LABS: Glucose,Whole Blood 82 mg/dL (75-99)
[2019-03-23] MEDS: INSULIN ASPART (NovoLOG) 100 UNIT/ML VIAL SQ SCH ×3 (06:58→17:33)
[2019-03-23 07:17] LABS: HCT 32.5 % (34.0-46.0); HGB 9.3 gm/dL (11.4-16.0); Hypochromasia Marked; MCH 28.7 pg (25.0-35.0); MCHC 28.8 g/dL (31.0-37.0); MCV 99.6 fL (80.0-100.0); Macrocytosis Slight; Mean Platelet Volume 7.9; Platelet Count 371 k/uL (150-450); RBC 3.26 m/uL (3.80-5.40); RDW 15.4 % (11.5-15.5); WBC 12.3 k/uL (3.8-10.6)
[2019-03-23 07:25] LABS: Calcium 9.1 mg/dL (8.4-10.2)
--- NOTE | 2019-03-23 08:12 | P.CRDCN ---
History of Present Illness Consult date: 03/23/19 Requesting physician: Nataly Avila Consult reason: sycope, atrial fibrillation Chief complaint: Syncope History of present illness: This is a pleasant 84-year-old female with past medical history significant for coronary artery disease and prior stenting which was performed in February of this year at [facility], she follows with Dr. Villeda out of [place], she also has history of any kidney disease, hypertension, hyperlipidemia, chronic anemia, recent hospitalization with symptoms of shortness of breath earlier this month, at PE was ruled out on that admission. She does have history of recent pneumonia. She presents to the hospital on this occasion following a syncopal episode. Patient states she had just used her albuterol inhaler, went to the sink to rinse out her mouth, all of a sudden she could not breathe, the next thing she recalls is waking up on the floor. She does state that she had a lozenge in her mouth and is unsure if perhaps she swallowed that. She did bite her tongue. Overall the patient states she's been doing fairly well but she has had persistent exertional shortness of breath. She had a recent office visit with her executive assistant to general counsel, she was told at that time that everything looked good. EKG on presentation here showed atrial fibrilla tion with moderately rapid ventricular response. Patient has no prior documented history of A. fib. On her recent admission to the hospital she was in a normal sinus rhythm for that duration. Chest x-ray shows chronic coarse pulmonary interstitial infiltrates consistent with acute and chronic int erstitial pneumonia. CAT scan of the head and spine revealed old mild chronic ischemic changes in the left frontal lobe no acute intracranial abnormality. No fracture. Pelvic x-ray was normal. Blood pressure on arrival here 148/80 with a heart rate of 120, 93% on room air. Blood pressure 112/70 with a heart rate in the 80s this morning, 93% on 2 L of oxygen. Patient continues to be in atrial fibrillation this morning. White blood cell count on admission 9.3, hemoglobin 9.5, platelet count 372. Sodium 138, potassium 4.0, BUN 43 and creatinine 1.3. Troponin 0.012. TSH level 4.9. White blood cell count this morning 12.3, hemoglobin 9.3, platelet count 371. Sodium 140, potassium 4.0, BUN 39 and creatinine 1.2. At the time of my examination this morning, the patient states she feels tired, no other complaints. Past Medical History Past Medical History: Coronary Artery Disease (CAD), Diabetes Mellitus, Hyperlipidemia, Pneumonia Additional Past Medical History / Comment(s): gout, anemia, pleural effusion History of Any Multi-Drug Resistant Organisms: None Reported Past Surgical History: Appendectomy, Heart Catheterization With Stent, Orthopedic Surgery Additional Past Surgical History / Comment(s): Rt foot hammer toe repair, breast biopsy, right leg and ankle surgery, cataract repair in 2008, colonoscopy/egd in 2016 Past Anesthesia/Blood Transfusion Reactions: No Reported Reaction Date of Last Stent Placement:: 02/06/2019 Past Psychological History: No Psychological Hx Reported Smoking Status: Former smoker Past Alcohol Use History: None Reported Additional Past Alcohol Use History / Comment(s): pt. stopped smoking in 1993 Past Drug Use History: None Reported - Past Family History Father History Unknown: Yes Mother Family Medical History: Diabetes Mellitus Medications and Allergies Home Medications Medication Instructions Recorded Confirmed Type Cyanocobalamin [Vitamin B-12] 1,000 mcg PO DAILY 03/05/15 03/22/19 History Multivitamins, Thera [Multivitamin 1 tab PO DAILY 03/05/15 03/22/19 History (formulary)] Potassium 99 mg PO DAILY 03/05/15 03/22/19 History Atorvastatin [Lipitor] 20 mg PO HS 03/11/15 03/22/19 History Aspirin EC [Ecotrin Low Dose] 81 mg PO DAILY 02/10/19 03/22/19 History Cetirizine HCl [Zyrtec] 10 mg PO DAILY PRN 02/10/19 03/22/19 History Cholecalciferol [Vitamin D3 (25 2,000 unit PO DAILY 02/10/19 03/22/19 History Mcg = 1000 Iu)] Clopidogrel [Plavix] 75 mg PO DAILY 02/10/19 03/22/19 History Famotidine [Pepcid] 20 mg PO DAILY 02/10/19 03/22/19 History Ferrous Sulfate [Iron (65 MG 325 mg PO DAILY 02/10/19 03/22/19 History Elemental)] Linagliptin [Tradjenta] 5 mg PO DAILY 02/10/19 03/22/19 History Allopurinol [Zyloprim] 100 mg PO DAILY 03/10/19 03/22/19 History amLODIPine [Norvasc] 5 mg PO DAILY 03/10/19 03/22/19 History Budesonide-Formot 160-4.5 Mcg 2 puff INHALATION RT-BID #1 puff 03/12/19 03/22/19 Rx [Symbicort 160-4.5 Mcg Inhaler] Ipratropium-Albuterol Nebulize 3 ml INHALATION RT-QID #120 03/12/19 03/22/19 Rx [Duoneb 0.5 mg-3 mg/3 ml Soln] ampul.neb Isosorbide Mononitrate ER [Imdur] 30 mg PO DAILY #30 tab.er.24h 03/12/19 03/22/19 Rx L.acidoph,Paracasei, B.lactis 1 cap PO DAILY 03/22/19 03/22/19 History [Probiotic] predniSONE See Taper PO DAILY 03/22/19 03/22/19 History Allergies Allergy/AdvReac Type Severity Reaction Status Date / Time articaine HCl Allergy Rash/Hives Verified 03/22/19 19:21 [From Septocaine] codeine Allergy Rash/Hives Verified 03/22/19 19:21 epinephrine [From Septocaine] Allergy Rash/Hives Verified 03/22/19 19:21 erythromycin base Allergy Rash/Hives Verified 03/22/19 19:21 Iodinated Contrast- Oral and Allergy Rash/Hives Verified 03/22/19 19:21 IV Dye [Iodinated Contrast Media - IV Dye] morphine Allergy Nausea & Verified 03/22/19 19:21 Vomiting phenazopyridine HCl Allergy Rash/Hives Verified 03/22/19 19:21 [From Pyridium] streptomycin Allergy Rash/Hives Verified 03/22/19 19:21 Sulfa (Sulfonamide Allergy Rash/Hives Verified 03/22/19 19:21 Antibiotics) Physical Exam Vitals: Vital Signs Temp Pulse Pulse Resp BP BP Pulse Ox 03/23/19 04:03 93 L 03/23/19 04:00 98.3 F 84 17 112/74 03/23/19 00:31 98 F 114 H 18 103/59 98 03/22/19 22:28 96 20 146/78 97 03/22/19 22:16 98.4 F 114 H 18 103/59 98 03/22/19 21:57 89 20 140/72 97 03/22/19 21:12 97 20 150/73 97 03/22/19 19:01 97.7 F 121 H 18 148/83 93 L Intake and Output 03/22/19 03/23/19 03/23/19 22:59 06:59 14:59 Output Total 300 Balance -300 Output: Urine 300 Other: Voiding Method Toilet # Voids 1 Weight 92.079 kg 91.9 kg PHYSICAL EXAMINATION: GENERAL: 84-year-old female in no acute distress at the time of my examination HEENT: Head is atraumatic, normocephalic. Pupils equal, round. Sclera anicteric. Conjunctiva are clear. Mucous membranes of the mouth are moist. Neck is supple. There is no elevated jugular venous pressure. No carotid bruit is heard. HEART EXAMINATION: Heart S1 and S2 irregularly irregular CHEST EXAMINATION: Lungs are clear to auscultation and precussion. No chest wall tenderness is noted on palpation or with deep breathing. ABDOMEN: Soft, nontender. Bowel sounds are heard. No organomegaly noted. EXTREMITIES: 2+ peripheral pulses with no evidence of peripheral edema and no calf tenderness noted. NEUROLOGIC patient is awake, alert and oriented 3 . . Results 03/23/19 06:31 03/23/19 06:31 Cardiac Enzymes 03/22/19 03/22/19 Range/Units 18:59 18:59 AST 24 (14-36) U/L Troponin I <0.012 (0.000-0.034) ng/mL Coagulation 03/22/19 03/23/19 03/23/19 Range/Units 18:59 01:09 06:31 PT 11.5 (9.0-12.0) sec APTT 18.9 L 65.9 H 53.8 H (22.0-30.0) sec CBC 03/22/19 03/23/19 Range/Units 18:59 06:31 WBC 9.3 12.3 H (3.8-10.6) k/uL RBC 3.43 L 3.26 L (3.80-5.40) m/uL Hgb 9.5 L 9.3 L (11.4-16.0) gm/dL Hct 33.1 L 32.5 L (34.0-46.0) % Plt Count 372 371 (150-450) k/uL Comprehensive Metabolic Panel 03/22/19 03/23/19 Range/Units 18:59 06:31 Sodium 138 140 (137-145) mmol/L Potassium 4.0 4.0 (3.5-5.1) mmol/L Chloride 106 108 H (98-107) mmol/L Carbon Dioxide 23 26 (22-30) mmol/L BUN 43 H 39 H (7-17) mg/dL Creatinine 1.32 H 1.25 H (0.52-1.04) mg/dL Glucose 134 H 78 (74-99) mg/dL Calcium 9.6 9.1 (8.4-10.2) mg/dL AST 24 (14-36) U/L ALT 33 (9-52) U/L Alkaline Phosphatase 37 L (38-126) U/L Total Protein 6.3 (6.3-8.2) g/dL Albumin 3.6 (3.5-5.0) g/dL Current Medications Generic Name Dose Route Start Last Admin Trade Name Freq PRN Reason Stop Dose Admin Acetaminophen 650 mg 03/22/19 22:05 Tylenol Tab PO Q6HR PRN Mild Pain or Fever > 100.5 Allopurinol 100 mg 03/23/19 09:00 Zyloprim PO DAILY [facility] Amlodipine Besylate 5 mg 03/23/19 09:00 Norvasc PO DAILY [facility] Aspirin 81 mg 03/23/19 09:00 Aspirin PO DAILY [facility] Atorvastatin Calcium 20 mg 03/23/19 21:00 Lipitor PO HS [facility] Budesonide/Formoterol Fumarate 2 puff 03/23/19 08:00 Symbicort 160-4.5 Mcg Inhaler INHALATION RT-BID [facility] Cholecalciferol 2,000 unit 03/23/19 09:00 Vitamin D3 (25 Mcg = 1000 Iu) PO DAILY [facility] Clopidogrel Bisulfate 75 mg 03/23/19 09:00 Plavix PO DAILY [facility] Cyanocobalamin 1,000 mcg 03/23/19 09:00 Vitamin B-12 PO DAILY [facility] Famotidine 20 mg 03/23/19 09:00 Pepcid PO DAILY [facility] Ferrous Sulfate 325 mg 03/23/19 09:00 Feosol PO DAILY [facility] Heparin Sodium (Porcine) 0 unit 03/22/19 19:57 Heparin IV PER PROTOCOL PRN Low PTT Protocol Heparin Sodium/Sodium Chloride 250 mls @ 10 mls/hr 03/22/19 20:00 03/22/19 20:33 25,000 unit/ Sodium Chloride IV 10.86 units/kg/hr .Q24H [facility]ACK[facility]IE 10 mls/hr Administration Protocol 10.86 UNITS/KG/HR Sodium Chloride 1,000 mls @ 80 mls/hr 03/22/19 22:15 03/22/19 22:30 Saline 0.9% IV 80 mls/hr .[id number] [facility]ACKENZIE Administration Insulin Aspart 0 unit 03/23/19 07:30 03/23/19 06:58 Novolog SQ Not Given AC-TID [facility] Protocol Isosorbide Mononitrate 30 mg 03/23/19 09:00 Imdur PO DAILY [facility] Loratadine 10 mg 03/23/19 00:47 Claritin PO DAILY PRN Allergy Symptoms Multivitamins 1 each 03/23/19 09:00 Theragran PO DAILY [facility] Naloxone HCl 0.2 mg 03/22/19 22:05 Narcan IV Q2M PRN Opioid Reversal Prednisone 10 mg 03/23/19 09:00 PO DAILY [facility] Intake and Output 03/22/19 03/23/19 03/23/19 22:59 06:59 14:59 Output Total 300 Balance -300 Output: Urine 300 Other: Voiding Method Toilet # Voids 1 Weight 92.079 kg 91.9 kg 03/23/19 06:31 03/23/19 06:31 EKG Interpretations (text) EKG shows atrial fibrillation with moderately rapid ventricular response Assessment and Plan Plan: Assessment and plan #1 syncope, rule out cardiac causes #2 coronary artery disease with recent stent placement in February of this year at [facility] #3Chronic kidney disease #4 hypertension #5 hyperlipidemia #6 chronic anemia #7 recent pneumonia, chest x-ray on this admission suggests possible pneumonia. #8 atrial fibrillation with moderately rapid ventricular response, new onset Plan Patient had a recent admission to the hospital earlier this month, VQ scan was performed on that admission which was low probability for PE. An echocardiogram with Doppler study was also performed which was done on March 11 revealed an ejection fraction of 55-60%. We will continue to monitor the patient for any significant tachycardia or bradycardia arrhythmias, or evidence of pauses. Check orthostatics every shift. Neurology is also been consulted. Patient has been educated regarding the importance of anticoagulation for stroke prevention. She is currently on IV heparin. Patient is on dual antiplatelet therapy in the form of aspirin and Plavix because of the recent stenting. We will look at her coverage for Eliquis, if the patient is covered we will initiate Eliquis along with continuing the Plavix, and discontinue the aspirin. Further recommendations to follow. DNP note has been reviewed, I agree with a documented findings and plan of care. Patient was seen and examined.
[2019-03-23] MEDS: SYMBICORT 160-4.5 MCG INHALER INHALATION SCH ×2 (08:36→19:16)
[2019-03-23] MEDS: MULTIVITAMINS, THERA 1 EACH TAB PO SCH (08:39)
[2019-03-23] MEDS: CHOLECALCIFEROL 1,000 UNIT TAB PO SCH (08:39)
[2019-03-23] MEDS: CLOPIDOGREL 75 MG TAB PO SCH (08:39)
[2019-03-23] MEDS: CYANOCOBALAMIN 500 MCG TAB PO SCH (08:39)
[2019-03-23] MEDS: ISOSORBIDE MONONITRATE ER 30 MG TAB.ER.24H PO SCH (08:40)
[2019-03-23] MEDS: FAMOTIDINE 20 MG TAB PO SCH (08:40)
[2019-03-23] MEDS: predniSONE 10 MG TAB PO SCH (08:40)
[2019-03-23] MEDS: amLODIPine 5 MG TAB PO SCH (08:40)
[2019-03-23] MEDS: FERROUS SULFATE 325 MG TAB PO SCH (08:40)
[2019-03-23] MEDS: APIXABAN 2.5 MG TABLET PO SCH ×2 (08:40→20:29)
[2019-03-23] MEDS: ALLOPURINOL 100 MG TAB PO SCH (08:40)
[2019-03-23] MEDS ORDERED: ASPIRIN 81 MG PO SCH (09:00)
[2019-03-23 10:36] LABS: Reticulocyte % 3.7 % (0.5-2.0)
--- NOTE | 2019-03-23 11:30 | ECHOF ---
Referral Reason:new onset afib MEASUREMENTS -------- HEIGHT: 157.5 cm WEIGHT: 91.6 kg BP: 112/74 RVIDd: 2.5 cm (< 3.3) IVSd: 1.1 cm (0.6 - 1.1) LVIDd: 3.6 cm (3.9 - 5.3) LVPWd: 1.5 cm (0.6 - 1.1) IVSs: 1.8 cm LVIDs: 2.3 cm LVPWs: 1.7 cm LAESV Index (A-L): 28.37 ml/m Ao Diam: 3.1 cm (2.0 - 3.7) AV Cusp: 1.5 cm (1.5 - 2.6) LA Diam: 3.5 cm (2.7 - 3.8) MV EXCURSION: 12.148 mm (> 18.000) MV EF SLOPE: 59 mm/s (70 - 150) EPSS: 0.8 cm RAP: 5.00 mmHg RVSP: 7.56 mmHg FINDINGS -------- Sinus rhythm. This was a technically adequate study. The left ventricular size is normal. There is mild concentric left ventricular hypertrophy. Overa ll left ventricular systolic function is normal with, an EF between 55 - 60 %. The right ventricle is normal in size. The left atrial size is normal. Normal LA size by volume 22+/-6 ml/m2. The right atrial size is normal. The aortic valve is trileaflet and appears structurally normal. The mitral valve is normal. The mitral valve leaflets are mildly thickened. Mild mitral annular c alcification present. Mild mitral regurgitation is present. The tricuspid valve appears structurally normal. Trace tricuspid regurgitation present. Right adrienne tricular systolic pressure is normal at < 35 mmHg. There is no pulmonic regurgitation present. The aortic root size is normal. Normal inferior vena cava with normal inspiratory collapse consistent with estimated right atrial pre ssure of 5 mmHg. There is no pericardial effusion. CONCLUSIONS -------- 1. Sinus rhythm. 2. This was a technically adequate study. 3. The left ventricular size is normal. 4. There is mild concentric left ventricular hypertrophy. 5. Overall left ventricular systolic function is normal with, an EF between 55 - 60 %. 6. The right ventricle is normal in size. 7. The left atrial size is normal. 8. Normal LA size by volume 22+/-6 ml/m2. 9. The right atrial size is normal. 10. The aortic valve is trileaflet and appears structurally normal. 11. The mitral valve is normal. 12. The mitral valve leaflets are mildly thickened. 13. Mild mitral annular calcification present. 14. Mild mitral regurgitation is present. 15. The tricuspid valve appears structurally normal. 16. Trace tricuspid regurgitation present. 17. Right ventricular systolic pressure is normal at < 35 mmHg. 18. There is no pulmonic regurgitation present. 19. The aortic root size is normal. 20. Normal inferior vena cava with normal inspiratory collapse consistent with estimated right atrial pressure of 5 mmHg. 21. There is no pericardial effusion. LAUNDRY LABORER: Leidy Neves RDCS
--- NOTE | 2019-03-23 11:37 | P.CNNES ---
History of Present Illness Consult date: 03/23/19 Requesting physician: Nataly Avila Reason for Consult: LOC possible seizure Chief complaint: Passed out History of Present Illness: This is an 84 RH female h/o CAD, HTN, DM, HL, COPD and pulmonary fibrosis who presented to ER for loss of consciousness. Patient was reportedly standing in the kitchen when suddenly she felt like she could not breathe. Then she felt a "rendon of blood" to the head and suddenly lost consciousness. The event was not witnessed at first, but patient states that her was entering the kitchen as she went down. She did fall to the floor. No report of head injury. Exaction duration also unknown, but patient states that it must have been less than a minute. There is medical documentation about post-ictal confusion, but upon further conversation with patient, it is revealed that patient was "confused" about the fact that she had passed out and was on the floor when she woke up. She was immediately aware of her surroundings and her next to her upon awakening, i.e. not post-ictal confusion. She did bite the left side of her tongue. There is medical report that patient had urinary incontinence, but patient emphatically negates the above. While in the ER, she was found to be in afib with RVR, which is apparently new. Cardiology was consulted. Patient had never had a seizure in the past. Denies h/o head trauma or [employer] infection. Denies current focal neuro c/o. Review of Systems 14-point ROS performed and as per HPI. Neurologically, patient denies decreased level or loss of consciousness, headache, seizure, changes in vision, diplopia, amaurosis, changes in hearing, facial droop, ptosis, vertigo, hearing loss, tinnitus, dysarthria, dysphagia, aphasia, other focal numbness/weakness not mentioned above, tremors, bowel/bladder incontinence or ataxia. Past Medical History Past Medical History: Coronary Artery Disease (CAD), Diabetes Mellitus, Hyperlipidemia, Pneumonia Additional Past Medical History / Comment(s): gout, anemia, pleural effusion History of Any Multi-Drug Resistant Organisms: None Reported Past Surgical History: Appendectomy, Heart Catheterization With Stent, Orthopedic Surgery Additional Past Surgical History / Comment(s): Rt foot hammer toe repair, breast biopsy, right leg and ankle surgery, cataract repair in 2008, colonoscopy/egd in 2017 Past Anesthesia/Blood Transfusion Reactions: No Reported Reaction Date of Last Stent Placement:: 02/06/2019 Past Psychological History: No Psychological Hx Reported Smoking Status: Former smoker Past Alcohol Use History: None Reported Additional Past Alcohol Use History / Comment(s): pt. stopped smoking in 1993 Past Drug Use History: None Reported - Past Family History Father History Unknown: Yes Mother Family Medical History: Diabetes Mellitus Medications and Allergies Home Medications Medication Instructions Recorded Confirmed Type Cyanocobalamin [Vitamin B-12] 1,000 mcg PO DAILY 03/05/15 03/22/19 History Multivitamins, Thera [Multivitamin 1 tab PO DAILY 03/05/15 03/22/19 History (formulary)] Potassium 99 mg PO DAILY 03/05/15 03/22/19 History Atorvastatin [Lipitor] 20 mg PO HS 03/11/15 03/22/19 History Aspirin EC [Ecotrin Low Dose] 81 mg PO DAILY 02/10/19 03/22/19 History Cetirizine HCl [Zyrtec] 10 mg PO DAILY PRN 02/10/19 03/22/19 History Cholecalciferol [Vitamin D3 (25 2,000 unit PO DAILY 02/10/19 03/22/19 History Mcg = 1000 Iu)] Clopidogrel [Plavix] 75 mg PO DAILY 02/10/19 03/22/19 History Famotidine [Pepcid] 20 mg PO DAILY 02/10/19 03/22/19 History Ferrous Sulfate [Iron (65 MG 325 mg PO DAILY 02/10/19 03/22/19 History Elemental)] Linagliptin [Tradjenta] 5 mg PO DAILY 02/10/19 03/22/19 History Allopurinol [Zyloprim] 100 mg PO DAILY 03/10/19 03/22/19 History amLODIPine [Norvasc] 5 mg PO DAILY 03/10/19 03/22/19 History Budesonide-Formot 160-4.5 Mcg 2 puff INHALATION RT-BID #1 puff 03/12/19 03/22/19 Rx [Symbicort 160-4.5 Mcg Inhaler] Ipratropium-Albuterol Nebulize 3 ml INHALATION RT-QID #120 03/12/19 03/22/19 Rx [Duoneb 0.5 mg-3 mg/3 ml Soln] ampul.neb Isosorbide Mononitrate ER [Imdur] 30 mg PO DAILY #30 tab.er.24h 03/12/19 03/22/19 Rx L.acidoph,Paracasei, B.lactis 1 cap PO DAILY 03/22/19 03/22/19 History [Probiotic] predniSONE See Taper PO DAILY 03/22/19 03/22/19 History Allergies Allergy/AdvReac Type Severity Reaction Status Date / Time articaine HCl Allergy Rash/Hives Verified 03/22/19 19:21 [From Septocaine] codeine Allergy Rash/Hives Verified 03/22/19 19:21 epinephrine [From Septocaine] Allergy Rash/Hives Verified 03/22/19 19:21 erythromycin base Allergy Rash/Hives Verified 03/22/19 19:21 Iodinated Contrast- Oral and Allergy Rash/Hives Verified 03/22/19 19:21 IV Dye [Iodinated Contrast Media - IV Dye] morphine Allergy Nausea & Verified 03/22/19 19:21 Vomiting phenazopyridine HCl Allergy Rash/Hives Verified 03/22/19 19:21 [From Pyridium] streptomycin Allergy Rash/Hives Verified 03/22/19 19:21 Sulfa (Sulfonamide Allergy Rash/Hives Verified 03/22/19 19:21 Antibiotics) Physical Examination - Vital Signs Vital Signs: Vital Signs Temp Pulse Pulse Resp BP BP Pulse Ox 03/23/19 08:00 90 18 119/57 98 03/23/19 04:03 93 L 03/23/19 04:00 98.3 F 84 17 112/74 03/23/19 00:31 98 F 114 H 18 103/59 98 03/22/19 22:28 96 20 146/78 97 03/22/19 22:16 98.4 F 114 H 18 103/59 98 03/22/19 21:57 89 20 140/72 97 03/22/19 21:12 97 20 150/73 97 03/22/19 19:01 97.7 F 121 H 18 148/83 93 L Intake and Output 03/22/19 03/23/19 03/23/19 22:59 06:59 14:59 Output Total 300 Balance -300 Output: Urine 300 Other: Voiding Method Toilet Toilet # Voids 1 Weight 92.079 kg 91.9 kg Gen NAD Pleasant and cooperative HEENT NCAT Sclera without icterus +tongue lac o/w O/P clear Neck Supple No carotid bruit Cor RRR no m/r/g Lungs CTAB Abd Soft NTND +BS Ext Warm to touch No edema Neuro MS A+Ox4 Normal fluency Able to follow all commands CN PERRL VFF no APD EOMI no nystagmus or JOI No facial asymmetry Masseter's symmetric Hearing intact to normal voice bilaterally Speech not dysarthric Equal elevation of palate Tongue midline Sym shrug and SCM bilaterally Motor Normal bulk/tone No pronator or tremors Strength 5/5 sym throughout Sens Intact to LT x4 No neglect or extinction Coord No dysmetria on FTN bilaterally DTRs 2+/4 sym throughout Toes downgoing bilaterally No clonus at achilles Gait Deferred Results - Laboratory Findings CBC and BMP: 03/23/19 06:31 03/23/19 06:31 Abnormal Lab Findings: Abnormal Labs 03/22/19 03/22/19 03/22/19 18:59 18:59 18:59 WBC RBC 3.43 L Hgb 9.5 L Hct 33.1 L MCHC 28.8 L Retic Count APTT 18.9 L Chloride BUN 43 H Creatinine 1.32 H Glucose 134 H Alkaline Phosphatase 37 L TSH 4.970 H Ur Leukocyte Esterase Urine Bacteria Hyaline Casts Urine Mucus 03/22/19 03/23/19 03/23/19 20:00 01:09 06:31 WBC 12.3 H RBC 3.26 L Hgb 9.3 L Hct 32.5 L MCHC 28.8 L Retic Count 3.7 H APTT 65.9 H Chloride BUN Creatinine Glucose Alkaline Phosphatase TSH Ur Leukocyte Esterase Trace H Urine Bacteria Occasional H Hyaline Casts 3 H Urine Mucus Rare H 03/23/19 03/23/19 06:31 06:31 WBC RBC Hgb Hct MCHC Retic Count APTT 53.8 H Chloride 108 H BUN 39 H Creatinine 1.25 H Glucose Alkaline Phosphatase TSH Ur Leukocyte Esterase Urine Bacteria Hyaline Casts Urine Mucus - Diagnostic Findings Additional findings: CT Head wo cont 03/22/19. No ICH. Old mild chronic ischemic changes in the left frontal area and right IC. Nil acute. I have reviewed neuroimages myself. Assessment and Plan Assessment: Loss of consicousness with tongue biting in the setting of new-onset afib with RVR, suspect convulsive syncope that would be a more logical explanation rather than new-onset rapid afib AND new-onset epilepsy. Plan: -EEG -No AED unless EEG shows EPD -Cardiology consulted. Appreciate input -Seizure precautions -As I do not have a primary neurological diagnosis, any activity restriction such as driving will be deferred to cardiology given her new-onset afib with RVR -If patient were to have a 2nd clinical seizure with obvious precipitant, then she would need further work-up and be considered for AED therapy -d/w patient in detail. All questions answered. Thank you for this consultation. Please call with ?. Time with Patient: Greater than 30 (Time spent in direct patient care, greater than 50% of which was spent in [id number] counseling and coordination of care: 70 minutes)
[2019-03-23 11:47] LABS: Glucose,Whole Blood 97 mg/dL (75-99)
[2019-03-23 14:03] LABS: Folate, Serum 21.6 ng/mL; Iron Saturation 4.61 (12.00-45.00)
--- NOTE | 2019-03-23 15:48 | EEG ---
ELECTROENCEPHALOGRAM REPORT DATE OF TESTIN03/23/2019. CLINICAL PROBLEM: Episode of loss of consciousness with tongue-biting. EEG was requested to rule out epileptic activity. TYPE OF RECORDING: Bedside tracing using the 10-20 international electrode placement system. No sedation was given prior to the beginning of this recording. FINDINGS: At the beginning of this recording, there is a symmetric posterior alpha rhythm of 8-9 Hz that attenuates on eye-opening and returns upon eye closure. Photic stimulation elicits a symmetric driving response. Hyperventilation is not performed at this recording. There is no definitive sleep architecture seen. There is no background asymmetry, ictal or interictal patterns appreciated. IMPRESSION: This is a normal awake electroencephalogram without background asymmetry or epileptiform discharges. Clinical correlation is advised. MMODL / IJN: [id number] / [facility]ITALJustin
--- NOTE | 2019-03-23 16:19 | P.PN ---
Progress Note - Text Progress Note Date: 03/23/19 EEG normal. Do not suggest AED therapy. Suspect convulsive syncope rather than new-onset epilepsy. Activity restrictions deferred to cardiology given new-onset afib with RVR. d/w patient/family at bedside at length. All questions answered. No further inpatient neuro recs at this time. Will revisit prn. Please call with new ?.
[2019-03-23 16:39] LABS: Glucose,Whole Blood 148 mg/dL (75-99)
[2019-03-23] MEDS: SODIUM CHLORIDE 0.9% 1,000 ML IV SCH (17:33)
[2019-03-23] MEDS: ATORVASTATIN 20 MG TAB PO SCH (20:29)
[2019-03-23 20:30] LABS: Glucose,Whole Blood 150 mg/dL (75-99)
[2019-03-24 06:27] LABS: Glucose,Whole Blood 88 mg/dL (75-99)
[2019-03-24] MEDS: INSULIN ASPART (NovoLOG) 100 UNIT/ML VIAL SQ SCH ×3 (06:35→19:04)
[2019-03-24] MEDS: SODIUM CHLORIDE 0.9% 1,000 ML IV SCH ×2 (06:36→19:03)
[2019-03-24] MEDS: SYMBICORT 160-4.5 MCG INHALER INHALATION SCH ×2 (08:27→19:19)
[2019-03-24] MEDS: CLOPIDOGREL 75 MG TAB PO SCH (09:14)
[2019-03-24] MEDS: predniSONE 10 MG TAB PO SCH (09:14)
[2019-03-24] MEDS: APIXABAN 2.5 MG TABLET PO SCH ×2 (09:15→20:21)
[2019-03-24] MEDS: FERROUS SULFATE 325 MG TAB PO SCH (09:15)
[2019-03-24] MEDS: FAMOTIDINE 20 MG TAB PO SCH (09:15)
[2019-03-24] MEDS: MULTIVITAMINS, THERA 1 EACH TAB PO SCH (09:15)
[2019-03-24] MEDS: ISOSORBIDE MONONITRATE ER 30 MG TAB.ER.24H PO SCH (09:15)
[2019-03-24] MEDS: ALLOPURINOL 100 MG TAB PO SCH (09:15)
[2019-03-24] MEDS: CHOLECALCIFEROL 1,000 UNIT TAB PO SCH (09:15)
[2019-03-24] MEDS: CYANOCOBALAMIN 500 MCG TAB PO SCH (09:15)
[2019-03-24] MEDS: amLODIPine 5 MG TAB PO SCH (09:15)
[2019-03-24 12:03] LABS: Glucose,Whole Blood 132 mg/dL (75-99)
--- NOTE | 2019-03-24 14:34 | P.PN ---
Subjective Progress Note Date: 03/24/19 This is a pleasant 84-year-old female with past medical history significant for coronary artery disease and prior stenting which was performed in February of this year at [facility], she follows with Dr. Villeda out of [place], she also has history of any kidney disease, hypertension, hyperlipidemia, chronic anemia, recent hospitalization with symptoms of shortness of breath earlier this month, at [facility] was ruled out on that admission. She does have history of recent pneumonia. She presents to the hospital on this occasion following a syncopal episode. Patient states she had just used her albuterol inhaler, went to the sink to rinse out her mouth, all of a sudden she could not breathe, the next thing she recalls is waking up on the floor. She does state that she had a lozenge in her mouth and is unsure if perhaps she swallowed that. She did bite her tongue. Overall the patient states she's been doing fairly well but she has had persistent exertional shortness of breath. She had a recent office visit with her test operator, she was told at that time that everything looked good. EKG on presentation here showed atrial fibrillation with moderately rapid ventricular response. Patient has no prior documented history of A. fib. On her recent admission to the hospital she was in a normal sinus rhythm for that duration. Chest x-ray shows chronic coarse pulmonary interstitial infiltrates consistent with acute and chronic interstitial pneumonia. CAT scan of the head and spine revealed old mild chronic ischemic changes in the left frontal lobe no acute intracranial abnormality. No fracture. Pelvic x-ray was normal. Blood pressure on arrival here 148/80 with a heart rate of 120, 93% on room air. Blood pressure 112/70 with a heart rate in the 80s this morning, 93% on 2 L of oxygen. Patient continues to be in atrial fibrillation this morning. White blood cell count on admission 9.3, hemoglobin 9.5, platelet count 372. Sodium 138, potassium 4.0, BUN 43 and creatinine 1.3. Troponin 0.012. TSH level 4.9. White blood cell count this morning 12.3, hemoglobin 9.3, platelet count 371. Sodium 140, potassium 4.0, BUN 39 and creatinine 1.2. At the time of my examination this morning, the patient states she feels tired, no other complaints. 03/24/2019 Patient was seen and examined this morning, sitting up in her chair at bedside. Slept very well through the night last night. Blood pressure 136/70 with a heart rate in the 80s. She continues to be in atrial fibrillation, her heart rate is under adequate control. Let pressure 130/50 with a heart rate in the 90s. Patient is on Eliquis for anticoagulation. Echocardiogram with Doppler study revealed a normal left ventricular systolic function. From our perspective she may be able to be discharged home today, she has a follow-up appointment with her test operator scheduled. Objective - Vital Signs Vital signs: Vital Signs Temp 98.0 F 03/24/19 12:00 Pulse 94 03/24/19 12:00 Resp 18 03/24/19 12:00 BP 130/56 03/24/19 12:00 Pulse Ox 96 03/24/19 12:00 Intake & Output 03/23/19 03/24/19 03/24/19 18:59 06:59 18:59 Intake Total 1042 360 Output Total 800 Balance 1042 -800 360 Weight 93.8 kg Intake: Oral 1042 360 Output: Urine 800 Other: Voiding Method Toilet Toilet Toilet # Voids 1 2 2 # Bowel Movements 1 - Exam PHYSICAL EXAMINATION: GENERAL: 84-year-old female in no acute distress at the time of my examination HEENT: Head is atraumatic, normocephalic. Pupils equal, round. Sclera ani cteric. Conjunctiva are clear. Mucous membranes of the mouth are moist. Neck is supple. There is no elevated jugular venous pressure. No carotid bruit is heard. HEART EXAMINATION: Heart S1 and S2 irregularly irregular CHEST EXAMINATION: Lungs are clear to auscultation and precussion. No chest wall tenderness is noted on palpation or with deep breathing. ABDOMEN: Soft, nontender. Bowel sounds are heard. No organomegaly noted. EXTREMITIES: 2+ peripheral pulses with no evidence of peripheral edema and no calf tenderness noted. NEUROLOGIC patient is awake, alert and oriented 3 . . - Labs CBC & Chem 7: 03/23/19 06:31 03/23/19 06:31 Labs: Abnormal Lab Results - Last 24 Hours (Table) 03/23/19 03/23/19 03/24/19 Range/Units 16:37 20:29 06:07 APTT 21.3 L (22.0-30.0) sec POC Glucose (mg/dL) 148 H 150 H (75-99) mg/dL 03/24/19 Range/Units 11:50 APTT (22.0-30.0) sec POC Glucose (mg/dL) 132 H (75-99) mg/dL Assessment and Plan Plan: Assessment and plan #1 syncope, rule out cardiac causes #2 coronary artery disease with recent stent placement in February of this year at [facility] #3Chronic kidney disease #4 hypertension #5 hyperlipidemia #6 chronic anemia #7 recent pneumonia, chest x-ray on this admission suggests possible pneumonia. #8 atrial fibrillation with moderately rapid ventricular response, new onset Plan From cardiology's perspective, patient may be able to be discharged once cleared by primary. She does have a follow-up appointment scheduled with her test operator. He's been advised to keep this. We will continue anticoagulation in the form of Eliquis. DNP note has been reviewed, I agree with a documented findings and plan of care. Patient was seen and examined.
--- NOTE | 2019-03-24 15:31 | P.PN ---
Subjective Progress Note Date: 03/24/19 Principal diagnosis: Syncope Doing well, no further episodes of syncope. No chest pain or shortness of breath. No dizziness. Objective - Vital Signs Vital signs: Vital Signs Temp 98.0 F 03/24/19 12:00 Pulse 94 03/24/19 12:00 Resp 18 03/24/19 12:00 BP 130/56 03/24/19 12:00 Pulse Ox 96 03/24/19 12:00 Intake & Output 03/23/19 03/24/19 03/24/19 18:59 06:59 18:59 Intake Total 1042 360 Output Total 800 Balance 1042 -800 360 Weight 93.8 kg Intake: Oral 1042 360 Output: Urine 800 Other: Voiding Method Toilet Toilet Toilet # Voids 1 2 2 # Bowel Movements 1 - Exam Constitutional: No acute distress, conversant, pleasant Eyes:Anicteric sclerae, moist conjunctiva, no lid-lag, PERRLA, ENMT: Oropharynx clear, no erythema, exudates Neck: Supple, FROM, no masses, or JVD, No carotid bruits, No thyromegaly Lungs: Clear to auscultation, Clear to percussion, Normal respiratory effort, no accessory muscle use Cardiovascular: Irregularly irregular, normal rate No murmurs, gallops, or rubs, No peripheral edema Abdominal: Soft, Nontender, no guarding, rebound or rigidity, Normoactive bowel sounds, No hepatomegaly, No splenomegaly, No palpable mass Skin: Normal temperature, tone, texture, turgor, no induration, No subcutaneous nodules, No rash, lesions, No ulcers Extremities: No digital cyanosis, No clubbing, Pedal pulses intact and symmetrical, Radial pulses intact and symmetrical, No calf tenderness Psychiatric: Alert and oriented to person, place and time, appropriate affect, intact judgement Neuro: Muscles Strength 5/5 in all 4 extremities, Sensation to light touch grossly present throughout, Cranial nerves II-XII grossly intact, no focal sensory deficits - Labs CBC & Chem 7: 03/23/19 06:31 03/23/19 06:31 Labs: Abnormal Lab Results - Last 24 Hours (Table) 03/23/19 03/23/19 03/24/19 Range/Units 16:37 20:29 06:07 APTT 21.3 L (22.0-30.0) sec POC Glucose (mg/dL) 148 H 150 H (75-99) mg/dL 03/24/19 Range/Units 11:50 APTT (22.0-30.0) sec POC Glucose (mg/dL) 132 H (75-99) mg/dL Assessment and Plan Plan: Syncope Likely sec to newly diagnosed Afib w/ RVR. Started on AC per cardio. No epilepsy per neuro, Echocardiogram done recently , ok. Cardiac monitoring Normocytic anemia This is being worked up her PCP CKD stage III -Monitor BMP Diabetes mellitus -MARYSOL -Blood glucose monitoring Chronic conditions: Pulmonary fibrosis, coronary artery disease, hypertension, hyperlipidemia, COPD -Continue with home meds DVT prophylaxis On AC
[2019-03-24 17:22] LABS: Glucose,Whole Blood 176 mg/dL (75-99)
[2019-03-24] MEDS: ATORVASTATIN 20 MG TAB PO SCH (20:21)
[2019-03-24 20:34] LABS: Glucose,Whole Blood 146 mg/dL (75-99)
[2019-03-25 05:23] VITALS: RESP 18
[2019-03-25 06:27] LABS: Glucose,Whole Blood 105 mg/dL (75-99)
[2019-03-25] MEDS: INSULIN ASPART (NovoLOG) 100 UNIT/ML VIAL SQ SCH ×3 (06:35→17:20)
[2019-03-25] MEDS: SODIUM CHLORIDE 0.9% 1,000 ML IV SCH ×2 (06:35→12:25)
[2019-03-25] MEDS: CHOLECALCIFEROL 1,000 UNIT TAB PO SCH (08:26)
[2019-03-25] MEDS: APIXABAN 2.5 MG TABLET PO SCH ×2 (08:26→20:41)
[2019-03-25] MEDS: predniSONE 10 MG TAB PO SCH (08:26)
[2019-03-25] MEDS: CLOPIDOGREL 75 MG TAB PO SCH (08:26)
[2019-03-25] MEDS: FERROUS SULFATE 325 MG TAB PO SCH (08:27)
[2019-03-25] MEDS: MULTIVITAMINS, THERA 1 EACH TAB PO SCH (08:27)
[2019-03-25] MEDS: ISOSORBIDE MONONITRATE ER 30 MG TAB.ER.24H PO SCH (08:27)
[2019-03-25] MEDS: CYANOCOBALAMIN 500 MCG TAB PO SCH (08:27)
[2019-03-25] MEDS: FAMOTIDINE 20 MG TAB PO SCH (08:27)
[2019-03-25] MEDS: ALLOPURINOL 100 MG TAB PO SCH (08:27)
[2019-03-25] MEDS: amLODIPine 5 MG TAB PO SCH (08:27)
[2019-03-25] MEDS: SYMBICORT 160-4.5 MCG INHALER INHALATION SCH ×2 (09:01→21:14)
[2019-03-25] MEDS: METOPROLOL TARTRATE 25 MG TAB PO SCH ×2 (11:07→20:42)
--- NOTE | 2019-03-25 12:08 | PN ---
PROGRESS NOTE Mrs. Hernandez is an 84-year-old female with known history of coronary artery disease who presented to the hospital with symptoms of syncope. She was noted to be in atrial fibrillation of unknown duration. She is feeling better today. Her breathing is better. She is denying any chest pain. She denies any dizziness or palpitation. She denies any nausea. She is ambulating without difficulty. On the monitor, she is in atrial fibrillation with no episode of pauses with rare episodes of rapid ventricular response. Her energy is better. She continues to be on Eliquis 2.5 mg twice a day, Plavix 75 mg daily, amlodipine 5 mg daily, isosorbide mononitrate 30 mg daily, insulin. PHYSICAL EXAMINATION: Blood pressure 136/60 with the heart rate in the 90s. LUNGS: Clear. HEART: Irregular, irregular. S1, S2. No S3. No rub. ABDOMEN: Soft, nontender. EXTREMITIES: No edema. IMPRESSION: 1. Atrial fibrillation of unknown duration. 2. History of stenting done early this year. 3. History of hypertension. 4. Hyperlipidemia. 5. Chronic kidney disease. RECOMMENDATION: We will continue on the present therapy. I will stop the amlodipine and add to her regimen Lopressor 25 mg twice a day. Increase her level of activity. If she remains stable without any further symptoms, I would expect she should be able to be discharged home tomorrow and follow with her primary brown sourer to be evaluated for further workup and the need to try to restore sinus mechanism. At this time, there is no evidence of bradycardia to explain her presentation. MMODL / IJN: [id number] /
[2019-03-25 12:13] LABS: Glucose,Whole Blood 143 mg/dL (75-99)
--- NOTE | 2019-03-25 14:14 | P.PN ---
Subjective Progress Note Date: 03/25/19 Principal diagnosis: Syncope Patient doing well, no further episodes of passing out, syncope or dizziness. No chest pain or shortness of breath. No fevers or chills. Objective - Vital Signs Vital signs: Vital Signs Temp 96.1 F L 03/25/19 11:42 Pulse 95 03/25/19 11:42 Resp 18 03/25/19 11:42 BP 122/57 03/25/19 11:42 Pulse Ox 95 03/25/19 11:42 Intake & Output 03/24/19 03/25/19 03/25/19 18:59 06:59 18:59 Intake Total 960 490 Balance 960 490 Weight 93.2 kg Intake: Intake, IV Titration 10 Amount Sodium Chloride 0.9% 1, 10 000 ml @ 80 mls/hr IV . [id number] [facility] Rx#:[id number] Oral 960 480 Other: Voiding Method Toilet Toilet # Voids 2 1 - Exam Constitutional: No acute distress, conversant, pleasant Eyes:Anicteric sclerae, moist conjunctiva, no lid-lag, PERRLA, ENMT: Oropharynx clear, no erythema, exudates Neck: Supple, FROM, no masses, or JVD, No carotid bruits, No thyromegaly Lungs: Clear to auscultation, Clear to percussion, Normal respiratory effort, no accessory muscle use Cardiovascular: Irregularly irregular, normal rate No murmurs, gallops, or rubs, No peripheral edema Abdominal: Soft, Nontender, no guarding, rebound or rigidity, Normoactive bowel sounds, No hepatomegaly, No splenomegaly, No palpable mass Skin: Normal temperature, tone, texture, turgor, no induration, No subcutaneous nodules, No rash, lesions, No ulcers Extremities: No digital cyanosis, No clubbing, Pedal pulses intact and symmetrical, Radial pulses intact and symmetrical, No calf tenderness Psychiatric: Alert and oriented to person, place and time, appropriate affect, intact judgement Neuro: Muscles Strength 5/5 in all 4 extremities, Sensation to light touch grossly present throughout, Cranial nerves II-XII grossly intact, no focal sensory deficits - Labs CBC & Chem 7: 03/23/19 06:31 03/23/19 06:31 Labs: Abnormal Lab Results - Last 24 Hours (Table) 03/24/19 03/24/19 03/25/19 Range/Units 16:51 20:32 06:26 POC Glucose (mg/dL) 176 H 146 H 105 H (75-99) mg/dL 03/25/19 Range/Units 12:08 POC Glucose (mg/dL) 143 H (75-99) mg/dL Assessment and Plan Plan: Syncope Likely sec to newly diagnosed Afib w/ RVR. Started on AC per cardio. Patient's heart rate was in the 110s last night, discussed with cardiology, will DC Norvasc and start metoprolol. Monitor on this regimen overnight for any pauses or bradycardia. No epilepsy per neuro, convulsive syncope suspected. Echocardiogram done recently , ok. Cardiac monitoring Normocytic anemia This is being worked up her PCP CKD stage III -Monitor BMP Diabetes mellitus -MARYSOL -Blood glucose monitoring Chronic conditions: Pulmonary fibrosis, coronary artery disease, hypertension, h yperlipidemia, COPD -Continue with home meds DVT prophylaxis On AC Anticipated discharge: Home, 03/26
[2019-03-25 17:12] LABS: Glucose,Whole Blood 156 mg/dL (75-99)
[2019-03-25] MEDS: ATORVASTATIN 20 MG TAB PO SCH (20:41)
[2019-03-26] MEDS: SODIUM CHLORIDE 0.9% 1,000 ML IV SCH (02:39)
[2019-03-26 06:28] LABS: Glucose,Whole Blood 94 mg/dL (75-99)
[2019-03-26] MEDS: INSULIN ASPART (NovoLOG) 100 UNIT/ML VIAL SQ SCH (06:44)
[2019-03-26 06:46] LABS: Calcium 8.9 mg/dL (8.4-10.2); Potassium 4.4 mmol/L (3.5-5.1)
[2019-03-26] MEDS: SYMBICORT 160-4.5 MCG INHALER INHALATION SCH (08:02)
[2019-03-26] MEDS: CHOLECALCIFEROL 1,000 UNIT TAB PO SCH (09:03)
[2019-03-26] MEDS: CLOPIDOGREL 75 MG TAB PO SCH (09:03)
[2019-03-26] MEDS: FAMOTIDINE 20 MG TAB PO SCH (09:03)
[2019-03-26] MEDS: predniSONE 10 MG TAB PO SCH (09:03)
[2019-03-26] MEDS: FERROUS SULFATE 325 MG TAB PO SCH (09:03)
[2019-03-26] MEDS: METOPROLOL TARTRATE 25 MG TAB PO SCH (09:03)
[2019-03-26] MEDS: MULTIVITAMINS, THERA 1 EACH TAB PO SCH (09:03)
[2019-03-26] MEDS: APIXABAN 2.5 MG TABLET PO SCH (09:03)
[2019-03-26] MEDS: ALLOPURINOL 100 MG TAB PO SCH (09:03)
[2019-03-26] MEDS: CYANOCOBALAMIN 500 MCG TAB PO SCH (09:03)
[2019-03-26] MEDS: ISOSORBIDE MONONITRATE ER 30 MG TAB.ER.24H PO SCH (09:03)
[2019-03-26 09:38] VITALS: BP 121/57; PULSE 81; TEMP 97.5
--- NOTE | 2019-03-26 09:55 | P.DS ---
Providers Date of admission: 03/25/19 13:17 Expected date of discharge: 03/26/19 Attending physician: Nataly Avila MD Consults: 03/22/19 22:06 Consult Physician Routine Consulting Provider: Carlitos Cummings Consult Reason/Comments: syncope, new onset afib Do you want consulting provider notified?: Yes 03/23/19 00:43 Consult Physician Urgent Consulting Provider: Ana Wilkinson Consult Reason/Comments: Loss of consciousness, possible seizure Do you want consulting provider notified?: Yes Primary care physician: [facility] Course: 84-year-old female with a PMH of coronary artery disease, hypertension, hyperlipidemia, recently diagnosed pulmonary fibrosis, COPD, diabetes mellitus who presented to the ED after an episode of loss of consciousness. She was in her usual state of health at home and was working in her kitchen standing up, when she suddenly lost consciousness, with no preceding symptoms. She woke up after an unknown amount of time with her by her side. She was down for an unknown amount of time. After she regained consciousness she did have confusion for a brief period of time, had bit her tongue on the left side, and had urinary incontinence. She denied chest pain, shortness of breath, palpitations, nausea, vomiting, or diaphoresis prior to or after the event. She notes that she has never previously lost consciousness. The patient also denied recent fever, chills, cough, or diarrhea. She underwent an extensive evaluation in the emergency room with pelvis x-ray that was unremarkable, head and C-spine CT which revealed chronic ischemic changes, chest x-ray with chronic parenchymal changes, and an EKG which showed A. fib with RVR at 104 bpm. Laboratory evaluation revealed a WBC count of 9.3, hemoglobin of 9.5, platelets 372, BUN 43, creatinine 1.32, glucose 134, TSH 4.97, troponin less than 0.012. The patient is admitted to the medicine service for further management. Patient was monitored on telemetry which showed persistent atrial fibrillation. She was seen by cardiology as well as neurology. She had an EEG which did not show any epileptiform discharges. Neurology advised that her syncope was likely convulsive and that she did not have a seizure. Syncope was thought to be secondary to atrial fibrillation. Patient was started on anticoagulation therapy with apixiban. Due to RVR she was started on metoprolol as well. Norvasc was discontinued. She did have an echocardiogram done recently , and that was ok. Cardiology did not recommend cardioversion due to old age and high chance of recurrence. After starting metoprolol patient does not have any bradycardia or pauses. She did not have any further episodes of syncope or dizziness. She'll be discharged home in stable condition. She is aware that she needs follow-up with her interpretive program coordinator as well as her primary care physician. Time for discharge 35 minutes. Patient Condition at Discharge: Fair Plan - Discharge Summary New Discharge Prescriptions: New Apixaban [Eliquis] 2.5 mg PO BID 30 Days #60 tablet Metoprolol Tartrate [Lopressor] 25 mg PO BID 30 Days #60 tab Continue Cyanocobalamin [Vitamin B-12] 1,000 mcg PO DAILY Multivitamins, Thera [Multivitamin (formulary)] 1 tab PO DAILY Potassium 99 mg PO DAILY Atorvastatin [Lipitor] 20 mg PO HS Linagliptin [Tradjenta] 5 mg PO DAILY Ferrous Sulfate [Iron (65 MG Elemental)] 325 mg PO DAILY Cholecalciferol [Vitamin D3 (25 Mcg = 1000 Iu)] 2,000 unit PO DAILY Cetirizine HCl [Zyrtec] 10 mg PO DAILY PRN PRN Reason: Allergy Symptoms Aspirin EC [Ecotrin Low Dose] 81 mg PO DAILY Famotidine [Pepcid] 20 mg PO DAILY Clopidogrel [Plavix] 75 mg PO DAILY Allopurinol [Zyloprim] 100 mg PO DAILY Ipratropium-Albuterol Nebulize [Duoneb 0.5 mg-3 mg/3 ml Soln] 3 ml INHALATION RT-QID #120 ampul.neb Isosorbide Mononitrate ER [Imdur] 30 mg PO DAILY #30 tab.er.24h Budesonide-Formot 160-4.5 Mcg [Symbicort 160-4.5 Mcg Inhaler] 2 puff INHALATION RT-BID #1 puff L.acidoph,Paracasei, B.lactis [Probiotic] 1 cap PO DAILY predniSONE See Taper PO DAILY Discontinued amLODIPine [Norvasc] 5 mg PO DAILY Discharge Medication List Cyanocobalamin [Vitamin B-12] 1,000 mcg PO DAILY 03/05/15 [History] Multivitamins, Thera [Multivitamin (formulary)] 1 tab PO DAILY 03/05/15 [History] Potassium 99 mg PO DAILY 03/05/15 [History] Atorvastatin [Lipitor] 20 mg PO HS 03/11/15 [History] Aspirin EC [Ecotrin Low Dose] 81 mg PO DAILY 02/10/19 [History] Cetirizine HCl [Zyrtec] 10 mg PO DAILY PRN 02/10/19 [History] Cholecalciferol [Vitamin D3 (25 Mcg = 1000 Iu)] 2,000 unit PO DAILY 02/10/19 [History] Clopidogrel [Plavix] 75 mg PO DAILY 02/10/19 [History] Famotidine [Pepcid] 20 mg PO DAILY 02/10/19 [History] Ferrous Sulfate [Iron (65 MG Elemental)] 325 mg PO DAILY 02/10/19 [History] Linagliptin [Tradjenta] 5 mg PO DAILY 02/10/19 [History] Allopurinol [Zyloprim] 100 mg PO DAILY 03/10/19 [History] Budesonide-Formot 160-4.5 Mcg [Symbicort 160-4.5 Mcg Inhaler] 2 puff INHALATION RT-BID #1 puff 03/12/19 [Rx] Ipratropium-Albuterol Nebulize [Duoneb 0.5 mg-3 mg/3 ml Soln] 3 ml INHALATION RT-QID #120 ampul.neb 03/12/19 [Rx] Isosorbide Mononitrate ER [Imdur] 30 mg PO DAILY #30 tab.er.24h 03/12/19 [Rx] L.acidoph,Paracasei, B.lactis [Probiotic] 1 cap PO DAILY 03/22/19 [History] predniSONE See Taper PO DAILY 03/22/19 [History] Apixaban [Eliquis] 2.5 mg PO BID 30 Days #60 tablet 03/26/19 [Rx] Metoprolol Tartrate [Lopressor] 25 mg PO BID 30 Days #60 tab 03/26/19 [Rx] Follow up Appointment(s)/Referral(s): Cardiology, [Other] - 1 Week (Please call and schedule a follow up appointment with your interpretive program coordinator) Josh Llanos MD [Primary Care Provider] - 03/27/19 12:30 pm (Saturday with Ana AGUILA) Patient Instructions/Handouts: A-fib (Atrial Fibrillation) (DC), Safe Use of Anticoagulants (DC) Activity/Diet/Wound Care/Special Instructions: Volodymyr script filled and ready at [facility] pharmacy - 30 day free coupon applied Patient requires walker at time of discharge secondary to unsteady gait - to be delivered by [facility] prior to discharge
== END 2019-03-26 10:48 | disposition home or self-care (01) | DRG 310 ==
LOC: EC 18:50 → 3SCARD 22:05 → OBSVTOIN 03-25 13:17
PROVIDERS: ADMIT Internal Medicine; ATTEND Internal Medicine
DX: I48.1 Persistent atrial fibrillation (principal); E11.22 Type 2 diabetes mellitus with diabetic chronic kidney disease; J44.9 Chronic obstructive pulmonary disease, unspecified; J84.10 Pulmonary fibrosis, unspecified; R56.9 Unspecified convulsions; D64.9 Anemia, unspecified; N18.3 Chronic kidney disease, stage 3 (moderate); R55 Syncope and collapse; E78.5 Hyperlipidemia, unspecified; I12.9 Hypertensive chronic kidney disease with stage 1 through stage 4 chronic kidney disease, or unspecified chronic kidney disease; I25.10 Atherosclerotic heart disease of native coronary artery without angina pectoris; M10.9 Gout, unspecified; Z79.02 Long term (current) use of antithrombotics/antiplatelets; Z79.51 Long term (current) use of inhaled steroids; Z79.82 Long term (current) use of aspirin; Z79.84 Long term (current) use of oral hypoglycemic drugs; Z79.899 Other long term (current) drug therapy; Z87.01 Personal history of pneumonia (recurrent); Z87.891 Personal history of nicotine dependence; Z95.5 Presence of coronary angioplasty implant and graft; Z88.5 Allergy status to narcotic agent; Z88.8 Allergy status to other drugs, medicaments and biological substances; Z88.1 Allergy status to other antibiotic agents; Z91.041 Radiographic dye allergy status; Z98.49 Cataract extraction status, unspecified eye; Z96.1 Presence of intraocular lens; Z83.3 Family history of diabetes mellitus; W18.30XA Fall on same level, unspecified, initial encounter
CPT/HCPCS: 36415; 70450; 71046; 72125; 72170; 80048; 80053; 81001; 82607; 82728; 82746; 83540; 83550; 83735; 84443; 84484; 85025; 85027; 85045; 85610; 85730; 93005; 93306; 94640; 94760; 95816; 96365; 96366; 96376; 99285